=== PATIENT | male | born 1945 | race Caucasian/White ===

== ENCOUNTER 2016-07-03 08:00 | Outpatient (CLI) | payer MEDICARE, MEDICAID | END 2016-07-03 08:01 | disposition home or self-care (01) | DX: E11.9 Type 2 diabetes mellitus without complications (principal) ==

== ENCOUNTER 2016-10-06 08:56 | Outpatient (CLI) | payer MEDICARE, MEDICAID | END 2016-10-06 08:57 | disposition home or self-care (01) | LOC: LAB.N 08:56 | PROVIDERS: ATTEND Nurse Practitioner Gerontology | DX: E11.9 Type 2 diabetes mellitus without complications (principal) | CPT/HCPCS: 36415; 83036 ==

== ENCOUNTER 2016-10-12 09:33 | Outpatient (CLI) | payer MEDICARE, MEDICAID ==
--- NOTE | 2016-10-12 11:46 | XRAY Report ---
TWO VIEW BILATERAL CALCANEUS: 10/12/2016 CLINICAL INDICATION: Bilateral pain. FINDINGS: Frontal and lateral views of the bilateral calcanei demonstrate degenerative changes, with small plantar and posterior calcaneal spurs. There is no evidence of acute fracture. IMPRESSION: DEGENERATIVE CHANGES. NO EVIDENCE OF CALCANEAL FRACTURE. JOB #: [id number] EXT JOB #:[id number]
== END 2016-10-12 09:34 | disposition home or self-care (01) ==
LOC: DI 09:33
PROVIDERS: ATTEND Podiatrist
DX: M79.672 Pain in left foot (principal); M19.072 Primary osteoarthritis, left ankle and foot; M19.071 Primary osteoarthritis, right ankle and foot; M77.32 Calcaneal spur, left foot; M77.31 Calcaneal spur, right foot

== ENCOUNTER 2017-01-19 08:00 | Outpatient (CLI) | payer MEDICARE, MEDICAID ==
[2017-01-19 20:27] LABS: HEMOGLOBIN A1C 0.98 g/dL
== END 2017-01-19 08:01 | disposition home or self-care (01) ==
LOC: LAB.N 08:00
PROVIDERS: ATTEND Nurse Practitioner Gerontology
DX: E11.9 Type 2 diabetes mellitus without complications (principal)
CPT/HCPCS: 36415; 83036

== ENCOUNTER 2017-04-23 08:00 | Outpatient (CLI) | payer MEDICARE, MEDICAID ==
[2017-04-23 13:29] LABS: BASOPHILS # (AUTO) 0.1 10^3/uL (0.0-0.1); BASOPHILS % (AUTO) 0.6 %; EOSINOPHILS # (AUTO) 0.2 10^3/uL (0.0-0.7); EOSINOPHILS % (AUTO) 1.5 %; HGB - HEMOGLOBIN 14.4 g/dL (14.0-18.0); LYMPHOCYTES # (AUTO) 2.6 10^3/uL (1.5-3.5); LYMPHOCYTES % (AUTO) 20.7 %; MEAN CORPUSCULAR HEMOGLOBIN 29.1 pg (27.0-31.0); MEAN CORPUSCULAR HGB CONC 33.1 g/dL (32.0-36.0); MEAN CORPUSCULAR VOLUME 87.9 fL (80.0-94.0); MEAN PLATELET VOLUME 8.8 fL (7.4-11.4); MONOCYTES # (AUTO) 0.9 10^3/uL (0.0-1.0); MONOCYTES % (AUTO) 6.8 %; NEUTROPHILS # (AUTO) 8.8 10^3/uL (1.5-6.6); NEUTROPHILS % (AUTO) 70.4 %; PLT - PLATELET COUNT 231 10^3/uL (130-450); RED BLOOD COUNT 4.94 10^6/uL (4.70-6.10); RED CELL DISTRIBUTION WIDTH 14.1 % (12.0-15.0); WHITE BLOOD COUNT 12.5 x10^3/uL (4.8-10.8)
[2017-04-23 13:41] LABS: ALBUMIN 3.6 g/dL (3.2-5.5); ALBUMIN/GLOBULIN RATIO 1.2 (1.0-2.2); ALKALINE PHOSPHATASE 47 IU/L (42-121); ALT ALANINE AMINOTRANSFERASE 22 IU/L (10-60); AST ASPARTATE AMINOTRANSFERASE 16 IU/L (10-42); BILIRUBIN,TOTAL 0.4 mg/dL (0.2-1.0); BUN - BLOOD UREA NITROGEN 16 mg/dL (6-20); CALCIUM 8.6 mg/dL (8.5-10.3); CARBON DIOXIDE - CO2 26 mmol/L (21-32); CHLORIDE 106 mmol/L (101-111); CHOL/HDL RATIO 3.4 (<5.0); CHOLESTEROL 127 mg/dL; CREATININE 0.9 mg/dL (0.6-1.2); GFR - MDRD 83 (>89); GLUCOSE 145 mg/dL (70-100); HDL CHOLESTEROL 37 mg/dL; LDL CHOLESTEROL,CALCULATED 77 mg/dL; LDL/HDL RATIO 2.1 (<3.6); SODIUM 137 mmol/L (135-145); TOTAL PROTEIN 6.6 g/dL (6.7-8.2); VLDL CHOLESTEROL 13 mg/dL
[2017-04-23 13:43] LABS: HB2 TOTAL 16.1 g/dL; HEMOGLOBIN A1C 0.98 g/dL; HEMOGLOBIN A1C % 7.7 % (4.6-6.2)
== END 2017-04-23 08:01 | disposition home or self-care (01) ==
LOC: LAB.N 08:00
PROVIDERS: ATTEND Nurse Practitioner Gerontology
DX: I10 Essential (primary) hypertension (principal); E11.9 Type 2 diabetes mellitus without complications; E78.1 Pure hyperglyceridemia; E78.5 Hyperlipidemia, unspecified
CPT/HCPCS: 36415; 80053; 80061; 83036; 85025

== ENCOUNTER 2017-07-23 08:05 | Outpatient (CLI) | payer MEDICARE, MEDICAID ==
[2017-07-23 12:37] LABS: HB2 TOTAL 16.3 g/dL; HEMOGLOBIN A1C 0.97 g/dL; HEMOGLOBIN A1C % 7.6 % (4.6-6.2)
== END 2017-07-23 08:06 | disposition home or self-care (01) ==
LOC: LAB.N 08:05
PROVIDERS: ATTEND Nurse Practitioner Gerontology
DX: E11.9 Type 2 diabetes mellitus without complications (principal)
CPT/HCPCS: 36415; 83036

== ENCOUNTER 2017-10-27 08:00 | Outpatient (CLI) | payer MEDICARE, MEDICAID ==
[2017-10-27 13:11] LABS: ALBUMIN 3.4 g/dL (3.2-5.5); ALBUMIN/GLOBULIN RATIO 0.9 (1.0-2.2); BILIRUBIN,TOTAL 0.5 mg/dL (0.2-1.0); CALCIUM 8.8 mg/dL (8.5-10.3); CREATININE 0.9 mg/dL (0.6-1.2); TOTAL PROTEIN 7.1 g/dL (6.7-8.2)
[2017-10-27 13:19] LABS: HB2 TOTAL 16.1 g/dL; HEMOGLOBIN A1C 0.9 g/dL; HEMOGLOBIN A1C % 7.3 % (4.6-6.2)
== END 2017-10-27 08:01 | disposition home or self-care (01) ==
LOC: LAB.N 08:00
PROVIDERS: ATTEND Nurse Practitioner Gerontology
DX: E11.9 Type 2 diabetes mellitus without complications (principal); R25.2 Cramp and spasm
CPT/HCPCS: 36415; 80053; 83036; 83735

== ENCOUNTER 2018-02-11 09:12 | Outpatient (CLI) | payer MEDICARE, MEDICAID ==
[2018-02-11 13:24] LABS: ALBUMIN 3.7 g/dL (3.2-5.5); ALBUMIN/GLOBULIN RATIO 1.2 (1.0-2.2); BILIRUBIN,TOTAL 0.5 mg/dL (0.2-1.0); CALCIUM 8.7 mg/dL (8.5-10.3); CREATININE 1.1 mg/dL (0.6-1.2); MAGNESIUM 1.9 mg/dL (1.7-2.8); TOTAL PROTEIN 6.9 g/dL (6.7-8.2)
[2018-02-11 14:13] LABS: HB2 TOTAL 15.7 g/dL; HEMOGLOBIN A1C 0.86 g/dL; HEMOGLOBIN A1C % 7.2 % (4.6-6.2)
== END 2018-02-11 09:13 | disposition home or self-care (01) ==
LOC: LAB.N 09:12
PROVIDERS: ATTEND Nurse Practitioner Gerontology
DX: E11.9 Type 2 diabetes mellitus without complications (principal); R25.2 Cramp and spasm
CPT/HCPCS: 36415; 80053; 83036; 83735

== ENCOUNTER 2018-06-02 08:00 | Outpatient (CLI) | payer MEDICARE, MEDICAID ==
[2018-06-02 13:21] LABS: HB2 TOTAL 16.1 g/dL; HEMOGLOBIN A1C 0.97 g/dL; HEMOGLOBIN A1C % 7.7 % (4.6-6.2)
== END 2018-06-02 23:59 | disposition home or self-care (01) ==
LOC: LAB.N 08:00
PROVIDERS: ATTEND Nurse Practitioner Gerontology
DX: E11.9 Type 2 diabetes mellitus without complications (principal)
CPT/HCPCS: 36415; 83036

== ENCOUNTER 2018-09-01 14:03 | Outpatient (CLI) | payer MEDICARE, MEDICAID ==
[2018-09-01 19:23] LABS: HB2 TOTAL 15.4 g/dL; HEMOGLOBIN A1C 0.98 g/dL
== END 2018-09-01 23:59 | disposition home or self-care (01) ==
LOC: LAB.N 14:03
PROVIDERS: ATTEND Nurse Practitioner Gerontology
DX: E11.9 Type 2 diabetes mellitus without complications (principal)
CPT/HCPCS: 36415; 83036

== ENCOUNTER 2018-12-05 08:00 | Outpatient (CLI) | payer MEDICARE, MEDICAID ==
[2018-12-05 19:10] LABS: CREATININE 0.8 mg/dL (0.6-1.2)
[2018-12-05 19:44] LABS: HB2 TOTAL 16.3 g/dL; HEMOGLOBIN A1C 1.04 g/dL
== END 2018-12-05 23:59 | disposition home or self-care (01) ==
LOC: LAB.N 08:00
PROVIDERS: ATTEND Nurse Practitioner Gerontology
DX: E11.9 Type 2 diabetes mellitus without complications (principal)
CPT/HCPCS: 36415; 80048; 82043; 83036

== ENCOUNTER 2019-04-18 13:31 | Outpatient (CLI) | payer MEDICARE, MEDICAID ==
[2019-04-18 19:17] LABS: HEMOGLOBIN A1C 0.9 g/dL; HEMOGLOBIN A1C % 7.6 % (4.6-6.2)
== END 2019-04-18 23:59 | disposition home or self-care (01) ==
LOC: LAB.N 13:31
PROVIDERS: ATTEND Nurse Practitioner Gerontology
DX: E11.9 Type 2 diabetes mellitus without complications (principal)
CPT/HCPCS: 36415; 83036

== ENCOUNTER 2019-08-08 08:00 | Outpatient (CLI) | payer MEDICARE, MEDICAID ==
[2019-08-08 17:16] LABS: CALCIUM 8.6 mg/dL (8.5-10.3); CREATININE 0.9 mg/dL (0.6-1.2)
[2019-08-08 17:53] LABS: HB2 TOTAL 15.2 g/dL; HEMOGLOBIN A1C 0.8 g/dL
== END 2019-08-08 23:59 | disposition home or self-care (01) ==
LOC: LAB.WCP 08:00
PROVIDERS: ATTEND Physician Assistant Medical
DX: E11.9 Type 2 diabetes mellitus without complications (principal)
CPT/HCPCS: 36415; 80048; 83036

== ENCOUNTER 2020-01-09 08:00 | Outpatient (CLI) | payer MEDICARE, MEDICAID ==
[2020-01-09 19:19] LABS: THYROID STIMULATING HORMONE 0.8 uIU/mL (0.34-5.60)
[2020-01-09 19:20] LABS: FREE T3 3.25 pg/mL (2.5-3.9)
[2020-01-09 19:21] LABS: FREE T4 (FREE THYROXINE) 0.89 ng/dL (0.58-1.64)
[2020-01-09 20:09] LABS: HEMOGLOBIN A1c% 7.8 % (4.27-6.07)
== END 2020-01-09 23:59 | disposition home or self-care (01) ==
LOC: LAB.WCP 08:00
PROVIDERS: ATTEND Family Medicine
DX: E78.5 Hyperlipidemia, unspecified (principal); E11.9 Type 2 diabetes mellitus without complications; I10 Essential (primary) hypertension
CPT/HCPCS: 36415; 80053; 80061; 83036; 83721; 84439; 84443; 84481

== ENCOUNTER 2020-04-09 08:35 | Outpatient (CLI) | payer MEDICARE, MEDICAID ==
[2020-04-09 13:47] LABS: CALCIUM 9.4 mg/dL (8.5-10.3); CREATININE 0.9 mg/dL (0.6-1.2)
[2020-04-09 14:11] LABS: HEMOGLOBIN A1c% 7.5 % (4.27-6.07)
== END 2020-04-09 23:59 | disposition home or self-care (01) ==
LOC: LAB.WCP 08:35
PROVIDERS: ATTEND Family Medicine
DX: I10 Essential (primary) hypertension (principal); E11.9 Type 2 diabetes mellitus without complications
CPT/HCPCS: 36415; 80048; 83036

== ENCOUNTER 2020-10-08 08:00 | Outpatient (CLI) | payer MEDICARE, MEDICAID ==
[2020-10-08 11:40] LABS: BASOPHILS # (AUTO) 0.1 10^3/uL (0.0-0.1); BASOPHILS % (AUTO) 0.5 %; EOSINOPHILS # (AUTO) 0.2 10^3/uL (0.0-0.7); EOSINOPHILS % (AUTO) 2.1 %; HCT - HEMATOCRIT 45.2 % (42.0-52.0); HGB - HEMOGLOBIN 14.7 g/dL (14.0-18.0); LYMPHOCYTES # (AUTO) 2.7 10^3/uL (1.5-3.5); LYMPHOCYTES % (AUTO) 23.5 %; MEAN CORPUSCULAR HEMOGLOBIN 29.5 pg (27.0-31.0); MEAN CORPUSCULAR HGB CONC 32.5 g/dL (32.0-36.0); MEAN CORPUSCULAR VOLUME 90.8 fL (80.0-94.0); MEAN PLATELET VOLUME 10.4 fL (7.4-11.4); MONOCYTES # (AUTO) 0.9 10^3/uL (0.0-1.0); MONOCYTES % (AUTO) 8.2 %; NEUTROPHILS # (AUTO) 7.5 10^3/uL (1.5-6.6); NEUTROPHILS % (AUTO) 65.1 %; PLT - PLATELET COUNT 234 10^3/uL (130-450); RED BLOOD COUNT 4.98 10^6/uL (4.70-6.10); RED CELL DISTRIBUTION WIDTH 14.1 % (12.0-15.0); WHITE BLOOD COUNT 11.5 x10^3/uL (4.8-10.8)
[2020-10-08 12:07] LABS: ALBUMIN 3.9 g/dL (3.2-5.5); ALBUMIN/GLOBULIN RATIO 1.4 (1.0-2.2); ALKALINE PHOSPHATASE 46 IU/L (42-121); ALT ALANINE AMINOTRANSFERASE 20 IU/L (10-60); AST ASPARTATE AMINOTRANSFERASE 14 IU/L (10-42); BILIRUBIN,TOTAL 0.6 mg/dL (0.2-1.0); BUN - BLOOD UREA NITROGEN 13 mg/dL (6-20); CALCIUM 8.8 mg/dL (8.5-10.3); CARBON DIOXIDE - CO2 24 mmol/L (21-32); CHLORIDE 106 mmol/L (101-111); CHOL/HDL RATIO 3.1 (<5.0); CHOLESTEROL 134 mg/dL; CREATININE 0.8 mg/dL (0.6-1.2); GFR - MDRD 94 (>89); GLUCOSE 87 mg/dL (70-100); HDL CHOLESTEROL 43 mg/dL; LDL CHOLESTEROL,CALCULATED 77 mg/dL; LDL/HDL RATIO 1.8 (<3.6); SODIUM 139 mmol/L (135-145); TOTAL PROTEIN 6.6 g/dL (6.7-8.2); TRIGLYCERIDES 72 mg/dL; VLDL CHOLESTEROL 14 mg/dL
[2020-10-08 12:11] LABS: THYROID STIMULATING HORMONE 1.31 uIU/mL (0.34-5.60)
== END 2020-10-08 23:59 | disposition home or self-care (01) ==
LOC: LAB.WCP 08:00
PROVIDERS: ATTEND Family Medicine
DX: E78.5 Hyperlipidemia, unspecified (principal); R35.0 Frequency of micturition; G90.50 Complex regional pain syndrome I, unspecified; I10 Essential (primary) hypertension; E11.9 Type 2 diabetes mellitus without complications
CPT/HCPCS: 36415; 80053; 80061; 83721; 84153; 84443; 85025

== ENCOUNTER 2022-10-23 07:18 | Outpatient (CLI) | payer MEDICARE, MEDICAID ==
[2022-10-23 13:09] LABS: CALCIUM 8.8 mg/dL (8.5-10.3); CREATININE 0.9 mg/dL (0.6-1.2); POTASSIUM 3.7 mmol/L (3.5-5.0)
[2022-10-23 14:01] LABS: ESTIMATED AVERAGE GLUCOSE 189 mg/dL (70-100); HEMOGLOBIN A1c% 8.2 % (4.27-6.07)
== END 2022-10-23 07:19 | disposition home or self-care (01) ==
LOC: LAB.N 07:18
PROVIDERS: ATTEND Family Medicine
DX: I10 Essential (primary) hypertension (principal); E11.9 Type 2 diabetes mellitus without complications; E66.9 Obesity, unspecified; F17.210 Nicotine dependence, cigarettes, uncomplicated
CPT/HCPCS: 36415; 80048; 83036

== ENCOUNTER 2023-02-04 08:51 | Outpatient (CLI) | payer MEDICARE, MEDICAID ==
[2023-02-04 12:14] LABS: CREATININE,URINE 112.3 mg/dL; MICROALBUM/CREATININE RATIO,UR 88.2 ug/mg (<30.0); MICROALBUMIN,URINE 9.9 mg/dL
[2023-02-04 12:23] LABS: ALBUMIN 3.9 g/dL (3.2-5.5); ALBUMIN/GLOBULIN RATIO 1.6 (1.0-2.2); ALKALINE PHOSPHATASE 56 IU/L (42-121); ALT ALANINE AMINOTRANSFERASE 11 IU/L (10-60); AST ASPARTATE AMINOTRANSFERASE 10 IU/L (10-42); BILIRUBIN,TOTAL 0.5 mg/dL (0.2-1.0); BUN - BLOOD UREA NITROGEN 12 mg/dL (6-20); CALCIUM 9.1 mg/dL (8.5-10.3); CARBON DIOXIDE - CO2 29 mmol/L (21-32); CHLORIDE 106 mmol/L (101-111); CHOL/HDL RATIO 3.4 (<5.0); CHOLESTEROL 130 mg/dL; CREATININE 0.8 mg/dL (0.6-1.3); GFR - MDRD 93 (>89); GLUCOSE 111 mg/dL (74-104); HDL CHOLESTEROL 38 mg/dL; LDL CHOLESTEROL,CALCULATED 76 mg/dL; POTASSIUM 4.1 mmol/L (3.5-4.5); SODIUM 140 mmol/L (135-145); TOTAL PROTEIN 6.4 g/dL (6.4-8.9); TRIGLYCERIDES 78 mg/dL (48-352); VLDL CHOLESTEROL 16 mg/dL
[2023-02-04 12:24] LABS: BASOPHILS # (AUTO) 0.1 10^3/uL (0.0-0.1); BASOPHILS % (AUTO) 0.5 %; EOSINOPHILS # (AUTO) 0.3 10^3/uL (0.0-0.7); HCT - HEMATOCRIT 47.5 % (42.0-52.0); HGB - HEMOGLOBIN 15.1 g/dL (14.0-18.0); LYMPHOCYTES # (AUTO) 2.5 10^3/uL (1.5-3.5); LYMPHOCYTES % (AUTO) 17.5 %; MEAN CORPUSCULAR HEMOGLOBIN 28.8 pg (27.0-31.0); MEAN CORPUSCULAR HGB CONC 31.8 g/dL (32.0-36.0); MEAN CORPUSCULAR VOLUME 90.5 fL (80.0-94.0); MEAN PLATELET VOLUME 10.2 fL (7.4-11.4); MONOCYTES % (AUTO) 6.8 %; NEUTROPHILS # (AUTO) 10.2 10^3/uL (1.5-6.6); NEUTROPHILS % (AUTO) 71.9 %; PLT - PLATELET COUNT 301 10^3/uL (130-450); RED BLOOD COUNT 5.25 10^6/uL (4.70-6.10); RED CELL DISTRIBUTION WIDTH 13.8 % (12.0-15.0); WHITE BLOOD COUNT 14.2 x10^3/uL (4.8-10.8)
[2023-02-04 12:25] LABS: THYROID STIMULATING HORMONE 1.46 uIU/mL (0.34-5.60)
[2023-02-04 12:31] LABS: ESTIMATED AVERAGE GLUCOSE 203 mg/dL (70-100); HEMOGLOBIN A1c% 8.7 % (4.27-6.07)
== END 2023-02-04 08:52 | disposition home or self-care (01) ==
LOC: LAB.N 08:51
PROVIDERS: ATTEND Family Medicine
DX: I10 Essential (primary) hypertension (principal); E11.65 Type 2 diabetes mellitus with hyperglycemia; Z79.4 Long term (current) use of insulin; E66.9 Obesity, unspecified; F17.210 Nicotine dependence, cigarettes, uncomplicated; E78.1 Pure hyperglyceridemia; E78.5 Hyperlipidemia, unspecified
CPT/HCPCS: 36415; 80053; 80061; 82043; 82570; 83036; 83721; 84443; 85025

== ENCOUNTER 2023-04-02 23:41 | Outpatient (CLI) | payer MEDICARE, MEDICAID | END 2023-04-02 23:59 | disposition critical access hospital (66) | LOC: EMS 23:41 | DX: R33.9 Retention of urine, unspecified (principal); R31.9 Hematuria, unspecified | CPT/HCPCS: A0425; A0429 ==

== ENCOUNTER 2023-04-02 23:58 | Emergency (ER) | payer MEDICARE, MEDICAID ==
[2023-04-03] MEDS ORDERED: MORPHINE 2 MG/ML CARPUJECT IVP STA ×2 (00:09→00:24)
[2023-04-03] MEDS ORDERED: ONDANSETRON 4 MG/2 ML VIAL IVP STA (00:09)
[2023-04-03 00:20] LABS: BASOPHILS # (AUTO) 0.1 10^3/uL (0.0-0.1); BASOPHILS % (AUTO) 0.3 %; EOSINOPHILS # (AUTO) 0.1 10^3/uL (0.0-0.7); EOSINOPHILS % (AUTO) 0.7 %; HGB - HEMOGLOBIN 9.1 g/dL (14.0-18.0); LYMPHOCYTES # (AUTO) 2.8 10^3/uL (1.5-3.5); LYMPHOCYTES % (AUTO) 16.3 %; MEAN CORPUSCULAR HEMOGLOBIN 28.7 pg (27.0-31.0); MEAN CORPUSCULAR HGB CONC 32.5 g/dL (32.0-36.0); MEAN CORPUSCULAR VOLUME 88.3 fL (80.0-94.0); MEAN PLATELET VOLUME 8.6 fL (7.4-11.4); MONOCYTES # (AUTO) 1.3 10^3/uL (0.0-1.0); MONOCYTES % (AUTO) 7.2 %; NEUTROPHILS # (AUTO) 12.9 10^3/uL (1.5-6.6); NEUTROPHILS % (AUTO) 74.2 %; PLT - PLATELET COUNT 406 10^3/uL (130-450); RED BLOOD COUNT 3.17 10^6/uL (4.70-6.10); RED CELL DISTRIBUTION WIDTH 13.5 % (12.0-15.0); WHITE BLOOD COUNT 17.4 x10^3/uL (4.8-10.8)
[2023-04-03] MEDS ORDERED: LORazepam 2 MG/ML VIAL IVP STA (00:24)
[2023-04-03 00:34] LABS: ALBUMIN 3.7 g/dL (3.2-5.5); ALBUMIN/GLOBULIN RATIO 1.3 (1.0-2.2); BILIRUBIN,TOTAL 0.3 mg/dL (0.2-1.0); CALCIUM 9.1 mg/dL (8.5-10.3); CREATININE 1.7 mg/dL (0.6-1.3); POTASSIUM 4.4 mmol/L (3.5-4.5); TOTAL PROTEIN 6.5 g/dL (6.4-8.9)
[2023-04-03 01:03] LABS: INR 1.2 (0.8-1.2); PT - PROTHROMBIN TIME 13.1 secs (9.9-12.6)
[2023-04-03 01:14] LABS: BILIRUBIN,URINE NEGATIVE (NEGATIVE); GLUCOSE, URINE (UA) NEGATIVE (NEGATIVE); KETONES,URINE (UA) NEGATIVE (NEGATIVE); LEUKOCYTE ESTERASE, URINE NEGATIVE (NEGATIVE); NITRITE,URINE NEGATIVE (NEGATIVE); OCCULT BLOOD,URINE LARGE (NEGATIVE); PH,URINE 5.5 PH (5.0-7.5); PROTEIN,URINE NEGATIVE (NEGATIVE); UROBILINOGEN,URINE 0.2 (NORMAL) E.U./dL (NORMAL)
--- NOTE | 2023-04-03 01:14 | ED Physician Documentation ---
History of Present Illness - Stated complaint Stated Complaint: - Chief complaint Chief Complaint: Abd Pain - Additonal information Additional information: Patient is 77-year-old male brought into the emergency department via EMS for inability to urinate. Reports 2 days since last urination. Reports pink-tinged urine ongoing for the last several months as well as brief episodes in which she was similarly unable to urinate which self resolved at home. Denies any known history enlarged prostate or previous episodes of hematuria/outlet obstruction. Reports has felt sweaty at night but is uncertain if he has had night sweats. Denies any unexplained weight loss. Past medical significant for diabetes, high blood pressure. Current medications include Norvasc, Lipitor, daily 81 mg aspirin, docusate, glipizide, amlodipine Review of Systems Constitutional: denies: Fever Eyes: denies: Loss of vision Ears: denies: Loss of hearing Nose: denies: Rhinorrhea / runny nose Throat: denies: Dental pain / toothache Cardiac: denies: Chest pain / pressure Respiratory: denies: Dyspnea GI: reports: Abdominal Pain : reports: Unable to Void, Hematuria PD PAST MEDICAL HISTORY - Past Medical History Cardiovascular: Hypertension, High cholesterol Respiratory: Other Endocrine/Autoimmune: Type 2 diabetes GI: Hemorrhoids : Kidney stones HEENT: Other Psych: None Musculoskeletal: None Derm: None - Past Surgical History Past Surgical History: Yes General: Colonoscopy - Present Medications Home Medications: Ambulatory Orders Medication Instructions Recorded Confirmed amLODIPine [Norvasc] 5 mg PO QPM 01/17/14 04/03/23 Aspirin [Aspir 81] 81 mg PO DAILY 02/20/15 04/03/23 Docusate Sodium 100 mg PO QPM 02/20/15 04/03/23 Lisinopril 20 mg PO DAILY 02/20/15 04/03/23 Atorvastatin [Lipitor] 20 mg PO QPM 04/03/23 04/03/23 Insulin Glargine [Lantus Solostar] 45 units SUBQ HS 04/03/23 04/03/23 Ipratropium/Albuterol [Combivent 1 puffs INH Q6HR PRN 04/03/23 04/03/23 Respimat] Linagliptin [Tradjenta] 5 mg PO DAILY 04/03/23 04/03/23 - Allergies Allergies/Adverse Reactions: Allergies Allergy/AdvReac Type Severity Reaction Status Date / Time Penicillins Allergy Severe Rash Verified 01/18/14 10:14 felisa Allergy throat Verified 02/20/15 11:29 swells guava Allergy throat Uncoded 02/20/15 11:29 swells papaya Allergy throat Uncoded 02/20/15 11:29 swells - Social History Does the pt smoke?: Yes Smoking Status: Current every day smoker Does the pt drink ETOH?: No Does the pt have substance abuse?: No - Immunizations Immunizations are current?: Yes - POLST Patient has POLST: No PD ED PE NORMAL - Vitals Vital signs reviewed: Yes - General General: Alert and oriented X 3, Other (Patient in significant amounts of distress on arrival.). No: No acute distress - HEENT HEENT: Atraumatic - Neck Neck: Supple, no meningeal sign - Cardiac Cardiac: RRR, No gallop - Respiratory Respiratory: No respiratory distress, Clear bilaterally - Abdomen Abdomen: Normal bowel sounds, Non tender, No organomegaly - Male Male : Deferred - Rectal Rectal: Deferred - Back Back: No CVA TTP - Derm Derm: Normal color - Extremities Extremities: No deformity, No edema - Neuro Neuro: Alert and oriented X 3, social services coordinator 2-12 intact, No motor deficit, Normal speech Results - Vitals Vitals: Vital Signs - 24 hr 04/03/23 04/03/23 04/03/23 00:00 00:31 01:00 Temperature 37 C Heart Rate 81 81 72 Respiratory 26 H 22 13 Rate Blood Pressure 214/99 H 152/66 H 143/57 H O2 Saturation 100 100 100 04/03/23 04/03/23 04/03/23 01:30 02:00 02:30 Temperature Heart Rate 80 91 85 Respiratory 17 18 18 Rate Blood Pressure 138/63 H 152/63 H 133/61 H O2 Saturation 98 98 96 04/03/23 04/03/23 04/03/23 03:24 03:30 04:00 Temperature Heart Rate 81 82 95 Respiratory 18 17 14 Rate Blood Pressure 142/67 H 138/64 H 138/64 H O2 Saturation 94 92 93 04/03/23 04/03/23 04/03/23 04:30 05:00 05:30 Temperature Heart Rate 79 78 76 Respiratory 15 14 14 Rate Blood Pressure 127/61 123/68 120/66 O2 Saturation 91 L 93 95 04/03/23 04/03/23 06:00 06:30 Temperature Heart Rate 78 78 Respiratory 16 19 Rate Blood Pressure 135/64 H 147/61 H O2 Saturation 91 L 92 Oxygen O2 Source Room air - Labs Labs: Laboratory Tests 04/03/23 04/03/23 04/03/23 00:16 00:16 00:16 WBC 17.4 H RBC 3.17 L Hgb 9.1 L Hct 28.0 L MCV 88.3 MCH 28.7 MCHC 32.5 RDW 13.5 Plt Count 406 MPV 8.6 Neut # (Auto) 12.9 H Lymph # (Auto) 2.8 [place] # (Auto) 1.3 H Eos # (Auto) 0.1 Baso # (Auto) 0.1 Absolute Nucleated RBC 0.00 Nucleated RBC % 0.0 PT 13.1 H INR 1.2 Sodium 134 L Potassium 4.4 Chloride 105 Carbon Dioxide 21 Anion Gap 8.0 BUN 21 H Creatinine 1.7 H Estimated GFR (MDRD) 39 L Glucose 206 H Calcium 9.1 Total Bilirubin 0.3 AST 13 ALT 19 Alkaline Phosphatase 52 Total Protein 6.5 Albumin 3.7 Globulin 2.8 Albumin/Globulin Ratio 1.3 Lipase 30 Urine Color Urine Clarity Urine pH Ur Specific [place] Urine Protein Urine Glucose (UA) Urine Ketones Urine Occult Blood Urine Nitrite Urine Bilirubin Urine Urobilinogen Ur Leukocyte Esterase Urine RBC Urine WBC Ur Squamous Epith Cells Urine Bacteria Ur Microscopic Review Urine Culture Comments Blood Type Blood Type Recheck Antibody Screen 04/03/23 04/03/23 04/03/23 00:56 01:00 04:03 WBC RBC Hgb Hct MCV MCH MCHC RDW Plt Count MPV Neut # (Auto) Lymph # (Auto) [place] # (Auto) Eos # (Auto) Baso # (Auto) Absolute Nucleated RBC Nucleated RBC % PT INR Sodium Potassium Chloride Carbon Dioxide Anion Gap BUN Creatinine Estimated GFR (MDRD) Glucose Calcium Total Bilirubin AST ALT Alkaline Phosphatase Total Protein Albumin Globulin Albumin/Globulin Ratio Lipase Urine Color COLORLESS Urine Clarity CLEAR Urine pH 5.5 Ur Specific [place] <=1.005 Urine Protein NEGATIVE Urine Glucose (UA) NEGATIVE Urine Ketones NEGATIVE Urine Occult Blood LARGE H Urine Nitrite NEGATIVE Urine Bilirubin NEGATIVE Urine Urobilinogen 0.2 (NORMAL) Ur Leukocyte Esterase NEGATIVE Urine RBC TNTC H Urine WBC 0-3 Ur Squamous Epith Cells RARE Squamous Urine Bacteria None Seen Ur Microscopic Review INDICATED Urine Culture Comments NOT INDICATED Blood Type A NEGATIVE Blood Type Recheck A NEGATIVE Antibody Screen NEGATIVE PD Medical Decision Making - ED course Complexity details: reviewed results, re-evaluated patient, d/w marketing database consultant ED course: Patient 77-year-old male presenting to the emergency department with concern for acute bladder outlet obstruction in setting gross hematuria. Arrives via EMS in a significant amount of distress but otherwise hemodynamically stable. Significant suprapubic tenderness noted on initial evaluation. Examination of his external genitalia is grossly normal. The remainder of his abdominal exam was similarly normal. No indications acute abdomen. Initial attempt to pass Herbert catheter had small scant return of blood clots. Three-way stopcock applied and push pull with significant removal of clots however no free flow of urine. Patient reported some improvement but remained significantly distressed despite these interventions. Subsequently given doses morphine, Zofran, lorazepam for symptomatic management and monitored carefully after the administration of these medications. Continuous bladder irrigation was initiated with continuous output of small pink-tinged fluid without passage of larger notable clots. Labs demonstrate significant drop in patient's baseline hemoglobin with hemoglobin 9.1 with baseline 14-15. Similarly patient demonstrates acute kidney injury with creatinine 1.7 with baseline 0.8. He also has a significant white blood cell count however there is no indication Of infection in his urine or other infectious sources.. Antibiotics were considered but held Pending specialist consultation. Noncontrast CT of the chest abdomen pelvis was obtained. Demonstrated urinary bladder wall thickening, possibly related to cystitis or hemorrhage as well as a small amount of intraluminal hemorrhage suspected. A chronic left hydroureteronephrosis and dilatation of the upper pole of the collecting system on the right without obvious urolithiasis. Bilateral renal cysts were noted. Pancreatic calcifications were noted which raise the possibility of chronic pancreatitis of the patient had no significant elevation in lipase and no epigastric tenderness here in the emergency room. Additionally he was incidentally noted to have a focal density at the fundus of the gallbladder, similar in appearance to previous imaging in 2014 likely represent polyp or foc al adenomyomatosis. Patient continued to undergo continuous bladder irrigation with pink-tinged output for several hours in the emergency department. Additionally he continued to demonstrate significant episodes of lower bladder pain. Given his significant drop in hemoglobin, continuous hematuria as well as tenuous renal function plan was made for transfer. Transfer was necessary as there is no urology service available at our facility for the next few days. His care was discussed with the transfer center at [facility] who did report that they were attempting to get in touch with their urologist. At this time I am awaiting callback from local facilities as the patient will benefit from higher level of care with urology and other specialist services as needed. I will be signing him out to the oncoming physician, please see their documentation for further detail. Departure - Departure Forms: PCP List
[2023-04-03 01:44] LABS: CLARITY,URINE CLEAR (CLEAR)
[2023-04-03 01:45] LABS: WBC,URINE 0-3 /HPF (0-3)
[2023-04-03 01:46] LABS: BACTERIA,URINE None Seen /HPF (None Seen); RBC,URINE TNTC /HPF (0-5); SQUAMOUS EPITHELIAL CELL,UR RARE Squamous (<= Few)
[2023-04-03] MEDS ORDERED: HYDROmorphone 1 MG/ML CARPUJECT IVP STA ×4 (01:58→08:50)
[2023-04-03] MEDS ORDERED: SODIUM CHLORIDE 0.9% 1,000 ML IV STA (04:22)
[2023-04-03] MEDS ORDERED: cefTRIAXone 1 GM in SODIUM CHLORIDE 0.9% MINIBAG 100 ML IV STA (08:19)
--- NOTE | 2023-04-03 08:19 | ED Physician Documentation ---
ED Addendum - Addendum Addendum: 04/03/23 08:08 77-year-old Hugh Cason is left in my care after having a three-way Keith catheter placed and irrigation with continued pink-tinged urine. He has lost 6 g of hemoglobin in the past month and continues to have hematuria. He is reported as having episodic bladder spasm requiring intravenous Dilaudid for control. He continues to have clot retention with bladder spasm with [address] He reports 2 months of pink tinged urine and intermittent symptoms of JAIMES. Today it looks like there is infection as well with fat stranding around the bladder and elevated WBC. He is treated here with IV Rocephin. We do not have general medical beds available today and we do not have urology available. I have spoken to Dr. Arthur urology at and he will accept in transfer with Dr Berumen the accepting hospitalist. Dr. Arthur recommends treatment for cystitis and B&O suppository which is not available here. Impression: Acute urinary retention, hematuria with anemia, cystitis, bladder spasm Plan: Transfer to [facility] with Dr. Berumen accepting Dr. Arthur consulting. 04/03/23 09:06
[2023-04-03] MEDS ORDERED: cefTRIAXone 1 GM VIAL ONE (08:23)
[2023-04-03 09:33] VITALS: O2SAT 94
--- NOTE | 2023-04-03 09:48 | CT Report ---
PROCEDURE: ABDOMEN/PELVIS WO INDICATIONS: Evalution gross hematuria TECHNIQUE: A CT scan of the abdomen and pelvis was performed without the use of intravenous contrast. Images we re recorded and evaluated at appropriate window settings. Reformats: coronal and sagittal. For radiat ion dose reduction, the following was used: automated exposure control, adjustment of mA and/or kV ac cording to patient size. COMPARISON: 12/29/2013 FINDINGS: Image quality: Excellent. Lung bases and heart: Unremarkable. Liver: No solid mass. Gallbladder and biliary tree: Hyperdensity with thickening can be seen involving the fundus of the ga llbladder. Spleen: No splenomegaly. Pancreas: No pancreatic ductal dilation. Desiccation can be seen along the pancreas. Adrenals: No adrenal nodule. Kidneys and ureters: There is moderate left-sided and mild right-sided hydronephrosis. There is at le ast moderate left-sided hydroureter, with mild right-sided hydroureter. No obstructing stones are see n. No nonobstructing kidney stones can be seen. Simple appearing exophytic renal cysts can be seen on both sides. There is made of calcification of the renal arteries. Bowel and peritoneum: No bowel distension. No pathologic free fluid. Lymph nodes: No central or retroperitoneal adenopathy. Vessels: No infrarenal aortic aneurysm. Atherosclerotic calcification is seen. PELVIS Reproductive organs: Unremarkable. Bladder: A Herbert catheter seen, which decompresses the bladder. Asymmetric bladder wall thickening can be seen on the left side. Pelvic lymph nodes: No pelvic adenopathy by size criteria. Bones: No aggressive osseous abnormality. This patient has transitional anatomy. For the purposes of this examination, the level with the last pair of ribs is considered to be T12. By the summary scheme , the S1 level is transitional and is partially lumbarized. Focal L4-L5 and L5-S1 degenerative change can be seen. Other: No significant ventral or inguinal hernia. IMPRESSION: Bilateral hydronephrosis and hydroureter can be seen on both sides, left worse than right. A cause of obstruction is not seen. No nonobstructing kidney stones or ureteral stones can be seen. Asymmetric bladder wall thickening can be seen on the left side. Intraluminal hemorrhage is suspected . Hyperdensity with thickening seen involving the fundus of the gallbladder. Differential diagnosis inc ludes a polyp or focal adenomyomatosis. Differential diagnosis also includes stones and sludge as wel l as gallbladder wall thickening. Please consider a follow-up right upper quadrant ultrasound, if cli nically appropriate. Additional findings: Simple exophytic bilateral renal cysts Calcifications of the pancreas, presumably related to chronic pancreatitis Transitional lumbar anatomy Focal lower lumbar spine degenerative change Note: No significant discrepancy from the preliminary report. Reviewed by: Dean George MD on 04/03/2023 8:47 AM [facility] Approved by: Dean George MD on 04/03/2023 8:47 AM [facility] Station ID: [id number]
[2023-04-03 09:51] VITALS: BP 118/65
== END 2023-04-03 09:55 | disposition short-term general hospital (02) ==
LOC: EDUNIT# → ED 23:58
DX: R33.9 Retention of urine, unspecified (principal); R31.9 Hematuria, unspecified; D64.9 Anemia, unspecified; N30.90 Cystitis, unspecified without hematuria; N32.89 Other specified disorders of bladder; I10 Essential (primary) hypertension; E78.00 Pure hypercholesterolemia, unspecified; E11.9 Type 2 diabetes mellitus without complications; F17.200 Nicotine dependence, unspecified, uncomplicated; Z79.899 Other long term (current) drug therapy; Z79.82 Long term (current) use of aspirin; Z79.84 Long term (current) use of oral hypoglycemic drugs; Z79.4 Long term (current) use of insulin
CPT/HCPCS: 36415; 51703; 74176; 80053; 81001; 83690; 85025; 85610; 86850; 86900; 86901; 96365; 96375; 96376; 99285; J1170; J2060; 81003; 87086

== ENCOUNTER 2023-04-03 09:57 | Outpatient (CLI) | payer MEDICARE, MEDICAID | END 2023-04-03 09:58 | disposition short-term general hospital (02) | LOC: EMS 09:57 | PROVIDERS: ATTEND Emergency Medicine | DX: R33.9 Retention of urine, unspecified (principal); N30.91 Cystitis, unspecified with hematuria; D64.9 Anemia, unspecified; N32.89 Other specified disorders of bladder | CPT/HCPCS: A0425; A0428 ==

== ENCOUNTER 2023-05-23 14:26 | Outpatient (CLI) | payer MEDICARE, MEDICAID | END 2023-05-23 14:27 | disposition critical access hospital (66) | LOC: EMS 14:26 | DX: R07.81 Pleurodynia (principal) | CPT/HCPCS: A0425; A0427 ==

== ENCOUNTER 2023-05-23 14:49 | Inpatient (IN) | payer MEDICARE, MEDICAID ==
--- NOTE | 2023-05-23 15:00 | ED Physician Documentation ---
PD HPI CHEST PAIN - Stated complaint Stated Complaint: L SIDE RIB PX - History obtained from History obtained from: Patient, EMS - Additional information Additional information: 77-year-old gentleman who was seen by one of my partners in middle of March for decreased urination and found to have bilateral hydronephrosis and subsequently transferred to [facility] where diagnosis of bladder cancer was evidently made. We do not know the stage, and he has bilateral ureteral stents in place which he was scheduled to have removed by Dr. Fabian tomorrow. Overnight last night he states he rolled over in bed and developed excruciating left rib pain. There is no fall or specific sniffing and trauma. He has received 100 mcg of fentanyl en route without significant relief. On initial evaluation he is writhing in pain and screaming and as such history is somewhat limited due to lack of cooperation due to pain. PD PAST MEDICAL HISTORY - Past Medical History Cardiovascular: Hypertension, High cholesterol Respiratory: Other Endocrine/Autoimmune: Type 2 diabetes GI: Chronic constipation, Hemorrhoids : Kidney stones, Other HEENT: Chronic vision loss, Chronic hearing loss Psych: None Musculoskeletal: None Derm: None - Past Surgical History Past Surgical History: Yes General: Colonoscopy, Other - Present Medications Home Medications: Ambulatory Orders Medication Instructions Recorded Confirmed amLODIPine [Norvasc] 10 mg PO QPM 01/17/14 05/23/23 Aspirin [Aspir 81] 81 mg PO DAILY 02/20/15 05/23/23 Docusate Sodium 100 mg PO BID 02/20/15 05/23/23 Lisinopril 20 mg PO DAILY 02/20/15 05/23/23 Atorvastatin [Lipitor] 20 mg PO QPM 04/03/23 05/23/23 Insulin Glargine [Lantus Solostar] 41 units SUBQ HS 04/03/23 05/23/23 Ipratropium/Albuterol [Combivent 1 puffs INH Q6HR PRN 04/03/23 05/23/23 Respimat] Empagliflozin [Jardiance] 10 mg PO DAILY 05/18/23 05/23/23 guaiFENesin [Chest Congestion 400 mg PO DAILY 05/18/23 05/23/23 Relief] oxyBUTYnin chloride [Oxybutynin 5 mg PO HS PRN 05/23/23 05/23/23 Chloride] - Allergies Allergies/Adverse Reactions: Allergies Allergy/AdvReac Type Severity Reaction Status Date / Time Penicillins Allergy Severe Rash Verified 05/23/23 15:06 felisa Allergy throat Verified 05/23/23 15:06 swells passion fruit Allergy Unknown Verified 05/23/23 15:06 guava Allergy throat Uncoded 05/23/23 15:06 swells papaya Allergy throat Uncoded 05/23/23 15:06 swells - Social History Does the pt smoke?: Yes Smoking Status: Current every day smoker Does the pt drink ETOH?: No Does the pt have substance abuse?: No - Immunizations Immunizations are current?: Yes - POLST Patient has POLST: No PD ED PE NORMAL - Vitals Vital signs reviewed: Yes - General General: Other (He appears to be in significant pain and is screaming.) - Cardiac Cardiac: RRR, No murmur - Respiratory Respiratory: No respiratory distress, Clear bilaterally - Abdomen Abdomen: Normal bowel sounds, Soft, Other (Because of his inconsolability it is hard to figure out where exactly or if he is tender, he screams in pain with any palpation of his left side pretty much anywhere.) - Derm Derm: Normal color, Warm and dry - Extremities Extremities: No edema - Neuro Neuro: Alert and oriented X 3 Results - Vitals Vitals: Vital Signs - 24 hr 05/23/23 05/23/23 05/23/23 15:01 15:25 15:32 Temperature 36.7 C Heart Rate 76 82 Respiratory 18 12 Rate Blood Pressure 137/76 H 185/87 H O2 Saturation 100 75 L 100 If not protocol 10 : Oxygen Flow, liters/minute 05/23/23 16:32 Temperature 37.1 C Heart Rate 85 Respiratory 16 Rate Blood Pressure 165/80 H O2 Saturation 98 If not protocol 2 : Oxygen Flow, liters/minute Oxygen O2 Source Nasal cannula - EKG (time done) 1509 EKG releavant findings:: EKG personally interpreted by author of this note. Relevant findings are: Rate: Rate (enter#) (75) Rhythm: NSR [place]: Normal, LAD Intervals: Normal [place] QRS: Normal Ischemia: Non specific changes. No: ST elevation c/w ischemia, ST depression - Labs Labs: Laboratory Tests 05/23/23 05/23/23 05/23/23 15:06 15:06 16:31 WBC 16.2 H RBC 3.87 L Hgb 9.6 L Hct 30.9 L MCV 79.8 L MCH 24.8 L MCHC 31.1 L RDW 15.9 H Plt Count 481 H MPV 8.2 Neut # (Auto) 13.0 H Lymph # (Auto) 1.8 [place] # (Auto) 1.1 H Eos # (Auto) 0.1 Baso # (Auto) 0.1 Absolute Nucleated RBC 0.00 Nucleated RBC % 0.0 Sodium 132 L Potassium 4.7 H Chloride 101 Carbon Dioxide 22 Anion Gap 9.0 BUN 28 H Creatinine 1.3 Estimated GFR (MDRD) 53 L Glucose 295 H Calcium 9.2 Total Bilirubin 0.3 AST 9 L ALT 13 Alkaline Phosphatase 52 Total Protein 6.4 Albumin 3.1 L Globulin 3.3 Albumin/Globulin Ratio 0.9 L Urine Color YELLOW Urine Clarity SL. CLOUDY Urine pH 6.0 Ur Specific [place] 1.010 Urine Protein 30 H Urine Glucose (UA) >=1000 H Urine Ketones NEGATIVE Urine Occult Blood LARGE H Urine Nitrite NEGATIVE Urine Bilirubin NEGATIVE Urine Urobilinogen 0.2 (NORMAL) Ur Leukocyte Esterase NEGATIVE Ur Microscopic Review INDICATED Urine Culture Comments Not Reportable - Rads (name of study) CT of the chest demonstrates pulmonary metastatic disease with multiple nodules, the largest being right lower lobe, 3.9 cm and underlying hiatal ruperto Relevant Findings:: Final report received, EMP independent interpretation of test CT IVP- significant hydronephrosis despite ureteral stent with left-sided bladder mass Relevant Findings:: Final report received, EMP independent interpretation of test PD Medical Decision Making - ED course ED course: 77-year-old gentleman with recent diagnosis of bladder cancer and a left ureteral stent in place presents with intractable pain that is quite severe in the left side. He is writhing in pain on initial evaluation so hard to get a gauge in where the pain is or any useful exam. He had already received 100 mcg of fentanyl en route and this was followed here with 50 mg of ketamine and 1 mg of IM Dilaudid after which for a time he actually was apneic and required supplemental oxygen. He went over serial CT chest and IVP which unfortunately shows new widely spread metastatic disease especially in the lungs and possibly his spine and significant hydronephrosis on the left which is probably what is causing the pain. I discussed the case by phone with Dr. Fred Fabian, the urologist who is planning to take him to the OR tomorrow who recommends admission to medicine and n.p.o. after midnight and spoke with Dr. Perry for same at 5:17 PM. Diagnosis: 1. Metastatic bladder cancer 2. Left-sided hydronephrosis despite stent in place Departure - Departure Disposition: 66 [facility] DC/Xfer Condition: Stable
[2023-05-23 15:11] LABS: BASOPHILS # (AUTO) 0.1 10^3/uL (0.0-0.1); BASOPHILS % (AUTO) 0.3 %; EOSINOPHILS # (AUTO) 0.1 10^3/uL (0.0-0.7); EOSINOPHILS % (AUTO) 0.3 %; HCT - HEMATOCRIT 30.9 % (42.0-52.0); HGB - HEMOGLOBIN 9.6 g/dL (14.0-18.0); LYMPHOCYTES # (AUTO) 1.8 10^3/uL (1.5-3.5); LYMPHOCYTES % (AUTO) 11.3 %; MEAN CORPUSCULAR HEMOGLOBIN 24.8 pg (27.0-31.0); MEAN CORPUSCULAR HGB CONC 31.1 g/dL (32.0-36.0); MEAN CORPUSCULAR VOLUME 79.8 fL (80.0-94.0); MEAN PLATELET VOLUME 8.2 fL (7.4-11.4); MONOCYTES # (AUTO) 1.1 10^3/uL (0.0-1.0); MONOCYTES % (AUTO) 6.5 %; NEUTROPHILS % (AUTO) 80.4 %; PLT - PLATELET COUNT 481 10^3/uL (130-450); RED BLOOD COUNT 3.87 10^6/uL (4.70-6.10); RED CELL DISTRIBUTION WIDTH 15.9 % (12.0-15.0); WHITE BLOOD COUNT 16.2 x10^3/uL (4.8-10.8)
[2023-05-23] MEDS: KETAMINE 500 MG/10 ML VIAL IVP STA (15:13)
[2023-05-23] MEDS: SODIUM CHLORIDE 0.9% 1,000 ML IV STA (15:13)
[2023-05-23] MEDS: HYDROmorphone 1 MG/ML CARPUJECT IVP STA (15:14)
[2023-05-23 15:35] LABS: ALBUMIN 3.1 g/dL (3.2-5.5); ALBUMIN/GLOBULIN RATIO 0.9 (1.0-2.2); BILIRUBIN,TOTAL 0.3 mg/dL (0.2-1.0); CALCIUM 9.2 mg/dL (8.5-10.3); CREATININE 1.3 mg/dL (0.6-1.3); POTASSIUM 4.7 mmol/L (3.5-4.5); TOTAL PROTEIN 6.4 g/dL (6.4-8.9)
[2023-05-23] MEDS ORDERED: iohexoL-300 100 ML VIAL ONE (15:43)
[2023-05-23] MEDS: iohexoL-300 100 ML VIAL IVP ONE (16:34)
[2023-05-23 16:35] LABS: BILIRUBIN,URINE NEGATIVE (NEGATIVE); CLARITY,URINE SL. CLOUDY (CLEAR); GLUCOSE, URINE (UA) >=1000 mg/dL (NEGATIVE); KETONES,URINE (UA) NEGATIVE (NEGATIVE); LEUKOCYTE ESTERASE, URINE NEGATIVE (NEGATIVE); NITRITE,URINE NEGATIVE (NEGATIVE); OCCULT BLOOD,URINE LARGE (NEGATIVE); PROTEIN,URINE 30 mg/dL (NEGATIVE); UROBILINOGEN,URINE 0.2 (NORMAL) E.U./dL (NORMAL)
--- NOTE | 2023-05-23 16:48 | CT Report ---
PROCEDURE: Chest W INDICATIONS: Bladder CA/ L flank vs chest pain CONTRAST: 140ml omni 300 TECHNIQUE: After the administration of intravenous contrast, a CT scan of the chest was performed. Images were recorded and evaluated at appropriate window settings. Reformats: axial MIP of the chest, coronal and sagittal. For radiation dose reduction, the following was used: automated exposure control, adjustme nt of mA and/or kV according to patient size. COMPARISON: Correlation is made with the accompanying imaging. FINDINGS: Image quality: Diagnostic. Chest wall and lower neck: No thyroid nodule which requires sonographic follow up. No axillary or sup raclavicular adenopathy by size. Lungs and pleura: Numerous pulmonary nodules can be seen, which are worst inferiorly, with the larges t seen within the dependent right lower lobe measuring up to 3.9 cm. No superimposed infiltrate can be seen. No pneumothorax is seen. Underlying emphysematous changes are seen. Mediastinum: Heart size is normal. No pericardial effusion. No large vessel abnormality. No mediastin al adenopathy by size criteria. There is a small to moderate hiatal hernia. Bones: No aggressive osseous abnormality. There is accentuated thoracic kyphosis. Age-appropriate de generative changes are seen. Upper Abdomen: Please see the accompanying abdomen/pelvis CT report IMPRESSION: Pulmonary metastatic disease, with the largest focal nodule seen within the dependent right lower lob e measuring 3.9 cm. Underlying pulmonary emphysematous change can be seen. Additional findings: Small to moderate hiatal hernia Reviewed by: Dean George MD on 05/23/2023 3:46 PM [facility] Approved by: Dean George MD on 05/23/2023 3:46 PM [facility] Station ID: [id number]
--- NOTE | 2023-05-23 17:00 | CT Report ---
PROCEDURE: IVP INDICATIONS: Bladder CA/ L flank vs chest pain CONTRAST: 140ml omni 300 TECHNIQUE: A [address] of the abdomen and pelvis was performed. Non-contrast and contrast images were recorded and evaluated at appropriate window settings. Images were recorded and evaluated at appropriate windo w settings. Reformats: coronal and sagittal. For radiation dose reduction, the following was used: au tomated exposure control, adjustment of convex left scoliosis. 3 interval casting with improved align ment at the tibia and fibula fractures. MA and/or kV according to patient size. COMPARISON: 04/03/2023. Correlation is also made with the accompanying chest CT. FINDINGS: Image quality: Diagnostic. Urinary system: There is a left-sided ureteral stent seen in place. There is moderate left-sided hydr onephrosis and hydroureter, which are similar to the prior examination. Prominence of the right renal pelvis can be seen. There is a thickened, hyperenhancing left bladder wall measuring 2.5 cm in thickness. OTHER Lower chest: Pulmonary nodules can be seen at the lung bases, with largest measuring up to 3.9 cm. Th deborah nodules are clearly progressed compared to the recent prior CT dated 04/03/2023. Liver: No solid mass. Gallbladder and biliary tree: Generalized gallbladder wall thickening can be seen. No gallstone can b e seen. Spleen: No splenomegaly. Pancreas: No pancreatic ductal dilation. Adrenals: No adrenal nodule. Stomach, bowel and peritoneum: No bowel distension. No pathologic free fluid. Abdominal Lymph nodes: No central or retroperitoneal adenopathy. Vessels: Atherosclerotic calcification is seen. The IVC and aorta demonstrate normal caliber. Reproductive organs: Unremarkable. Pelvic Lymph nodes: Unremarkable. Bones: Potential lucent lesions are present, which are not well seen. At least moderate lumbar spine degenerative change can be seen. A subacute-appearing fracture can be seen at the superior endplate o f L2. This transitional lumbar anatomy, with a partially lumbarized L5 segment and a relatively well- developed disc space at S1-S2. Other: There is a mild fat-containing right inguinal hernia. IMPRESSION: Pulmonary nodules are seen, which are clearly worse than on the prior examination, which is consisten t with aggressive metastases. There is a left-sided ureteral stent in place. There is left-sided hydroureter and hydronephrosis, wh ich appears similar to the prior examination. Left-sided bladder neoplasm. Subacute appearing fracture of the superior endplate of L2. Potential lucent bony metastases. Additional findings: Transitional lumbar anatomy Fat-containing right inguinal hernia Reviewed by: Dean George MD on 05/23/2023 3:59 PM [place] Approved by: Dean George MD on 05/23/2023 3:59 PM [facility] Station ID: [id number]
[2023-05-23 17:13] LABS: WBC CLUMPS,URINE PRESENT
[2023-05-23 17:14] LABS: BACTERIA,URINE Few /HPF (None Seen); SQUAMOUS EPITHELIAL CELL,UR FEW Squamous (<= Few)
[2023-05-23 17:15] LABS: MUCUS,URINE Moderate Strands
[2023-05-23] MEDS: KETOROLAC 15 MG/ML VIAL IVP STA (17:49)
--- NOTE | 2023-05-23 17:50 | HISTORY & PHYSICAL EXAMINATION ---
Chief Complaint - Chief Complaint Chief Complaint: Pain History of Present Illness - Admitted From Admitted From:: Emergency Room - History Obtained From Records Reviewed: Yes History obtained from: Patient and Emergency Room physician Dr. Belcher - History of Present Illness HPI Comment/Other: Hugh Mcneil is a 77-year-old man with a past medical history significant for bladder cancer. He currently has bilateral ureteral stents in place and was scheduled to have them removed by urology in the morning. Overnight patient developed severe left-sided rib pain. He denies history of ground-level fall or trauma. A CT scan of the abdomen and pelvis was performed today and revealed multiple pulmonary nodules most consistent with metastasis. The left ureteral stent is in place and there is left-sided hydroureter and hydronephrosis that is similar to prior examination. CT scan demonstrates left-sided bladder neoplasm. There appears to be a fracture of the superior endplate of L2. In the emergency room he received some hydromorphone. When I interviewed the patient he is lying in bed and appears to be comfortable. He awakens to voice and states his current pain level is 4 out of 10. History - Past Medical History Cardiovascular: reports: Hypertension, High cholesterol Respiratory: reports: Other Endocrine/Autoimmune: reports: Type 2 diabetes GI: reports: Chronic constipation, Hemorrhoids : reports: Kidney stones, Other HEENT: reports: Chronic vision loss, Chronic hearing loss Psych: reports: None Musculoskeletal: reports: None Derm: reports: None MRSA Hx?: No Other Past Medical History: bladder cancer - Past Surgical History General: reports: Colonoscopy, Other - POLST Patient has POLST: No Meds/Allgy - Home Medications Home Medications: Ambulatory Orders Medication Instructions Recorded Confirmed amLODIPine [Norvasc] 10 mg PO QPM 01/17/14 05/23/23 Aspirin [Aspir 81] 81 mg PO DAILY 02/20/15 05/23/23 Docusate Sodium 100 mg PO BID 02/20/15 05/23/23 Lisinopril 20 mg PO DAILY 02/20/15 05/23/23 Atorvastatin [Lipitor] 20 mg PO QPM 04/03/23 05/23/23 Insulin Glargine [Lantus Solostar] 41 units SUBQ HS 04/03/23 05/23/23 Ipratropium/Albuterol [Combivent 1 puffs INH Q6HR PRN 04/03/23 05/23/23 Respimat] Empagliflozin [Jardiance] 10 mg PO DAILY 05/18/23 05/23/23 guaiFENesin [Chest Congestion 400 mg PO DAILY 05/18/23 05/23/23 Relief] oxyBUTYnin chloride [Oxybutynin 5 mg PO HS PRN 05/23/23 05/23/23 Chloride] - Allergies Allergies/Adverse Reactions: Allergies Allergy/AdvReac Type Severity Reaction Status Date / Time Penicillins Allergy Severe Rash Verified 05/23/23 15:06 felisa Allergy throat Verified 05/23/23 15:06 swells passion fruit Allergy Unknown Verified 05/23/23 15:06 guava Allergy throat Uncoded 05/23/23 15:06 swells papaya Allergy throat Uncoded 05/23/23 15:06 swells Review of Systems - Musculoskeletal Musculoskeletal: reports: Other Exam - Vital Signs Vital Signs: Vital Signs x48h Temp Pulse Resp BP Pulse Ox O2 Flow Rate 05/23/23 16:32 37.1 C 85 16 165/80 H 98 2 05/23/23 15:32 82 12 185/87 H 100 10 05/23/23 15:25 75 L 05/23/23 15:01 36.7 C 76 18 137/76 H 100 - Physical Exam General Appearance: positive: Alert, Mild distress Eyes Bilateral: positive: EOMI, No lid inflammation, Conjunctivae nml Neck: positive: Thyroid nml, No JVD, Trachea midline Respiratory: positive: Other (Good air exchange in all lung jacob no wheezing no crackles) Cardiovascular: positive: Other (Positive S1-S2 no extra heart sounds) Abdomen: positive: Non-tender, No organomegaly, Nml bowel sounds, No distention Skin: positive: Cyanosis Extremities: positive: No pedal edema Neurologic/Psychiatric: positive: Oriented x3 Conclusion/Plan - Problem List (1) Cancer related pain Conclusion/Plan: Patient complaining of pain from rib on left side. Etiology of pain is not clear but most likely is related to his underlying metastatic cancer. He is scheduled to have his stents removed in the morning. He currently is in severe pain and will be admitted to the medical floor for pain control. Plan: Hydromorphone 0.5 mg IV every 2 hours as needed for pain. Dose to be adjusted up or down as needed. (2) Hydronephrosis Plan: Patient is scheduled to undergo surgery in the morning with urology.He has hydronephrosis despite having a stent in place. N.p.o. after midnight. 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 Discuss goals of care and the patient does not want to undergo chest compressions, cardioversion or intubation in the event of a cardiopulmonary arrest. - Lab Results Fish Bones: 05/23/23 15:06 05/23/23 15:06
[2023-05-23] MEDS: INSULIN REGULAR HUMAN 300 UNIT/3 ML VIAL SUBQ SCH (18:42)
[2023-05-23] MEDS: SODIUM CHLORIDE 0.9% 1,000 ML IV SCH (18:43)
[2023-05-23] MEDS: HEPARIN 5,000 UNIT/ML VIAL SUBQ SCH (20:44)
[2023-05-23] MEDS: HYDROmorphone 0.5 MG/0.5 ML SYRINGE IVP PRN (22:21)
[2023-05-23] MEDS: SODIUM CHLORIDE FLUSH 0.9% 10 ML SYRINGE IVP PRN (22:22)
[2023-05-24] MEDS: SODIUM CHLORIDE FLUSH 0.9% 10 ML SYRINGE IVP SCH (01:53)
[2023-05-24 05:45] LABS: BASOPHILS % (AUTO) 0.3 %; EOSINOPHILS # (AUTO) 0.2 10^3/uL (0.0-0.7); EOSINOPHILS % (AUTO) 1.2 %; HCT - HEMATOCRIT 30.6 % (42.0-52.0); HGB - HEMOGLOBIN 9.3 g/dL (14.0-18.0); LYMPHOCYTES # (AUTO) 1.7 10^3/uL (1.5-3.5); LYMPHOCYTES % (AUTO) 12.5 %; MEAN CORPUSCULAR HEMOGLOBIN 24.5 pg (27.0-31.0); MEAN CORPUSCULAR HGB CONC 30.4 g/dL (32.0-36.0); MEAN CORPUSCULAR VOLUME 80.5 fL (80.0-94.0); MEAN PLATELET VOLUME 8.2 fL (7.4-11.4); MONOCYTES % (AUTO) 7.7 %; NEUTROPHILS # (AUTO) 10.4 10^3/uL (1.5-6.6); PLT - PLATELET COUNT 452 10^3/uL (130-450); RED CELL DISTRIBUTION WIDTH 16.1 % (12.0-15.0); WHITE BLOOD COUNT 13.5 x10^3/uL (4.8-10.8)
[2023-05-24 06:13] LABS: CALCIUM 8.9 mg/dL (8.5-10.3); CREATININE 1.1 mg/dL (0.6-1.3); MAGNESIUM 1.9 mg/dL (1.7-2.3); PHOSPHORUS 3.3 mg/dL (2.5-5.0); POTASSIUM 4.1 mmol/L (3.5-4.5)
[2023-05-24] MEDS ORDERED: ceFAZolin 2 GM VIAL ONE (07:20)
--- NOTE | 2023-05-24 09:01 | CONSULTATION NOTE ---
Referring Provider Name of Referring Provider:: Dr Belcher Consult Date: 05/23/23 Chief Complaint - Chief Complaint Chief Complaint: Left flank pain History of Present Illness - Admitted From Admitted From:: ER - History Obtained From Records Reviewed: HOWARD Valera History obtained from: Patient Exam Limitations: none - History of Present Illness HPI Comment/Other: Hugh is a 77-year-old male who is relatively well-known to me. He has history of diabetes and hypertension and a long history of smoking who had left flank pain and low urine output who presented to the hospital I would be when I was not available in mid March. He had gross hematuria and a CT scan showed left hydronephrosis and possible bladder mass. He was transferred to [facility] for further evaluation. There a CT IVP reconfirmed a large mass and he was taken to the OR for TURBT which showed a muscle invasive large bladder cancer obstructing his left ureter approximately 6 cm in size. A stent was placed at that time. He came to transfer care to md. He was advised to consider radical cystoprostatectomy after neoadjuvant chemotherapy. He however was not interested in this. He elected to pursue Tri modal therapy with a combination of aggressive TURBT, radiation oncology and chemotherapy. Unfortunately he canceled his medical oncology appointments which has delayed his care. He saw me a few weeks ago for plan to remove his stent in the office however he has de veloped a fossa navicularis stricture which prevented me from reaching his bladder in the office. Last night he presented to the hospital with acute left-sided flank pain that he thought was a broken rib though there was no mechanism to explain that. CT scan reperformed which showed he had persistent left hydronephrosis with a stent in place probably consistent with an obstructed ureteral stent. He also has new pulmonary metastasis up to 3.9 cm in size and new possible spinal mets. Overall this is concerning for an aggressive locally and metastatic invasive bladder cancer. Overnight his pain has been better controlled though he has intermittent pains. History - Past Medical History Cardiovascular: reports: Hypertension, High cholesterol Respiratory: reports: Other Endocrine/Autoimmune: reports: Type 2 diabetes GI: reports: Chronic constipation, Hemorrhoids : reports: Kidney stones, Other HEENT: reports: Chronic vision loss, Chronic hearing loss Psych: reports: None Musculoskeletal: reports: None Derm: reports: None MRSA Hx?: No Other Past Medical History: bladder cancer - Past Surgical History General: reports: Colonoscopy, Other - POLST Patient has POLST: No Meds/Allgy - Home Medications Home Medications: Ambulatory Orders Medication Instructions Recorded Confirmed Aspirin [Aspir 81] 81 mg PO DAILY 02/20/15 05/23/23 Docusate Sodium 100 mg PO BID 02/20/15 05/23/23 Lisinopril 20 mg PO DAILY 02/20/15 05/23/23 Atorvastatin [Lipitor] 20 mg PO QPM 04/03/23 05/23/23 Insulin Glargine [Lantus Solostar] 41 units SUBQ HS 04/03/23 05/23/23 Ipratropium/Albuterol [Combivent 1 puffs INH Q6HR PRN 04/03/23 05/23/23 Respimat] Empagliflozin [Jardiance] 10 mg PO DAILY 05/18/23 05/23/23 guaiFENesin [Chest Congestion 400 mg PO DAILY 05/18/23 05/23/23 Relief] oxyBUTYnin chloride [Oxybutynin 5 mg PO HS PRN 05/23/23 05/23/23 Chloride] Amlodipine Besylate [Norvasc] 10 mg PO DAILY 05/24/23 - Allergies Allergies/Adverse Reactions: Allergies Allergy/AdvReac Type Severity Reaction Status Date / Time Penicillins Allergy Severe Rash Verified 05/23/23 15:06 felisa Allergy throat Verified 05/23/23 15:06 swells passion fruit Allergy Unknown Verified 05/23/23 15:06 guava Allergy throat Uncoded 05/23/23 15:06 swells papaya Allergy throat Uncoded 05/23/23 15:06 swells Review of Systems - Gastrointestinal Gastrointestinal: reports: Abdominal pain - Genitourinary Genitourinary: reports: Frequency, Urgency - Neurological Neurological: reports: General weakness Exam - Vital Signs Reviewed Vital Signs: Yes Vital Signs: Vital Signs x48h Temp Pulse Resp BP Pulse Ox 05/24/23 08:00 37.0 C 70 20 127/59 L 94 - Physical Exam General Appearance: positive: Mild distress Respiratory: positive: Breath sounds nml Cardiovascular: positive: Regular rate & rhythm Conclusion and Plan - Lab Results Laboratory Results 05/24/23 07:52: POC Whole Bld Glucose 174 H 05/24/23 06:20: POC Whole Bld Glucose 163 H 05/24/23 05:30: Sodium 136, Potassium 4.1, Chloride 106, Carbon Dioxide 24, Anion Gap 6.0, BUN 21 H, Creatinine 1.1, Estimated GFR (MDRD) 65 L, Glucose 155 H, Calcium 8.9, Phosphorus 3.3, Magnesium 1.9 05/24/23 05:30: WBC 13.5 H, RBC 3.80 L, Hgb 9.3 L, Hct 30.6 L, MCV 80.5, MCH 24.5 L, MCHC 30.4 L, RDW 16.1 H, Plt Count 452 H, MPV 8.2, Neut # (Auto) 10.4 H, Lymph # (Auto) 1.7, [place] # (Auto) 1.0, Eos # (Auto) 0.2, Baso # (Auto) 0.0, Absolute Nucleated RBC 0.00, Nucleated RBC % 0.0 05/24/23 00:11: POC Whole Bld Glucose 256 H 05/23/23 20:37: POC Whole Bld Glucose 243 H 05/23/23 18:41: POC Whole Bld Glucose 198 H 05/23/23 16:31: Urine Color YELLOW, Urine Clarity SL. CLOUDY, Urine pH 6.0, Ur Specific Hines 1.010, Urine Protein 30 H, Urine Glucose (UA) >=1000 H, Urine Ketones NEGATIVE, Urine Occult Blood LARGE H, Urine Nitrite NEGATIVE, Urine Bilirubin NEGATIVE, Urine Urobilinogen 0.2 (NORMAL), Ur Leukocyte Esterase NEGATIVE, Urine RBC 6-10 H, Urine WBC 6-10 H, Urine WBC Clumps PRESENT, Ur Squamous Epith Cells FEW Squamous, Urine Bacteria Few, Urine Casts 0-2 WBC Casts, Urine Mucus Moderate Strands, Ur Microscopic Review INDICATED, Urine Culture Comments NOT INDICATED 05/23/23 15:06: Sodium 132 L, Potassium 4.7 H, Chloride 101, Carbon Dioxide 22, Anion Gap 9.0, BUN 28 H, Creatinine 1.3, Estimated GFR (MDRD) 53 L, Glucose 295 H, Calcium 9.2, Total Bilirubin 0.3, AST 9 L, ALT 13, Alkaline Phosphatase 52, Total Protein 6.4, Albumin 3.1 L, Globulin 3.3, Albumin/Globulin Ratio 0.9 L 05/23/23 15:06: WBC 16.2 H, RBC 3.87 L, Hgb 9.6 L, Hct 30.9 L, MCV 79.8 L, MCH 24.8 L, MCHC 31.1 L, RDW 15.9 H, Plt Count 481 H, MPV 8.2, Neut # (Auto) 13.0 H, Lymph # (Auto) 1.8, [place] # (Auto) 1.1 H, Eos # (Auto) 0.1, Baso # (Auto) 0.1, Absolute Nucleated RBC 0.00, Nucleated RBC % 0.0 - Diagnostic Imaging Results Diagnostic Imaging Results: positive: Read independently - Diagnosis Diagnosis: Left ureteral obstruction. Bladder cancer. Metastatic bladder cancer - Consultation Note Consultation Note: 77-year-old male with long smoking history with current at least [id number] bladder cancer which appears to be aggressive and metastatic disease occurred over the last 6 weeks, has left ureteral stent in place which is currently likely obstructed leading to acute flank pain. He takes aspirin daily. Admit to the hospital for pain control - Plan Plan: We discussed the patient's new diagnosis of metastatic bladder cancer. This is significantly concerning. I suspect he with a aggressive chemotherapy and/or immunotherapy he would have a guarded prognosis at best. I suspect he has perhaps 3 months to live. He is interested in minimizing his interventions at this point in time which I certainly can agree with. That being said he has acute left flank pain likely related to an obstructed ureteral stents due to this aggressive tumor growth. I recommend an intervention today. I recommend a cystoscopy, left ureteral stent exchange versus removal, possible TURBT, urethral dilation. We discussed the risk, benefits, alternatives of this. Specific risks of infection, bleeding (which is significantly increased as he is currently on aspirin), need for transfusions, continued pain, need for additional procedures, possible need for catheter afterwards, anesthesia risks such as heart attack or stroke were discussed. The patient is DNR The patient states understanding and consents to the above plan. I suspect he will need a evaluation by medical oncology and/or hospice acutely
--- NOTE | 2023-05-24 10:26 | PHARMACY PROGRESS NOTE ---
- Best Possible Medication History Admit Date and Time: 05/23/23 1736 Processed by: Pharmacy Medication History completed: Yes Patient Interview: Completed Secondary Source(s): Insurance records As the person ultimately responsible for medication therapy, providers are able to order a medication from an existing home medication list in [facility] via the "Reconcile Routine" prior to Confirmation of that medication by technical customer support specialist. Such practice is discouraged except when the physician, in their clinical judgment, deems that a medical need exists for a medication without regard to previous use.
[2023-05-24] MEDS ORDERED: LIDOCAINE 2% URO-JET 5 ML SYRINGE UR ONE (10:32)
--- NOTE | 2023-05-24 11:00 | ANESTHESIA ---
Pre-Anesthesia VS, & Labs - Diagnosis Diagnosis Left ureteral obstruction Bladder cancer Metastatic bladder cancer - Procedure cysto, urethral dilation Vital Signs: Temp Pulse Resp BP Pulse Ox O2 Flow Rate 37.0 C 70 20 127/59 L 94 2 05/24/23 08:00 05/24/23 08:00 05/24/23 08:00 05/24/23 08:00 05/24/23 08:00 05/23/23 18:34 Height: 5 ft 5 in Weight (kg): 83.5 kg Body Mass Index: 30.6 BMI Classification: Obese - NPO >8 hours - Lab Results Current Lab Results: Laboratory Tests 05/24/23 07:52: POC Whole Bld Glucose 174 H 05/24/23 06:20: POC Whole Bld Glucose 163 H 05/24/23 05:30: Sodium 136, Potassium 4.1, Chloride 106, Carbon Dioxide 24, Anion Gap 6.0, BUN 21 H, Creatinine 1.1, Estimated GFR (MDRD) 65 L, Glucose 155 H, Calcium 8.9, Phosphorus 3.3, Magnesium 1.9 05/24/23 05:30: WBC 13.5 H, RBC 3.80 L, Hgb 9.3 L, Hct 30.6 L, MCV 80.5, MCH 24 .5 L, MCHC 30.4 L, RDW 16.1 H, Plt Count 452 H, MPV 8.2, Neut # (Auto) 10.4 H, Lymph # (Auto) 1.7, [place] # (Auto) 1.0, Eos # (Auto) 0.2, Baso # (Auto) 0.0, Absolute Nucleated RBC 0.00, Nucleated RBC % 0.0 05/24/23 00:11: POC Whole Bld Glucose 256 H 05/23/23 20:37: POC Whole Bld Glucose 243 H 05/23/23 18:41: POC Whole Bld Glucose 198 H 05/23/23 15:06: Sodium 132 L, Potassium 4.7 H, Chloride 101, Carbon Dioxide 22, Anion Gap 9.0, BUN 28 H, Creatinine 1.3, Estimated GFR (MDRD) 53 L, Glucose 295 H, Calcium 9.2, Total Bilirubin 0.3, AST 9 L, ALT 13, Alkaline Phosphatase 52, Total Protein 6.4, Albumin 3.1 L, Globulin 3.3, Albumin/Globulin Ratio 0.9 L 05/23/23 15:06: WBC 16.2 H, RBC 3.87 L, Hgb 9.6 L, Hct 30.9 L, MCV 79.8 L, MCH 24.8 L, MCHC 31.1 L, RDW 15.9 H, Plt Count 481 H, MPV 8.2, Neut # (Auto) 13.0 H, Lymph # (Auto) 1.8, [place] # (Auto) 1.1 H, Eos # (Auto) 0.1, Baso # (Auto) 0.1, Absolute Nucleated RBC 0.00, Nucleated RBC % 0.0 Fish Bones: 05/24/23 05:30 05/24/23 05:30 Home Medications and Allergies Home Medications: Ambulatory Orders Amlodipine Besylate [Norvasc] 10 mg PO DAILY 05/24/23 Active Medications Hydromorphone HCl (Hydromorphone 0.5 Mg/0.5 Ml Syringe) 0.5 mg IVP Q2H PRN PRN Reason: Pain 8 to 10 Last Admin: 05/24/23 04:32 Dose: 0.5 mg Sodium Chloride (Normal Saline 0.9%) 1,000 mls @ 83.333 mls/hr IV .Q12H [facility] Last Admin: 05/24/23 06:29 Dose: 83.333 mls/hr Insulin Human Regular (Insulin Regular Human 300 Unit/3 Ml Vial) 1 - 5 unit SUBQ Q6HR [facility]; Protocol Last Admin: 05/24/23 06:24 Dose: 1 unit Sodium Chloride (Sodium Chloride Flush 0.9% 10 Ml Syringe) 10 ml IVP PRN PRN PRN Reason: NEEDED PER PROVIDER ORDERS Last Admin: 05/23/23 22:22 Dose: 10 ml Sodium Chloride (Sodium Chloride Flush 0.9% 10 Ml Syringe) 10 ml IVP 0100,0900,1700 [facility] Last Admin: 05/24/23 01:53 Dose: Not Given Aspirin [Aspir 81] 81 mg PO DAILY 02/20/15 Docusate Sodium 100 mg PO BID 02/20/15 Lisinopril 20 mg PO DAILY 02/20/15 Atorvastatin [Lipitor] 20 mg PO QPM 04/03/23 Insulin Glargine [Lantus Solostar] 41 units SUBQ HS 12/16/23 Ipratropium/Albuterol [Combivent Respimat] 1 puffs INH Q6HR PRN 04/03/23 Empagliflozin [Jardiance] 10 mg PO DAILY 05/18/23 guaiFENesin [Chest Congestion Relief] 400 mg PO DAILY 05/18/23 Amlodipine Besylate [Norvasc] 10 mg PO DAILY 05/24/23 Allergies/Adverse Reactions: Allergies Allergy/AdvReac Type Severity Reaction Status Date / Time Penicillins Allergy Severe Rash Verified 05/23/23 15:06 felisa Allergy throat Verified 05/23/23 15:06 swells passion fruit Allergy Unknown Verified 05/23/23 15:06 guava Allergy throat Uncoded 05/23/23 15:06 swells papaya Allergy throat Uncoded 05/23/23 15:06 swells Anes History & Medical History - Anesthetic History Anesthesia Complications: reports: No previous complications Family history of Anesthesia Complications: Denies Family history of Malignant Hyperthermia: Denies - Medical History Cardiovascular: reports: Hypertension, High cholesterol Pulmonary: reports: Other Gastrointestinal: reports: Chronic constipation, Hemorrhoids Urinary: reports: Kidney stones, Other Musculoskeletal: reports: None Endocrine/Autoimmune: reports: Type 2 diabetes Skin: reports: None Smoking Status: Current every day smoker Psychosocial: reports: No issues indicated History of Cancer?: Yes Other Past Medical History: bladder cancer - Surgical History General: reports: Colonoscopy, Other Urologic: reports: Bladder surgery Exam General: Alert, Oriented x3, Cooperative Dental: WNL Mouth Openin Fingerbreadth Neck Mobility: Normal Mallampati classification: II Thyromental Distance: 4-6 cm Respiratory: Lungs clear Cardiovascular: Regular rate Plan Anesthesia Type: General Consent for Procedure(s) Verified and Reviewed: Yes Code Status: Attempt Resuscitation ASA classification: 4-Incapacitating disease Is this case an emergency?: No
--- NOTE | 2023-05-24 11:02 | ANESTHESIA ---
Pre-Anesthesia VS, & Labs - Diagnosis Diagnosis Left ureteral obstruction Bladder cancer Metastatic bladder cancer - Procedure stent removal, exchange, cystoscopy Vital Signs: Temp Pulse Resp BP Pulse Ox O2 Flow Rate 37.0 C 70 20 127/59 L 94 2 05/24/23 08:00 05/24/23 08:00 05/24/23 08:00 05/24/23 08:00 05/24/23 08:00 05/23/23 18:34 Height: 5 ft 5 in Weight (kg): 83.5 kg Body Mass Index: 30.6 BMI Classification: Obese - NPO >8 hours - Lab Results Current Lab Results: Laboratory Tests 05/24/23 07:52: POC Whole Bld Glucose 174 H 05/24/23 06:20: POC Whole Bld Glucose 163 H 05/24/23 05:30: Sodium 136, Potassium 4.1, Chloride 106, Carbon Dioxide 24, Anion Gap 6.0, BUN 21 H, Creatinine 1.1, Estimated GFR (MDRD) 65 L, Glucose 155 H, Calcium 8.9, Phosphorus 3.3, Magnesium 1.9 05/24/23 05:30: WBC 13.5 H, RBC 3.80 L, Hgb 9.3 L, Hct 30.6 L, MCV 80.5, MCH 24.5 L, MCHC 30.4 L, RDW 16.1 H, Plt Count 452 H, MPV 8.2, Neut # (Auto) 10.4 H, Lymph # (Auto) 1.7, [place] # (Auto) 1.0, Eos # (Auto) 0.2, Baso # (Auto) 0.0, Absolute Nucleated RBC 0.00, Nucleated RBC % 0.0 05/24/23 00:11: POC Whole Bld Glucose 256 H 05/23/23 20:37: POC Whole Bld Glucose 243 H 05/23/23 18:41: POC Whole Bld Glucose 198 H 05/23/23 15:06: Sodium 132 L, Potassium 4.7 H, Chloride 101, Carbon Dioxide 22, Anion Gap 9.0, BUN 28 H, Creatinine 1.3, Estimated GFR (MDRD) 53 L, Glucose 295 H, Calcium 9.2, Total Bilirubin 0.3, AST 9 L, ALT 13, Alkaline Phosphatase 52, Total Protein 6.4, Albumin 3.1 L, Globulin 3.3, Albumin/Globulin Ratio 0.9 L 05/23/23 15:06: WBC 16.2 H, RBC 3.87 L, Hgb 9.6 L, Hct 30.9 L, MCV 79.8 L, MCH 24.8 L, MCHC 31.1 L, RDW 15.9 H, Plt Count 481 H, MPV 8.2, Neut # (Auto) 13.0 H, Lymph # (Auto) 1.8, [place] # (Auto) 1.1 H, Eos # (Auto) 0.1, Baso # (Auto) 0.1, Absolute Nucleated RBC 0.00, Nucleated RBC % 0.0 Lab results reviewed: Yes Fish Bones: 05/24/23 05:30 05/24/23 05:30 Home Medications and Allergies Home Medications: Ambulatory Orders Amlodipine Besylate [Norvasc] 10 mg PO DAILY 05/24/23 Active Medications Hydromorphone HCl (Hydromorphone 0.5 Mg/0.5 Ml Syringe) 0.5 mg IVP Q2H PRN PRN Reason: Pain 8 to 10 Last Admin: 05/24/23 04:32 Dose: 0.5 mg Sodium Chloride (Normal Saline 0.9%) 1,000 mls @ 83.333 mls/hr IV .Q12H [facility] Last Admin: 05/24/23 06:29 Dose: 83.333 mls/hr Insulin Human Regular (Insulin Regular Human 300 Unit/3 Ml Vial) 1 - 5 unit S UBQ Q6HR [facility]; Protocol Last Admin: 05/24/23 06:24 Dose: 1 unit Sodium Chloride (Sodium Chloride Flush 0.9% 10 Ml Syringe) 10 ml IVP PRN PRN PRN Reason: NEEDED PER PROVIDER ORDERS Last Admin: 05/23/23 22:22 Dose: 10 ml Sodium Chloride (Sodium Chloride Flush 0.9% 10 Ml Syringe) 10 ml IVP 0100,0900,1700 [facility] Last Admin: 05/24/23 01:53 Dose: Not Given Aspirin [Aspir 81] 81 mg PO DAILY 02/20/15 Docusate Sodium 100 mg PO BID 02/20/15 Lisinopril 20 mg PO DAILY 02/20/15 Atorvastatin [Lipitor] 20 mg PO QPM 04/03/23 Insulin Glargine [Lantus Solostar] 41 units SUBQ HS 04/03/23 Ipratropium/Albuterol [Combivent Respimat] 1 puffs INH Q6HR PRN 04/03/23 Empagliflozin [Jardiance] 10 mg PO DAILY 05/18/23 guaiFENesin [Chest Congestion Relief] 400 mg PO DAILY 05/18/23 Amlodipine Besylate [Norvasc] 10 mg PO DAILY 05/24/23 Allergies/Adverse Reactions: Allergies Allergy/AdvReac Type Severity Reaction Status Date / Time Penicillins Allergy Severe Rash Verified 05/23/23 15:06 felisa Allergy throat Verified 05/23/23 15:06 swells passion fruit Allergy Unknown Verified 05/23/23 15:06 guava Allergy throat Uncoded 05/23/23 15:06 swells papaya Allergy throat Uncoded 05/23/23 15:06 swells Anes History & Medical History - Anesthetic History Anesthesia Complications: reports: No previous complications Family history of Anesthesia Complications: Denies Family history of Malignant Hyperthermia: Denies - Medical History Cardiovascular: reports: Hypertension, High cholesterol Pulmonary: reports: Other Gastrointestinal: reports: Chronic constipation, Hemorrhoids Urinary: reports: Kidney stones, Other Musculoskeletal: reports: None Endocrine/Autoimmune: reports: Type 2 diabetes Skin: reports: None Smoking Status: Current every day smoker Other Past Medical History: bladder cancer - Surgical History General: reports: Colonoscopy, Other Urologic: reports: Bladder surgery Exam General: Alert, Oriented x3, Cooperative, Mild distress Dental: Poor dentition Mouth Openin Fingerbreadth (alicea) Neck Mobility: Normal Mallampati classification: III Thyromental Distance: 4-6 cm Respiratory: Lungs clear, Normal breath sounds, No respiratory distress Cardiovascular: Regular rate (states he has PVCs regularly, non ascultated) Neurological: Normal speech Mental/Cognitive Status: Alert/Oriented X3, Normal for patient, Alert Cognitive Status: Within normal limits Plan Anesthesia Type: General Consent for Procedure(s) Verified and Reviewed: Yes Code Status: Attempt Resuscitation ASA classification: 3-Severe systemic disease Is this case an emergency?: No
[2023-05-24] MEDS ORDERED: ATROPINE ABBOJECT 1 MG/10 ML SYRINGE IVP PRN (11:06)
[2023-05-24] MEDS ORDERED: iohexoL-240 10 ML VIAL IVP ONE (11:06)
[2023-05-24] MEDS ORDERED: NALOXONE 0.4 MG/ML VIAL IVP PRN (11:06)
[2023-05-24] MEDS ORDERED: ONDANSETRON 4 MG/2 ML VIAL IVP PRN (11:06)
[2023-05-24] MEDS: LIDOCAINE 2% URO-JET 5 ML SYRINGE UR ONE (11:06)
[2023-05-24] MEDS ORDERED: fentaNYL 100 MCG/2 ML VIAL IVP PRN (11:06)
[2023-05-24] MEDS ORDERED: ePHEDrine 50 MG/ML VIAL IVP PRN (11:06)
[2023-05-24] MEDS ORDERED: MORPHINE 2 MG/ML CARPUJECT IVP PRN (11:06)
[2023-05-24] MEDS ORDERED: METOCLOPRAMIDE 10 MG/2 ML VIAL IVP PRN (11:06)
[2023-05-24] MEDS ORDERED: MIDAZOLAM 2 MG/2 ML VIAL ONE (11:24)
[2023-05-24] MEDS ORDERED: LIDOCAINE-PF 2% 10 ML AMP SUBQ ONE (11:27)
[2023-05-24] MEDS ORDERED: PROPOFOL 200 MG/20 ML VIAL IVP ONE (11:27)
[2023-05-24] MEDS ORDERED: fentaNYL 100 MCG/2 ML VIAL ONE (11:29)
[2023-05-24] MEDS ORDERED: LACTATED RINGERS 1,000 ML IV SCH (12:00)
[2023-05-24] MEDS: LACTATED RINGERS 1,000 ML IV ONE ×2 (12:11→12:39)
[2023-05-24] MEDS ORDERED: HYDROmorphone 0.5 MG/0.5 ML SYRINGE ONE ×2 (12:19→12:27)
[2023-05-24] MEDS: HYDROmorphone 0.5 MG/0.5 ML SYRINGE IVP PRN (12:22)
--- NOTE | 2023-05-24 12:45 | ANESTHESIA POST OP EVALUATION ---
Anesthesia Post Eval - Post Anesthesia Eval Vitals: Last Vital Signs Temp 36.3 C L 05/24/23 12:34 Pulse 76 05/24/23 12:34 Resp 21 05/24/23 12:34 BP 149/77 H 05/24/23 12:34 Pulse Ox 97 05/24/23 12:34 O2 Flow Rate 2 05/23/23 18:34 CV Function Including HR & BP: Stable Pain Control: Satisfactory Nausea & Vomiting: Negative Mental Status: Baseline Respiratory Status: Airway Patent Hydration Status: Satisfactory Anesthesia Complications: None
--- NOTE | 2023-05-24 14:29 | OPERATIVE REPORT ---
Operative Report - General Admit Date: 05/23/23 Procedure Date: 05/24/23 Planned Procedure: Cystoscopy, urethral dilation, possible TURBT, left stent exchange versus removal Pre-Op Diagnosis: Bladder cancer, urethral strictures, left ureteral obstruction Procedure Performed: Cystoscopy, urethral dilation, left ureteral stent exchange, complex Herbert placement Post Op Diagnosis: Bladder cancer, urethral strictures, left ureteral obstruction - Procedure Note Primary Surgeon: Rui Anesthesia Provider: JUWAN Jones Anesthesia Technique: General LMA Estimated Blood Loss (mL): 5 Findings: Fossa navicularis stricture dilated to 28 [place]. Bulbar urethral stricture 5 [place] in diameter and thin, dilated with cystoscope 22 [place] Left ureteral stent emanating from large left bladder mass Stent exchanged 20f [place] tip catheter placed over wire Complications: none - Other Other Information/Narrative: After informed consent was obtained and the patient was brought to the OR and laid in the supine position. He was then anesthetized per anesthesia protocols and placed in the dorsolithotomy position and prepped and draped in the usual sterile fashion. A formal timeout was performed reconfirming the patient, procedure and laterality. A sensor wire was gently placed per meatus into his urethra. A series of urethral dilators were then placed from 8 [place] to 28 [place]. A 22 [place] cystoscope was then advanced into his urethra and we could see that he had a bulbar urethral stricture as well which was about 5 [place] in diameter and thin. A sensor wire was placed past this and then the cystoscope which was 22 [place] was advanced over the wire to disrupt this stricture and placed into the bladder. The bladder showed a large healing prior resection site on the left side of the bladder. This appeared to be most of the left side of the bladder. There was no active bleeding but there was a lot of cheesy debris. Stent was seen emanating from this mass. The stent was grasped and brought to the urethral meatus. A sensor wire was placed over this into the kidney. Using a 22 [place] cystoscope a new 6 [place] 28 cm ureteral stent was placed with good curling noted in the kidney and good curling noted in the bladder. There was immediate drainage of some cloudy appearing effluent through the stent. We elected not to pursue any further resection of his bladder cancer as he has metastatic disease, and he is on aspirin. Over a sensor wire a 20 [place] tip catheter was placed into the bladder. 20 cc was placed in the balloon This concluded the procedure and the patient tolerated the procedure well. All counts were correct. He was brought to the PACU without further incident. He will return to medical service for further care. He will likely require a palliative care consult. I recommend stopping his aspirin as well in case he does require a surgical intervention in the future. The Herbert catheter should remain in place until morning where it can be removed.
--- NOTE | 2023-05-24 16:31 | XRAY Report ---
PROCEDURE: OR C-Arm Procedure INDICATIONS: STENT REPLACEMENT FLUORO TIME: 0.3 minutes TECHNIQUE: Intraoperative fluoroscopic views COMPARISON: None. FINDINGS: 4 intraoperative fluoroscopic views demonstrate a partially visualized left ureteral stent. IMPRESSION: Intraoperative fluoroscopic views as above. Please see separately dictated intraoperative report for full details. Reviewed by: Shima Pizano MD on 05/24/2023 4:29 PM PST Approved by: Shima Pizano MD on 05/24/2023 4:29 PM PST Station ID: [id number]
[2023-05-24] MEDS: INSULIN LISPRO 300 UNIT/3 ML PEN SUBQ SCH (16:50)
[2023-05-24 20:13] LABS: ESTIMATED AVERAGE GLUCOSE 166 mg/dL (70-100); HEMOGLOBIN A1c% 7.4 % (4.27-6.07)
--- NOTE | 2023-05-24 23:02 | PROVIDER PROGRESS NOTE ---
Assessment/Plan - Problem List (1) Cancer related pain Assessment/Plan: (1) Cancer related pain Conclusion/Plan: Patient complaining of pain from rib on left side. Etiology of pain is not clear but most likely is related to his underlying metastatic cancer. He is scheduled to have his stents removed in the morning. He currently is in severe pain and will be admitted to the medical floor for pain control. Plan: Hydromorphone 0.5 mg IV every 2 hours as needed for pain. Dose to be adjusted up or down as needed. (2) Hydronephrosis Plan: Patient is scheduled to undergo surgery in the morning with urology.He has hydronephrosis despite having a stent in place. Patient underwent a cystoscopy, urethral dilation, left ureteral stent exchange and complex Herbert placement. 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 Discuss goals of care and the patient does not want to undergo chest compressions, cardioversion or intubation in the event of a cardiopulmonary arrest. He does not wish to undergo some type of palliative treatment for his cancer. - Current Meds Current Meds: Current Medications Generic Name Dose Route Start Last Admin Trade Name Freq PRN Reason Stop Dose Admin Hydromorphone HCl 0.5 mg 05/23/23 17:35 05/24/23 21:33 Hydromorphone 0.5 Mg/0.5 Ml Syringe IVP 0.5 mg Q2H PRN Administration Pain 8 to 10 Sodium Chloride 1,000 mls @ 83.333 mls/hr 05/23/23 19:00 05/24/23 13:29 Normal Saline 0.9% IV 83.333 mls/hr .Q12H DK Administration Insulin Human Lispro 1 - 5 unit 05/24/23 17:00 05/24/23 20:52 Insulin Lispro 300 Unit/3 Ml Pen SUBQ 1 unit 0800,1200,1700,2100 DK Administration Protocol Sodium Chloride 10 ml 05/23/23 17:35 05/23/23 22:22 Sodium Chloride Flush 0.9% 10 Ml Syringe IVP 10 ml PRN PRN Administration NEEDED PER PROVIDER ORDERS Sodium Chloride 10 ml 05/24/23 01:00 05/24/23 16:47 Sodium Chloride Flush 0.9% 10 Ml Syringe IVP Not Given 0100,0900,1700 DK - Lab Result Fish Bone Diagrams: 05/24/23 05:30 05/24/23 05:30 - Additional Planning My Orders: My Active Orders 05/24/23 01:00 Sodium Chloride Flush 0.9% [Normal Saline Flush 0.9%] 10 ml IVP 0100,0900,1700 05/24/23 17:00 Insulin Lispro [Humalog Kwikpen U-100] 1 - 5 unit SUBQ 0800,1200,1700,2100 05/25/23 05:00 CBC [CBC - COMP BLD CT W/AUTO DIFF] [HEME] DAILYLAB 05/26/23 05:00 CBC [CBC - COMP BLD CT W/AUTO DIFF] [HEME] DAILYLAB 05/27/23 05:00 CBC [CBC - COMP BLD CT W/AUTO DIFF] [HEME] DAILYLAB 05/28/23 05:00 CBC [CBC - COMP BLD CT W/AUTO DIFF] [HEME] DAILYLAB Subjective - Subjective Patient Reports: Other (Alert and oriented to person time place and situation.He continues to have intermittent bouts of pain.) Objective Vital Signs: Vital Signs - 24 hr 05/24/23 05/24/23 05/24/23 00:07 08:00 12:06 Temperature 36.9 C 37.0 C 36.8 C Heart Rate 80 Heart Rate [ 70 70 Monitoring electrodes] Respiratory 20 20 18 Rate Blood Pressure 149/70 H Blood Pressure 128/66 127/59 L [Right Brachial artery] O2 Saturation 93 94 100 If not protocol : Oxygen Flow, liters/minute 05/24/23 05/24/23 05/24/23 12:11 12:23 12:29 Temperature 36.5 C 36.4 C L Heart Rate 80 80 80 Heart Rate [ Monitoring electrodes] Respiratory 21 23 18 Rate Blood Pressure 110/93 H 145/72 H 145/72 H Blood Pressure [Right Brachial artery] O2 Saturation 93 89 L 94 If not protocol : Oxygen Flow, liters/minute 05/24/23 05/24/23 05/24/23 12:34 12:57 13:27 Temperature 36.3 C L 36.9 C 37.1 C Heart Rate 76 Heart Rate [ 94 94 Monitoring electrodes] Respiratory 21 18 18 Rate Blood Pressure 149/77 H Blood Pressure 167/87 H 132/65 H [Right Brachial artery] O2 Saturation 97 90 L 92 If not protocol 3 3 : Oxygen Flow, liters/minute 05/24/23 05/24/23 05/24/23 14:27 14:53 15:27 Temperature 37.2 C 36.8 C Heart Rate Heart Rate [ 95 94 Monitoring electrodes] Respiratory 18 20 Rate Blood Pressure Blood Pressure 121/61 126/65 [Right Brachial artery] O2 Saturation 93 92 89 L If not protocol 3 : Oxygen Flow, liters/minute 05/24/23 19:19 Temperature 37.4 C Heart Rate Heart Rate [ 79 Monitoring electrodes] Respiratory 16 Rate Blood Pressure Blood Pressure 141/70 H [Right Brachial artery] O2 Saturation 94 If not protocol 1 : Oxygen Flow, liters/minute Oxygen O2 Source Nasal cannula I&O (Last 24 Hrs): Intake and Output Totals x24h 05/22/23 05/23/23 05/24/23 23:59 23:59 23:59 Intake Total 1350 1603.883 Output Total 300 765 Balance 1050 838.883 General: Alert, Oriented x3, Mild distress HEENT: Atraumatic Neck: Supple, No JVD, No thyromegaly Neuro: Alert, Non Focal Cardiovascular: Regular rate, Normal S1, Normal S2, No murmurs Respiratory: Chest non-tender, No respiratory distress, Breath sounds nml Abdomen: Normal bowel sounds, Soft, No tenderness Extremities: No cyanosis, No edema Skin: No rashes - Results Results: Laboratory Results WBC 13.5 x10^3/uL (4.8-10.8) H 05/24/23 05:30 RBC 3.80 10^6/uL (4.70-6.10) L 05/24/23 05:30 Hgb 9.3 g/dL (14.0-18.0) L 05/24/23 05:30 Hct 30.6 % (42.0-52.0) L 05/24/23 05:30 MCV 80.5 fL (80.0-94.0) 05/24/23 05:30 MCH 24.5 pg (27.0-31.0) L 05/24/23 05:30 MCHC 30.4 g/dL (32.0-36.0) L 05/24/23 05:30 RDW 16.1 % (12.0-15.0) H 05/24/23 05:30 Plt Count 452 10^3/uL (130-450) H 05/24/23 05:30 MPV 8.2 fL (7.4-11.4) 05/24/23 05:30 Neut # (Auto) 10.4 10^3/uL (1.5-6.6) H 05/24/23 05:30 Lymph # (Auto) 1.7 10^3/uL (1.5-3.5) 05/24/23 05:30 [place] # (Auto) 1.0 10^3/uL (0.0-1.0) 05/24/23 05:30 Eos # (Auto) 0.2 10^3/uL (0.0-0.7) 05/24/23 05:30 Baso # (Auto) 0.0 10^3/uL (0.0-0.1) 05/24/23 05:30 Absolute Nucleated RBC 0.00 x10^3/uL 05/24/23 05:30 Nucleated RBC % 0.0 /100WBC 05/24/23 05:30 Sodium 136 mmol/L (135-145) 05/24/23 05:30 Potassium 4.1 mmol/L (3.5-4.5) 05/24/23 05:30 Chloride 106 mmol/L (101-111) 05/24/23 05:30 Carbon Dioxide 24 mmol/L (21-32) 05/24/23 05:30 Anion Gap 6.0 (6-13) 05/24/23 05:30 BUN 21 mg/dL (6-20) H 05/24/23 05:30 Creatinine 1.1 mg/dL (0.6-1.3) 05/24/23 05:30 Estimated GFR (MDRD) 65 (>89) L 05/24/23 05:30 Glucose 155 mg/dL (74-104) H 05/24/23 05:30 POC Whole Bld Glucose 174 mg/dL (70 - 100) H 05/24/23 20:36 Estimat Average Glucose 166 mg/dL (70-100) H 05/24/23 05:30 Hemoglobin A1c % 7.4 % (4.27-6.07) H 05/24/23 05:30 Calcium 8.9 mg/dL (8.5-10.3) 05/24/23 05:30 Phosphorus 3.3 mg/dL (2.5-5.0) 05/24/23 05:30 Magnesium 1.9 mg/dL (1.7-2.3) 05/24/23 05:30 Total Bilirubin 0.3 mg/dL (0.2-1.0) 05/23/23 15:06 AST 9 IU/L (10-42) L 05/23/23 15:06 ALT 13 IU/L (10-60) 05/23/23 15:06 Alkaline Phosphatase 52 IU/L (42-121) 05/23/23 15:06 Total Protein 6.4 g/dL (6.4-8.9) 05/23/23 15:06 Albumin 3.1 g/dL (3.2-5.5) L 05/23/23 15:06 Globulin 3.3 g/dL (2.1-4.2) 05/23/23 15:06 Albumin/Globulin Ratio 0.9 (1.0-2.2) L 05/23/23 15:06 Urine Color YELLOW 05/23/23 16:31 Urine Clarity SL. CLOUDY (CLEAR) 05/23/23 16:31 Urine pH 6.0 PH (5.0-7.5) 05/23/23 16:31 Ur Specific [place] 1.010 (1.002-1.030) 05/23/23 16:31 Urine Protein 30 mg/dL (NEGATIVE) H 05/23/23 16:31 Urine Glucose (UA) >=1000 mg/dL (NEGATIVE) H 05/23/23 16:31 Urine Ketones NEGATIVE mg/dL (NEGATIVE) 05/23/23 16:31 Urine Occult Blood LARGE (NEGATIVE) H 05/23/23 16:31 Urine Nitrite NEGATIVE (NEGATIVE) 05/23/23 16:31 Urine Bilirubin NEGATIVE (NEGATIVE) 05/23/23 16:31 Urine Urobilinogen 0.2 (NORMAL) E.U./dL (NORMAL) 05/23/23 16:31 Ur Leukocyte Esterase NEGATIVE (NEGATIVE) 05/23/23 16:31 Urine RBC 6-10 /HPF (0-5) H 05/23/23 16:31 Urine WBC 6-10 /HPF (0-3) H 05/23/23 16:31 Urine WBC Clumps PRESENT 05/23/23 16:31 Ur Squamous Epith Cells FEW Squamous (<= Few) 05/23/23 16:31 Urine Bacteria Few /HPF (None Seen) 05/23/23 16:31 Urine Casts 0-2 Hyaline Casts /LPF0-2 WBC Casts /LPF 05/23/23 16:31 Urine Casts 0-2 Hyaline Casts /LPF0-2 WBC Casts /LPF 05/23/23 16:31 Urine Mucus Moderate Strands 05/23/23 16:31 Ur Microscopic Review INDICATED 05/23/23 16:31 Urine Culture Comments NOT INDICATED 05/23/23 16:31 - Procedures Procedures: Procedures CLOSED ENDOSCOPIC BIOPSY OF LARGE INTESTINE (01/18/14) ENDOSC POLYPECTOMY OF LG INTEST (01/18/14) ENDOSCOPIC BIOPSY OF RECTUM (01/18/14) OTH & OPEN REPAIR INDIRECT INGUINAL HERNIA W GRFT OR PROSTH (04/15/13) Current Medications - Current Medications Current Medications: Active Medications Hydromorphone HCl (Hydromorphone 0.5 Mg/0.5 Ml Syringe) 0.5 mg IVP Q2H PRN PRN Reason: Pain 8 to 10 Last Admin: 05/24/23 21:33 Dose: 0.5 mg Sodium Chloride (Normal Saline 0.9%) 1,000 mls @ 83.333 mls/hr IV .Q12H DK Last Admin: 05/24/23 13:29 Dose: 83.333 mls/hr Insulin Human Lispro (Insulin Lispro 300 Unit/3 Ml Pen) 1 - 5 unit SUBQ 0800,1200,1700,2100 DK; Protocol Last Admin: 05/24/23 20:52 Dose: 1 unit Sodium Chloride (Sodium Chloride Flush 0.9% 10 Ml Syringe) 10 ml IVP PRN PRN PRN Reason: NEEDED PER PROVIDER ORDERS Last Admin: 05/23/23 22:22 Dose: 10 ml Sodium Chloride (Sodium Chloride Flush 0.9% 10 Ml Syringe) 10 ml IVP 0100,0900,1700 DK Last Admin: 05/24/23 16:47 Dose: Not Given Aspirin [Aspir 81] 81 mg PO DAILY 02/20/15 Docusate Sodium 100 mg PO BID 02/20/15 Lisinopril 20 mg PO DAILY 02/20/15 Atorvastatin [Lipitor] 20 mg PO QPM 04/03/23 Insulin Glargine [Lantus Solostar] 41 units SUBQ HS 04/03/23 Ipratropium/Albuterol [Combivent Respimat] 1 puffs INH Q6HR PRN 04/03/23 Empagliflozin [Jardiance] 10 mg PO DAILY 05/18/23 guaiFENesin [Chest Congestion Relief] 400 mg PO DAILY 05/18/23 Amlodipine Besylate [Norvasc] 10 mg PO DAILY 05/24/23
[2023-05-25] MEDS: guaiFENesin 600 MG TABLET PO PRN (05:41)
[2023-05-25 06:20] LABS: BASOPHILS # (AUTO) 0.1 10^3/uL (0.0-0.1); BASOPHILS % (AUTO) 0.3 %; EOSINOPHILS # (AUTO) 0.2 10^3/uL (0.0-0.7); EOSINOPHILS % (AUTO) 1.2 %; HCT - HEMATOCRIT 30.4 % (42.0-52.0); HGB - HEMOGLOBIN 9.1 g/dL (14.0-18.0); LYMPHOCYTES # (AUTO) 1.7 10^3/uL (1.5-3.5); LYMPHOCYTES % (AUTO) 11.4 %; MEAN CORPUSCULAR HEMOGLOBIN 24.6 pg (27.0-31.0); MEAN CORPUSCULAR HGB CONC 29.9 g/dL (32.0-36.0); MEAN CORPUSCULAR VOLUME 82.2 fL (80.0-94.0); MEAN PLATELET VOLUME 8.7 fL (7.4-11.4); MONOCYTES # (AUTO) 1.1 10^3/uL (0.0-1.0); MONOCYTES % (AUTO) 7.7 %; NEUTROPHILS # (AUTO) 11.5 10^3/uL (1.5-6.6); NEUTROPHILS % (AUTO) 78.1 %; PLT - PLATELET COUNT 422 10^3/uL (130-450); RED CELL DISTRIBUTION WIDTH 15.9 % (12.0-15.0); WHITE BLOOD COUNT 14.7 x10^3/uL (4.8-10.8)
[2023-05-26 05:00] LABS: BASOPHILS # (AUTO) 0.1 10^3/uL (0.0-0.1); BASOPHILS % (AUTO) 0.3 %; EOSINOPHILS # (AUTO) 0.2 10^3/uL (0.0-0.7); EOSINOPHILS % (AUTO) 0.9 %; HCT - HEMATOCRIT 30.4 % (42.0-52.0); HGB - HEMOGLOBIN 9.3 g/dL (14.0-18.0); LYMPHOCYTES # (AUTO) 1.8 10^3/uL (1.5-3.5); LYMPHOCYTES % (AUTO) 9.5 %; MEAN CORPUSCULAR HEMOGLOBIN 24.9 pg (27.0-31.0); MEAN CORPUSCULAR HGB CONC 30.6 g/dL (32.0-36.0); MEAN CORPUSCULAR VOLUME 81.5 fL (80.0-94.0); MEAN PLATELET VOLUME 8.3 fL (7.4-11.4); MONOCYTES # (AUTO) 1.4 10^3/uL (0.0-1.0); MONOCYTES % (AUTO) 7.5 %; NEUTROPHILS # (AUTO) 14.9 10^3/uL (1.5-6.6); NEUTROPHILS % (AUTO) 80.6 %; PLT - PLATELET COUNT 381 10^3/uL (130-450); RED BLOOD COUNT 3.73 10^6/uL (4.70-6.10); RED CELL DISTRIBUTION WIDTH 16.3 % (12.0-15.0); WHITE BLOOD COUNT 18.5 x10^3/uL (4.8-10.8)
--- NOTE | 2023-05-26 09:14 | PROVIDER PROGRESS NOTE ---
Assessment/Plan - Problem List (1) Cancer related pain Assessment/Plan: Patient complaining of pain from rib on left side. Etiology of pain is most likely is related to his underlying metastatic cancer. He also has abd pain, had Urol procedure yesterday. He is in the anger stage of realizing that he has a short time to live Plan: Hydromorphone 0.5 mg IV every 2 hours as needed for pain. Dose to be adjusted up or down as needed. (2) Hydronephrosis He had a hydronephrosis despite having a stent in place. 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 The last Hosptalist discussed goals of care and the patient does not want to undergo chest compressions, cardioversion or intubation in the event of a cardiopulmonary arrest. DNR was ordered He does not wish to undergo some type of palliative treatment for his cancer. (4) DM Plan: Continue diabetic diet, fingerstick checks, sliding scale insulin coverage, hypoglycemia protocol (5) Tobacco use Patient told me that he is smokes a pack a day and has no desire to quit Plan: Nicotine patch was ordered which he declined. (6) Generalized weakness He lives alone. He has been able to do less and less for himself. His next- door neighbor is his best friend and is the patient that we are supposed to contact. His plan is that he will go home and be able to take care of himself. Plan: PT and OT ordered to evaluate him to see if he is able to return to home Social work to work with patient regarding possible new DPOA signing and choice of SNF I suspect he will need a Palliative Care consult to help guide him through all the decisions that are coming up for him - Current Meds Current Meds: Current Medications Generic Name Dose Route Start Last Admin Trade Name Freq PRN Reason Stop Dose Admin Guaifenesin 600 mg 05/25/23 03:41 05/25/23 12:51 Guaifenesin 600 Mg Tablet PO 600 mg BID PRN Administration Cough Hydromorphone HCl 0.5 mg 05/23/23 17:35 05/26/23 05:19 Hydromorphone 0.5 Mg/0.5 Ml Syringe IVP 0.5 mg Q2H PRN Administration Pain 8 to 10 Sodium Chloride 1,000 mls @ 83.333 mls/hr 05/23/23 19:00 05/26/23 01:18 Normal Saline 0.9% IV 83.333 mls/hr .Q12H DK Administration Insulin Human Lispro 1 - 5 unit 05/24/23 17:00 05/25/23 21:04 Insulin Lispro 300 Unit/3 Ml Pen SUBQ 2 unit 0800,1200,1700,2100 DK Administration Protocol Sodium Chloride 10 ml 05/23/23 17:35 05/25/23 23:22 Sodium Chloride Flush 0.9% 10 Ml Syringe IVP 10 ml PRN PRN Administration NEEDED PER PROVIDER ORDERS Sodium Chloride 10 ml 05/24/23 01:00 05/26/23 00:15 Sodium Chloride Flush 0.9% 10 Ml Syringe IVP Not Given 0100,0900,1700 DK - Lab Result Fish Bone Diagrams: 05/26/23 04:47 05/24/23 05:30 - Additional Planning My Orders: My Active Orders 05/25/23 Dinner Carb-controlled Diet [DIET] Subjective - Subjective Patient Reports: Other (c/o cold food, inattetive staff, pain in abd and diffusely) Nursing Reports: Other (Pt was angry and was throwing water bottle at staff in a.m.) Objective Vital Signs: Vital Signs - 24 hr 05/25/23 05/25/23 05/25/23 13:11 17:00 17:05 Temperature 37.1 C 37.1 C Heart Rate [ 88 92 Brachial] Respiratory 20 16 Rate Blood Pressure 145/72 H 129/63 [Right Brachial artery] O2 Saturation 92 89 L 92 If not protocol 1 : Oxygen Flow, liters/minute 05/25/23 05/26/23 05/26/23 21:00 00:10 03:18 Temperature 37.8 C 37.6 C 37.2 C Heart Rate [ 94 93 82 Brachial] Respiratory 17 16 18 Rate Blood Pressure 139/63 H 155/69 H 141/64 H [Right Brachial artery] O2 Saturation 91 L 92 90 L If not protocol 1 1 0.5 : Oxygen Flow, liters/minute 05/26/23 05/26/23 05:34 08:08 Temperature 36.8 C Heart Rate [ 80 83 Brachial] Respiratory 19 20 Rate Blood Pressure 137/61 H 124/68 [Right Brachial artery] O2 Saturation 92 91 L If not protocol 0.5 : Oxygen Flow, liters/minute Oxygen O2 Source Oxymask I&O (Last 24 Hrs): Intake and Output Totals x24h 05/24/23 05/25/23 05/26/23 23:59 23:59 23:59 Intake Total 1752.805 2725.718 1550 Output Total 765 2000 1300 Balance 138.396 9342.718 250 General: Alert, Moderate distress (when he moves por coughs) HEENT: Mucous membr. moist/pink, Other (Long hair and long alicea and mustache, disheveled) Neck: Other (cannot eval due to long alicea) Neuro: Alert, Non Focal Cardiovascular: No murmurs Respiratory: No respiratory distress, Other (Increased AP diameter, poor air movement but no wheezing or rhonchi) Abdomen: Soft Extremities: No clubbing, No edema, Other (Fingernails are yellow (from cigar ette smoking)) - Results Results: Laboratory Results WBC 18.5 x10^3/uL (4.8-10.8) H 05/26/23 04:47 RBC 3.73 10^6/uL (4.70-6.10) L 05/26/23 04:47 Hgb 9.3 g/dL (14.0-18.0) L 05/26/23 04:47 Hct 30.4 % (42.0-52.0) L 05/26/23 04:47 MCV 81.5 fL (80.0-94.0) 05/26/23 04:47 MCH 24.9 pg (27.0-31.0) L 05/26/23 04:47 MCHC 30.6 g/dL (32.0-36.0) L 05/26/23 04:47 RDW 16.3 % (12.0-15.0) H 05/26/23 04:47 Plt Count 381 10^3/uL (130-450) 05/26/23 04:47 MPV 8.3 fL (7.4-11.4) 05/26/23 04:47 Neut # (Auto) 14.9 10^3/uL (1.5-6.6) H 05/26/23 04:47 Lymph # (Auto) 1.8 10^3/uL (1.5-3.5) 05/26/23 04:47 [place] # (Auto) 1.4 10^3/uL (0.0-1.0) H 05/26/23 04:47 Eos # (Auto) 0.2 10^3/uL (0.0-0.7) 05/26/23 04:47 Baso # (Auto) 0.1 10^3/uL (0.0-0.1) 05/26/23 04:47 Absolute Nucleated RBC 0.00 x10^3/uL 05/26/23 04:47 Nucleated RBC % 0.0 /100WBC 05/26/23 04:47 Sodium 136 mmol/L (135-145) 05/24/23 05:30 Potassium 4.1 mmol/L (3.5-4.5) 05/24/23 05:30 Chloride 106 mmol/L (101-111) 05/24/23 05:30 Carbon Dioxide 24 mmol/L (21-32) 05/24/23 05:30 Anion Gap 6.0 (6-13) 05/24/23 05:30 BUN 21 mg/dL (6-20) H 05/24/23 05:30 Creatinine 1.1 mg/dL (0.6-1.3) 05/24/23 05:30 Estimated GFR (MDRD) 65 (>89) L 05/24/23 05:30 Glucose 155 mg/dL (74-104) H 05/24/23 05:30 POC Whole Bld Glucose 180 mg/dL (70 - 100) H 05/26/23 08:00 Estimat Average Glucose 166 mg/dL (70-100) H 05/24/23 05:30 Hemoglobin A1c % 7.4 % (4.27-6.07) H 05/24/23 05:30 Calcium 8.9 mg/dL (8.5-10.3) 05/24/23 05:30 Phosphorus 3.3 mg/dL (2.5-5.0) 05/24/23 05:30 Magnesium 1.9 mg/dL (1.7-2.3) 05/24/23 05:30 Total Bilirubin 0.3 mg/dL (0.2-1.0) 05/23/23 15:06 AST 9 IU/L (10-42) L 05/23/23 15:06 ALT 13 IU/L (10-60) 05/23/23 15:06 Alkaline Phosphatase 52 IU/L (42-121) 05/23/23 15:06 Total Protein 6.4 g/dL (6.4-8.9) 05/23/23 15:06 Albumin 3.1 g/dL (3.2-5.5) L 05/23/23 15:06 Globulin 3.3 g/dL (2.1-4.2) 05/23/23 15:06 Albumin/Globulin Ratio 0.9 (1.0-2.2) L 05/23/23 15:06 Urine Color YELLOW 05/23/23 16:31 Urine Clarity SL. CLOUDY (CLEAR) 05/23/23 16:31 Urine pH 6.0 PH (5.0-7.5) 05/23/23 16:31 Ur Specific [place] 1.010 (1.002-1.030) 05/23/23 16:31 Urine Protein 30 mg/dL (NEGATIVE) H 05/23/23 16:31 Urine Glucose (UA) >=1000 mg/dL (NEGATIVE) H 05/23/23 16:31 Urine Ketones NEGATIVE mg/dL (NEGATIVE) 05/23/23 16:31 Urine Occult Blood LARGE (NEGATIVE) H 05/23/23 16:31 Urine Nitrite NEGATIVE (NEGATIVE) 05/23/23 16:31 Urine Bilirubin NEGATIVE (NEGATIVE) 05/23/23 16:31 Urine Urobilinogen 0.2 (NORMAL) E.U./dL (NORMAL) 05/23/23 16:31 Ur Leukocyte Esterase NEGATIVE (NEGATIVE) 05/23/23 16:31 Urine RBC 6-10 /HPF (0-5) H 05/23/23 16:31 Urine WBC 6-10 /HPF (0-3) H 05/23/23 16:31 Urine WBC Clumps PRESENT 05/23/23 16:31 Ur Squamous Epith Cells FEW Squamous (<= Few) 05/23/23 16:31 Urine Bacteria Few /HPF (None Seen) 05/23/23 16:31 Urine Casts 0-2 Hyaline Casts /LPF0-2 WBC Casts /LPF 05/23/23 16:31 Urine Casts 0-2 Hyaline Casts /LPF0-2 WBC Casts /LPF 05/23/23 16:31 Urine Mucus Moderate Strands 05/23/23 16:31 Ur Microscopic Review INDICATED 05/23/23 16:31 Urine Culture Comments NOT INDICATED 05/23/23 16:31 - Procedures Procedures: Procedures CLOSED ENDOSCOPIC BIOPSY OF LARGE INTESTINE (01/18/14) ENDOSC POLYPECTOMY OF LG INTEST (01/18/14) ENDOSCOPIC BIOPSY OF RECTUM (01/18/14) OTH & OPEN REPAIR INDIRECT INGUINAL HERNIA W GRFT OR PROSTH (04/15/13)
--- NOTE | 2023-05-26 10:03 | PROVIDER PROGRESS NOTE ---
Subjective - Prog Note Date Prog Note Date: 05/26/23 - Subjective Pt reports feeling: Improved (He feels stiff and has not ambulated much but his back pain and flank pains improved) Objective - Vital Signs/Intake & Output Reviewed Vital Signs: Yes Vital Signs: Vital Signs x48h Temp Pulse Resp BP Pulse Ox O2 Flow Rate 05/26/23 08:08 36.8 C 83 20 124/68 91 L 0.5 05/26/23 05:34 80 19 137/61 H 92 05/26/23 03:18 37.2 C 82 18 141/64 H 90 L 0.5 Intake & Output: Intake & Output 05/23/23 05/24/23 05/25/23 05/26/23 23:59 23:59 23:59 23:59 Intake Total 1350 8395.901 5452.718 1650 Output Total 957 948 7785 1300 Balance 1050 932.594 4910.718 350 - Lab Results Fish Bones: 05/26/23 04:47 05/24/23 05:30 Other Labs: Lab Results x24hrs 05/26/23 05/26/23 05/25/23 Range/Units 08:00 04:47 20:51 WBC 18.5 H (4.8-10.8) x10^3/uL RBC 3.73 L (4.70-6.10) 10^6/uL Hgb 9.3 L (14.0-18.0) g/dL Hct 30.4 L (42.0-52.0) % MCV 81.5 (80.0-94.0) fL MCH 24.9 L (27.0-31.0) pg MCHC 30.6 L (32.0-36.0) g/dL RDW 16.3 H (12.0-15.0) % Plt Count 381 (130-450) 10^3/uL MPV 8.3 (7.4-11.4) fL Neut # (Auto) 14.9 H (1.5-6.6) 10^3/uL Lymph # (Auto) 1.8 (1.5-3.5) 10^3/uL [place] # (Auto) 1.4 H (0.0-1.0) 10^3/uL Eos # (Auto) 0.2 (0.0-0.7) 10^3/uL Baso # (Auto) 0.1 (0.0-0.1) 10^3/uL Absolute Nucleated RBC 0.00 x10^3/uL Nucleated RBC % 0.0 /100WBC POC Whole Bld Glucose 180 H 187 H (70 - 100) mg/dL 05/25/23 05/25/23 Range/Units 16:22 11:07 WBC (4.8-10.8) x10^3/uL RBC (4.70-6.10) 10^6/uL Hgb (14.0-18.0) g/dL Hct (42.0-52.0) % MCV (80.0-94.0) fL MCH (27.0-31.0) pg MCHC (32.0-36.0) g/dL RDW (12.0-15.0) % Plt Count (130-450) 10^3/uL MPV (7.4-11.4) fL Neut # (Auto) (1.5-6.6) 10^3/uL Lymph # (Auto) (1.5-3.5) 10^3/uL [place] # (Auto) (0.0-1.0) 10^3/uL Eos # (Auto) (0.0-0.7) 10^3/uL Baso # (Auto) (0.0-0.1) 10^3/uL Absolute Nucleated RBC x10^3/uL Nucleated RBC % /100WBC POC Whole Bld Glucose 203 H 179 H (70 - 100) mg/dL ABX Reporting Has patient been on IV antibiotics over the past 48 hours?: No Assessment/Plan - Problem List (1) Cancer related pain Impression: We discussed the transrectal ultrasound guided prostate biopsy in depth. We discussed the risk, benefits, alternatives. We discussed specific risks of infection and bleeding and pain. We discussed need for antibiotics. I prefer using ciprofloxacin 500 mg the night before the biopsy and 1 pill of 500 mg 2 hours before the biopsy. Also recommend using a fleets enema 1-2 hours before the biopsy, which he will leaf size picker. We discussed the expected intraoperative and postoperative management. Patient stated understanding and consents to above plan. Urology signing off
[2023-05-26] MEDS: polyethylene glycoL 3350 17 GM PACKET PO SCH (11:54)
[2023-05-26] MEDS ORDERED: SIMETHICONE CHEW 80 MG TABLET PO PRN (15:20)
[2023-05-26] MEDS: MULTIVITAMIN W/MINERALS TABLET PO SCH (17:29)
--- NOTE | 2023-05-26 17:30 | PROVIDER PROGRESS NOTE ---
Assessment/Plan - Problem List (1) Cancer related pain Assessment/Plan: Patient complaining of pain from rib on left side. Etiology of pain is most likely is related to his underlying metastatic cancer. He also has some abd/pelvic pain, since the Urol procedure done 05/24/23. I spoke to Dr. Fabian about this patient today. The Urologist thinks he has 3 months to live Plan: Cont narcotics as needed for pain. Dose to be adjusted up or down as needed. (2) Hydronephrosis He had a hydronephrosis despite having a stent in place. 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 The last Hosptalist discussed goals of care and the patient does not want to undergo chest compressions, cardioversion or intubation in the event of a cardiopulmonary arrest. DNR was ordered He does not wish to undergo some type of palliative treatment for his cancer. I spoke to Dr. Fabian about this patient today. The Urologist thinks he has 3 months to live Plan: Palliative Care consult ordered (4) DM Plan: Continue diabetic diet, fingerstick checks, sliding scale insulin coverage, hypoglycemia protocol (5) Tobacco use Patient told me that he is smokes a pack a day and has no desire to quit Plan: Nicotine patch was ordered which he declined. (6) Generalized weakness He lives alone. He has been able to do less and less for himself. His next- door neighbor is his best friend and is the patient that we are supposed to contact. His plan is that he will go home and be able to take care of himself. Plan: PT and OT ordered to evaluate him to see if he is able to return to home Social work to work with patient regarding possible new DPOA signing and choice of SNF Today a Palliative Care consult was ordered - Current Meds Current Meds: Current Medications Generic Name Dose Route Start Last Admin Trade Name Freq PRN Reason Stop Dose Admin Guaifenesin 600 mg 05/25/23 03:41 05/26/23 11:54 Guaifenesin 600 Mg Tablet PO 600 mg BID PRN Administration Cough Hydromorphone HCl 0.5 mg 05/23/23 17:35 05/26/23 16:32 Hydromorphone 0.5 Mg/0.5 Ml Syringe IVP 0.5 mg Q2H PRN Administration Pain 8 to 10 Sodium Chloride 1,000 mls @ 83.333 mls/hr 05/23/23 19:00 05/26/23 15:15 Normal Saline 0.9% IV 83.333 mls/hr .Q12H DK Administration Insulin Human Lispro 1 - 5 unit 05/24/23 17:00 05/26/23 12:55 Insulin Lispro 300 Unit/3 Ml Pen SUBQ 2 unit 0800,1200,1700,2100 DK Administration Protocol Polyethylene Glycol 17 gm 05/26/23 12:00 05/26/23 11:54 Polyethylene Glycol 3350 17 Gm Packet PO 17 gm DAILY DK Administration Sodium Chloride 10 ml 05/23/23 17:35 05/25/23 23:22 Sodium Chloride Flush 0.9% 10 Ml Syringe IVP 10 ml PRN PRN Administration NEEDED PER PROVIDER ORDERS Sodium Chloride 10 ml 05/24/23 01:00 05/26/23 11:37 Sodium Chloride Flush 0.9% 10 Ml Syringe IVP 10 ml 0100,0900,1700 DK Administration - Lab Result Fish Bone Diagrams: 05/26/23 04:47 05/24/23 05:30 - Additional Planning My Orders: My Active Orders 05/26/23 Palliative Care Consult [CONS] Routine Evaluate and Treat OT [OT] Routine Evaluate and Treat PT [PT] Routine 05/26/23 12:00 polyethylene glycoL 3350 [Miralax] 17 gm PO DAILY 05/26/23 15:20 Simethicone [Mylicon] 80 mg PO 0900,1300,1800,2100 PRN 05/26/23 15:22 Nutrition Consult [CONS] Routine 05/26/23 Dinner Carb-controlled Diet [DIET] 05/26/23 17:00 Multivitamin W/Minerals [Theragran M] 1 tab PO DAILYWM Subjective - Subjective Patient Reports: Resting Comfortably, Pain (He gets spasms of pain when he moves or when he coughs) Objective Vital Signs: Vital Signs - 24 hr 05/25/23 05/26/23 05/26/23 21:00 00:10 03:18 Temperature 37.8 C 37.6 C 37.2 C Heart Rate [ 94 93 82 Brachial] Respiratory 17 16 18 Rate Blood Pressure 139/63 H 155/69 H 141/64 H [Right Brachial artery] O2 Saturation 91 L 92 90 L If not protocol 1 1 0.5 : Oxygen Flow, liters/minute 05/26/23 05/26/23 05/26/23 05:34 08:08 12:47 Temperature 36.8 C 36.8 C Heart Rate [ 80 83 84 Brachial] Respiratory 19 20 20 Rate Blood Pressure 137/61 H 124/68 102/65 [Right Brachial artery] O2 Saturation 92 91 L 92 If not protocol 0.5 0.5 : Oxygen Flow, liters/minute 05/26/23 15:35 Temperature 37.0 C Heart Rate [ 88 Brachial] Respiratory 16 Rate Blood Pressure 130/67 [Right Brachial artery] O2 Saturation 93 If not protocol 0.5 : Oxygen Flow, liters/minute Oxygen O2 Source Oxymask I&O (Last 24 Hrs): Intake and Output Totals x24h 05/24/23 05/25/23 05/26/23 23:59 23:59 23:59 Intake Total 2911.850 5554.718 2850 Output Total 765 2000 2300 Balance 262.686 5647.718 550 General: Moderate distress (when moves or coughs) HEENT: Mucous membr. moist/pink, Other (Along disheveled hair, long alicea and mustache) Neck: Other (Cannot evaluate due to long alicea) Neuro: Alert, Non Focal Cardiovascular: Regular rate Respiratory: No respiratory distress Abdomen: Soft Extremities: No edema - Results Results: Laboratory Results WBC 18.5 x10^3/uL (4.8-10.8) H 05/26/23 04:47 RBC 3.73 10^6/uL (4.70-6.10) L 05/26/23 04:47 Hgb 9.3 g/dL (14.0-18.0) L 05/26/23 04:47 Hct 30.4 % (42.0-52.0) L 05/26/23 04:47 MCV 81.5 fL (80.0-94.0) 05/26/23 04:47 MCH 24.9 pg (27.0-31.0) L 05/26/23 04:47 MCHC 30.6 g/dL (32.0-36.0) L 05/26/23 04:47 RDW 16.3 % (12.0-15.0) H 05/26/23 04:47 Plt Count 381 10^3/uL (130-450) 05/26/23 04:47 MPV 8.3 fL (7.4-11.4) 05/26/23 04:47 Neut # (Auto) 14.9 10^3/uL (1.5-6.6) H 05/26/23 04:47 Lymph # (Auto) 1.8 10^3/uL (1.5-3.5) 05/26/23 04:47 [place] # (Auto) 1.4 10^3/uL (0.0-1.0) H 05/26/23 04:47 Eos # (Auto) 0.2 10^3/uL (0.0-0.7) 05/26/23 04:47 Baso # (Auto) 0.1 10^3/uL (0.0-0.1) 05/26/23 04:47 Absolute Nucleated RBC 0.00 x10^3/uL 05/26/23 04:47 Nucleated RBC % 0.0 /100WBC 05/26/23 04:47 Sodium 136 mmol/L (135-145) 05/24/23 05:30 Potassium 4.1 mmol/L (3.5-4.5) 05/24/23 05:30 Chloride 106 mmol/L (101-111) 05/24/23 05:30 Carbon Dioxide 24 mmol/L (21-32) 05/24/23 05:30 Anion Gap 6.0 (6-13) 05/24/23 05:30 BUN 21 mg/dL (6-20) H 05/24/23 05:30 Creatinine 1.1 mg/dL (0.6-1.3) 05/24/23 05:30 Estimated GFR (MDRD) 65 (>89) L 05/24/23 05:30 Glucose 155 mg/dL (74-104) H 05/24/23 05:30 POC Whole Bld Glucose 264 mg/dL (70 - 100) H 05/26/23 16:41 Estimat Average Glucose 166 mg/dL (70-100) H 05/24/23 05:30 Hemoglobin A1c % 7.4 % (4.27-6.07) H 05/24/23 05:30 Calcium 8.9 mg/dL (8.5-10.3) 05/24/23 05:30 Phosphorus 3.3 mg/dL (2.5-5.0) 05/24/23 05:30 Magnesium 1.9 mg/dL (1.7-2.3) 05/24/23 05:30 Total Bilirubin 0.3 mg/dL (0.2-1.0) 05/23/23 15:06 AST 9 IU/L (10-42) L 05/23/23 15:06 ALT 13 IU/L (10-60) 05/23/23 15:06 Alkaline Phosphatase 52 IU/L (42-121) 05/23/23 15:06 Total Protein 6.4 g/dL (6.4-8.9) 05/23/23 15:06 Albumin 3.1 g/dL (3.2-5.5) L 05/23/23 15:06 Globulin 3.3 g/dL (2.1-4.2) 05/23/23 15:06 Albumin/Globulin Ratio 0.9 (1.0-2.2) L 05/23/23 15:06 Urine Color YELLOW 05/23/23 16:31 Urine Clarity SL. CLOUDY (CLEAR) 05/23/23 16:31 Urine pH 6.0 PH (5.0-7.5) 05/23/23 16:31 Ur Specific [place] 1.010 (1.002-1.030) 05/23/23 16:31 Urine Protein 30 mg/dL (NEGATIVE) H 05/23/23 16:31 Urine Glucose (UA) >=1000 mg/dL (NEGATIVE) H 05/23/23 16:31 Urine Ketones NEGATIVE mg/dL (NEGATIVE) 05/23/23 16:31 Urine Occult Blood LARGE (NEGATIVE) H 05/23/23 16:31 Urine Nitrite NEGATIVE (NEGATIVE) 05/23/23 16:31 Urine Bilirubin NEGATIVE (NEGATIVE) 05/23/23 16:31 Urine Urobilinogen 0.2 (NORMAL) E.U./dL (NORMAL) 05/23/23 16:31 Ur Leukocyte Esterase NEGATIVE (NEGATIVE) 05/23/23 16:31 Urine RBC 6-10 /HPF (0-5) H 05/23/23 16:31 Urine WBC 6-10 /HPF (0-3) H 05/23/23 16:31 Urine WBC Clumps PRESENT 05/23/23 16:31 Ur Squamous Epith Cells FEW Squamous (<= Few) 05/23/23 16:31 Urine Bacteria Few /HPF (None Seen) 05/23/23 16:31 Urine Casts 0-2 Hyaline Casts /LPF0-2 WBC Casts /LPF 05/23/23 16:31 Urine Casts 0-2 Hyaline Casts /LPF0-2 WBC Casts /LPF 05/23/23 16:31 Urine Mucus Moderate Strands 05/23/23 16:31 Ur Microscopic Review INDICATED 05/23/23 16:31 Urine Culture Comments NOT INDICATED 05/23/23 16:31 - Procedures Procedures: Procedures CLOSED ENDOSCOPIC BIOPSY OF LARGE INTESTINE (01/18/14) ENDOSC POLYPECTOMY OF LG INTEST (01/18/14) ENDOSCOPIC BIOPSY OF RECTUM (01/18/14) OTH & OPEN REPAIR INDIRECT INGUINAL HERNIA W GRFT OR PROSTH (04/15/13)
[2023-05-27 06:18] LABS: BASOPHILS # (AUTO) 0.1 10^3/uL (0.0-0.1); BASOPHILS % (AUTO) 0.3 %; EOSINOPHILS # (AUTO) 0.3 10^3/uL (0.0-0.7); EOSINOPHILS % (AUTO) 1.6 %; HCT - HEMATOCRIT 31.5 % (42.0-52.0); HGB - HEMOGLOBIN 9.6 g/dL (14.0-18.0); LYMPHOCYTES # (AUTO) 1.6 10^3/uL (1.5-3.5); LYMPHOCYTES % (AUTO) 8.5 %; MEAN CORPUSCULAR HEMOGLOBIN 24.5 pg (27.0-31.0); MEAN CORPUSCULAR HGB CONC 30.5 g/dL (32.0-36.0); MEAN CORPUSCULAR VOLUME 80.4 fL (80.0-94.0); MEAN PLATELET VOLUME 8.9 fL (7.4-11.4); MONOCYTES # (AUTO) 1.3 10^3/uL (0.0-1.0); MONOCYTES % (AUTO) 6.6 %; NEUTROPHILS # (AUTO) 15.5 10^3/uL (1.5-6.6); NEUTROPHILS % (AUTO) 81.8 %; PLT - PLATELET COUNT 429 10^3/uL (130-450); RED BLOOD COUNT 3.92 10^6/uL (4.70-6.10); RED CELL DISTRIBUTION WIDTH 16.2 % (12.0-15.0)
[2023-05-27] MEDS: SENNA 8.6 MG TABLET PO SCH (09:17)
[2023-05-27] MEDS: DOCUSATE SODIUM 250 MG CAPSULE PO SCH (09:17)
--- NOTE | 2023-05-27 16:29 | CONSULTATION NOTE ---
Hospice Consultation ([facility]) - Hospice Consultation Hospice consult requested by Dr. Haro Consulting physician: Dr. Han Mortensen, Hospice Physician Reason for consult: Patient with metastatic bladder cancer, hydronephrosis with obstructed ureteral catheter left kidney and severe pain with concerns regarding hospice eligibility and potential placement. Historypatient is a 77-year-old male who initially presented to [facility] ED in mid March with left hydronephrosis and severe pain and mass in left ureteral vesicle junction. Was sent to [facility] in [place] where he had stent placed with tentative plans to consider cystoprostatectomy. Patient talked to Dr. Fabian, decided he did not want aggressive surgery and was referred for medical oncology but he canceled that appointment. He now presents with severe left flank and back pain, found to have obstructed stent. Dr. Fabian replaced the stent 3 days ago and also dilated significant urethral stenoses and placed Herbert catheter. Unfortunately CT imaging now shows multiple pulmonary nodules and probable metastatic lesions in the spine. Patient remains adamant he does not want any aggressive therapy or further interventions. He wishes to go home but lives by himself and is very vague about how he would manage his care or worsening debility. RN reports PT and OT did work with him today and he was able to ambulate a few steps but he refuses to reposition himself in bed. He apparently was unable to put on socks and has extremely long toenails. Past medical history: Hypertension, AODM 2, chronic nicotine use, hyperlipidemia, chronic constipation with hemorrhoids, age-related hearing loss and apparently some vision loss. Allergies: Reports allergy to penicillin of rash. Complains of throat swelling with various fruits including felisa, passion fruit, guava and papaya. Medicationscurrently getting as needed hydromorphone and insulin based on sliding scale but has needed minimal to no insulin. His home medications (not clear which he was consistently using): Amlodipine 10 mg daily, aspirin 81 mg daily, docusate 100 mg twice daily, lisinopril 20 mg daily, atorvastatin 20 mg daily, insulin glargine 41 units at bedtime, Combivent Respimat 1 puff 4 times daily, empagliflozin 10 mg daily, guaifenesin 400 mg daily and oxybutynin 5 mg at bedtime as needed. Social: Longtime smoker, denies use of alcohol or illicit drugs. He lives by himself. Has Medicare and Medicaid. Patient reports his sister but he denies that she exists, is somewhat vague about that. He insists he can take care of himself but very vague on any plan for the future. POLST: Does not have. Patient not in any mood to discuss advance care planning today. There is no DPOA or advance directives. Goals of care: Patient's focuses on getting home. Dislikes the food, does not feel people respond to his needs quickly enough. Appears to understand that he has metastatic cancer that will ultimately cause his but very vague on any plans for end-of-life care. It is very difficult for him to answer any direct questions such as can he reposition himself in bed, cook for himself, do laundry, etc. He reports periodically having low blood sugars but denies ever passing out. He understands hospice to be people who come in and do laundry, dishes, shopping and basically take care of him. He has no plans for care as his condition worsens. He has Medicare and Medicaid for insurance. PE: Somewhat disheveled elderly gentleman who certainly gets quite testy with any directed questions but had difficulty remembering any name or who we were or why we were there. Encouraged and asked several times to reposition himself in bed which he could not do. Stated his left side hurt but did not wish any pain medications and did not appear to be in acute distress. He could remember the name of his primary care physician (Dr. Beaver) and when he last saw him. He has IV fluids running and Herbert catheter in place. Urology consult note and operative notes reviewed. Urologist acknowledged patient does not wish further interventions. He estimated survival of 3 months. Impression: Elderly gentleman with metastatic bladder cancer which appears to be fairly aggressive. I would concur that without any therapeutic interventions his prognosis is limited to months and would be guarded even with the interventions. He would likely tolerate any interventions such as chemotherapy or radiation very poorly. He is certainly eligible for hospice care. Major issue is that I do not believe this gentleman can safely function at home in terms of managing his basic ADLs, medications and certainly not shopping and routine housework. He needs a safe disposition before hospice can be involved. Recommed: 1) discontinue Herbert catheter as per urology recommendation. It would be nice to see whether or not he can void adequately without a catheter. 2) minimal insulin requirements in the hospital may be related to decreased intake. Would advise not resuming his outpatient diabetic medications until he resumes eating and they can be adjusted accordingly. 3) additional OT and PT evaluation to see what additional help this individual will require and whether or not he can safely ambulate enough to care for himself. 4) in view of what I saw his function to be today and his limited understanding of his limitations or any plan to accommodate them I would highly recommend placement for care. He would probably best tolerate an adult family home, possibly [facility] [address]. It is recognized that with Medicare/Medicaid for coverage options may be limited. 5) discontinue blood pressure medications and atorvastatin. I also agree with urology recommendation to discontinue aspirin. 6) aggressive management of his constipation. He should certainly be on senna twice daily and MiraLAX as needed until he has a bowel movement. Constipation will not improve his pain or urinary function. In summary [facility] would be more than happy to admit him to our service once placement is arranged. Sending him home will almost certainly r esult in immediate APS referral. Thank you for this consult and please contact hospice office for any questions. KYLAH Mortensen MD [facility] Hospice Physician, [facility]
--- NOTE | 2023-05-27 18:35 | PROVIDER PROGRESS NOTE ---
Assessment/Plan - Problem List (1) Cancer related pain Assessment/Plan: Patient complaining of pain from rib on left side. Etiology of pain is most likely is related to his underlying metastatic cancer. He also has some abd/pelvic pain, since the Urol procedure done 05/24/23. I spoke to Dr. Fabian about this patient today. The Urologist thinks he has 3 months to live Plan: Cont narcotics as needed for pain. Dose to be adjusted up or down as needed. (2) Hydronephrosis He had a hydronephrosis despite having a stent in place. 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 The last Hosptalist discussed goals of care and the patient does not want to undergo chest compressions, cardioversion or intubation in the event of a cardiopulmonary arrest. DNR was ordered He does not wish to undergo some type of palliative treatment for his cancer. I spoke to Dr. Fabian about this patient today. The Urologist thinks he has 3 months to live Plan: Palliative Care consult ordered (4) DM Plan: Continue diabetic diet, fingerstick checks, sliding scale insulin coverage, hypoglycemia protocol (5) Tobacco use Patient told me that he is smokes a pack a day and has no desire to quit Plan: Nicotine patch was ordered which he declined. (6) Generalized weakness He lives alone. He has been able to do less and less for himself. His next- door neighbor is his best friend and is the patient that we are supposed to contact. His plan is that he will go home and be able to take care of himself. Plan: PT and OT ordered to evaluate him to see if he is able to return to home Social work to work with patient regarding possible new DPOA signing and choice of SNF Today a Palliative Care consult was ordered (7) Severe protein calorie malnutrition The patient has had nutritional intake of less than 50% for 2 weeks or more. He had had a 16% weight loss in 2 months. I suspect this is to poor appetite and generalized fatigue from his underlying cancer. Plan Nutrition consult for giving him advice about nutrition - Current Meds Current Meds: Current Medications Generic Name Dose Route Start Last Admin Trade Name Caseyq PRN Reason Stop Dose Admin Docusate Sodium 250 - 500 mg 05/27/23 09:00 05/27/23 09:17 Docusate Sodium 250 Mg Capsule PO 250 mg DAILY DK Administration Guaifenesin 600 mg 05/25/23 03:41 05/26/23 11:54 Guaifenesin 600 Mg Tablet PO 600 mg BID PRN Administration Cough Hydromorphone HCl 0.5 mg 05/23/23 17:35 05/27/23 00:32 Hydromorphone 0.5 Mg/0.5 Ml Syringe IVP 0.5 mg Q2H PRN Administration Pain 8 to 10 Sodium Chloride 1,000 mls @ 83.333 mls/hr 05/23/23 19:00 05/27/23 16:40 Normal Saline 0.9% IV 83.333 mls/hr .Q12H DK Administration Insulin Human Lispro 1 - 5 unit 05/24/23 17:00 05/27/23 17:13 Insulin Lispro 300 Unit/3 Ml Pen SUBQ 3 unit 0800,1200,1700,2100 DK Administration Protocol Multivitamins/Minerals 1 tab 05/26/23 17:00 05/27/23 09:17 Multivitamin W/Minerals Tablet PO 1 tab DAILYWM DK Administration Polyethylene Glycol 17 gm 05/26/23 12:00 05/27/23 09:17 Polyethylene Glycol 3350 17 Gm Packet PO 17 gm DAILY DK Administration Senna 8.6 - 17.2 mg 05/27/23 09:00 05/27/23 09:17 Senna 8.6 Mg Tablet PO 8.6 mg DAILY DK Administration Sodium Chloride 10 ml 05/23/23 17:35 05/25/23 23:22 Sodium Chloride Flush 0.9% 10 Ml Syringe IVP 10 ml PRN PRN Administration NEEDED PER PROVIDER ORDERS Sodium Chloride 10 ml 05/24/23 01:00 05/27/23 17:14 Sodium Chloride Flush 0.9% 10 Ml Syringe IVP Not Given 0100,0900,1700 DK - Lab Result Fish Bone Diagrams: 05/28/23 08:24 05/24/23 05:30 - Additional Planning My Orders: My Active Orders 05/27/23 Hospice Physician Consult [CONS] Routine 05/27/23 09:00 Docusate Sodium 250Mg Capsule [Colace 250Mg Capsule] 250 - 500 mg PO DAILY Senna [Senokot] 8.6 - 17.2 mg PO DAILY 05/27/23 21:00 Insulin Glargine-Yfgn [Semglee] 5 unit SUBQ BID 05/28/23 08:00 Herbert Discontinuation [RC] ONCE Subjective - Subjective Patient Reports: Cough, Pain Objective Vital Signs: Vital Signs - 24 hr 05/26/23 05/26/23 05/27/23 20:29 23:54 04:54 Temperature 36.8 C 37.4 C 37.0 C Heart Rate [ 71 80 79 Brachial] Respiratory 20 20 16 Rate Blood Pressure [Left Brachial artery] Blood Pressure 137/75 H 153/69 H 118/68 [Right Brachial artery] O2 Saturation 93 93 92 If not protocol 0.05 0.5 0.5 : Oxygen Flow, liters/minute 05/27/23 05/27/23 05/27/23 07:54 13:00 15:36 Temperature 37.1 C 36.8 C 36.7 C Heart Rate [ 75 75 82 Brachial] Respiratory 20 18 20 Rate Blood Pressure 141/71 H 130/63 [Left Brachial artery] Blood Pressure 130/61 [Right Brachial artery] O2 Saturation 90 L 94 92 If not protocol 0.5 : Oxygen Flow, liters/minute Oxygen O2 Source Room air I&O (Last 24 Hrs): Intake and Output Totals x24h 05/25/23 05/26/23 05/27/23 23:59 23:59 23:59 Intake Total 3164.718 4078.331 1661.669 Output Total 1999 3175 3225 Balance 1164.718 903.331 -1563.331 General: Alert, Oriented x3 HEENT: Mucous membr. moist/pink, Other (Long hair and long alicea which are disheveled) Neuro: Alert, Non Focal Cardiovascular: Regular rate Respiratory: No respiratory distress Abdomen: Soft Extremities: No edema - Results Results: Laboratory Results WBC 19.0 x10^3/uL (4.8-10.8) H 05/27/23 05:10 RBC 3.92 10^6/uL (4.70-6.10) L 05/27/23 05:10 Hgb 9.6 g/dL (14.0-18.0) L 05/27/23 05:10 Hct 31.5 % (42.0-52.0) L 05/27/23 05:10 MCV 80.4 fL (80.0-94.0) 05/27/23 05:10 MCH 24.5 pg (27.0-31.0) L 05/27/23 05:10 MCHC 30.5 g/dL (32.0-36.0) L 05/27/23 05:10 RDW 16.2 % (12.0-15.0) H 05/27/23 05:10 Plt Count 429 10^3/uL (130-450) 05/27/23 05:10 MPV 8.9 fL (7.4-11.4) 05/27/23 05:10 Neut # (Auto) 15.5 10^3/uL (1.5-6.6) H 05/27/23 05:10 Lymph # (Auto) 1.6 10^3/uL (1.5-3.5) 05/27/23 05:10 Gaines # (Auto) 1.3 10^3/uL (0.0-1.0) H 05/27/23 05:10 Eos # (Auto) 0.3 10^3/uL (0.0-0.7) 05/27/23 05:10 Baso # (Auto) 0.1 10^3/uL (0.0-0.1) 05/27/23 05:10 Absolute Nucleated RBC 0.00 x10^3/uL 05/27/23 05:10 Nucleated RBC % 0.0 /100WBC 05/27/23 05:10 Sodium 136 mmol/L (135-145) 05/24/23 05:30 Potassium 4.1 mmol/L (3.5-4.5) 05/24/23 05:30 Chloride 106 mmol/L (101-111) 05/24/23 05:30 Carbon Dioxide 24 mmol/L (21-32) 05/24/23 05:30 Anion Gap 6.0 (6-13) 05/24/23 05:30 BUN 21 mg/dL (6-20) H 05/24/23 05:30 Creatinine 1.1 mg/dL (0.6-1.3) 05/24/23 05:30 Estimated GFR (MDRD) 65 (>89) L 05/24/23 05:30 Glucose 155 mg/dL (74-104) H 05/24/23 05:30 POC Whole Bld Glucose 232 mg/dL (70 - 100) H 05/27/23 16:41 Estimat Average Glucose 166 mg/dL (70-100) H 05/24/23 05:30 Hemoglobin A1c % 7.4 % (4.27-6.07) H 05/24/23 05:30 Calcium 8.9 mg/dL (8.5-10.3) 05/24/23 05:30 Phosphorus 3.3 mg/dL (2.5-5.0) 05/24/23 05:30 Magnesium 1.9 mg/dL (1.7-2.3) 05/24/23 05:30 Total Bilirubin 0.3 mg/dL (0.2-1.0) 05/23/23 15:06 AST 9 IU/L (10-42) L 05/23/23 15:06 ALT 13 IU/L (10-60) 05/23/23 15:06 Alkaline Phosphatase 52 IU/L (42-121) 05/23/23 15:06 Total Protein 6.4 g/dL (6.4-8.9) 05/23/23 15:06 Albumin 3.1 g/dL (3.2-5.5) L 05/23/23 15:06 Globulin 3.3 g/dL (2.1-4.2) 05/23/23 15:06 Albumin/Globulin Ratio 0.9 (1.0-2.2) L 05/23/23 15:06 Urine Color YELLOW 05/23/23 16:31 Urine Clarity SL. CLOUDY (CLEAR) 05/23/23 16:31 Urine pH 6.0 PH (5.0-7.5) 05/23/23 16:31 Ur Specific [place] 1.010 (1.002-1.030) 05/23/23 16:31 Urine Protein 30 mg/dL (NEGATIVE) H 05/23/23 16:31 Urine Glucose (UA) >=1000 mg/dL (NEGATIVE) H 05/23/23 16:31 Urine Ketones NEGATIVE mg/dL (NEGATIVE) 05/23/23 16:31 Urine Occult Blood LARGE (NEGATIVE) H 05/23/23 16:31 Urine Nitrite NEGATIVE (NEGATIVE) 05/23/23 16:31 Urine Bilirubin NEGATIVE (NEGATIVE) 05/23/23 16:31 Urine Urobilinogen 0.2 (NORMAL) E.U./dL (NORMAL) 05/23/23 16:31 Ur Leukocyte Esterase NEGATIVE (NEGATIVE) 05/23/23 16:31 Urine RBC 6-10 /HPF (0-5) H 05/23/23 16:31 Urine WBC 6-10 /HPF (0-3) H 05/23/23 16:31 Urine WBC Clumps PRESENT 05/23/23 16:31 Ur Squamous Epith Cells FEW Squamous (<= Few) 05/23/23 16:31 Urine Bacteria Few /HPF (None Seen) 05/23/23 16:31 Urine Casts 0-2 Hyaline Casts /LPF0-2 WBC Casts /LPF 05/23/23 16:31 Urine Casts 0-2 Hyaline Casts /LPF0-2 WBC Casts /LPF 05/23/23 16:31 Urine Mucus Moderate Strands 05/23/23 16:31 Ur Microscopic Review INDICATED 05/23/23 16:31 Urine Culture Comments NOT INDICATED 05/23/23 16:31 - Procedures Procedures: Procedures CLOSED ENDOSCOPIC BIOPSY OF LARGE INTESTINE (01/18/14) ENDOSC POLYPECTOMY OF LG INTEST (01/18/14) ENDOSCOPIC BIOPSY OF RECTUM (01/18/14) OTH & OPEN REPAIR INDIRECT INGUINAL HERNIA W GRFT OR PROSTH (04/15/13)
[2023-05-27] MEDS: INSULIN GLARGINE-YFGN 300 UNIT/3 ML PEN SUBQ SCH (20:32)
[2023-05-28 08:36] LABS: BASOPHILS # (AUTO) 0.1 10^3/uL (0.0-0.1); BASOPHILS % (AUTO) 0.3 %; EOSINOPHILS # (AUTO) 0.2 10^3/uL (0.0-0.7); EOSINOPHILS % (AUTO) 1.1 %; HCT - HEMATOCRIT 32.2 % (42.0-52.0); LYMPHOCYTES # (AUTO) 1.6 10^3/uL (1.5-3.5); LYMPHOCYTES % (AUTO) 8.6 %; MEAN CORPUSCULAR HEMOGLOBIN 24.4 pg (27.0-31.0); MEAN CORPUSCULAR HGB CONC 31.1 g/dL (32.0-36.0); MEAN CORPUSCULAR VOLUME 78.5 fL (80.0-94.0); MEAN PLATELET VOLUME 8.7 fL (7.4-11.4); MONOCYTES # (AUTO) 1.3 10^3/uL (0.0-1.0); MONOCYTES % (AUTO) 7.2 %; NEUTROPHILS # (AUTO) 14.9 10^3/uL (1.5-6.6); NEUTROPHILS % (AUTO) 81.2 %; PLT - PLATELET COUNT 444 10^3/uL (130-450); RED CELL DISTRIBUTION WIDTH 16.1 % (12.0-15.0); WHITE BLOOD COUNT 18.4 x10^3/uL (4.8-10.8)
[2023-05-28] MEDS: HYDROmorphone 2 MG TABLET PO PRN (11:37)
[2023-05-28 12:19] VITALS: BP 126/68; O2SAT 92
--- NOTE | 2023-05-28 13:16 | Discharge Plan ---
Discharge Plan Problem Reviewed?: Yes Disposition: Home Health Service Condition: Stable Prescriptions: HYDROmorphone [Dilaudid] 2 mg PO Q8HR PRN #10 tab PRN Reason: Severe Pain (Level 7-10) Diet: Diabetic Activity Restrictions: Activity as Tolerated Shower Restrictions: No Assistance Devices: Walker, Cane Health Concerns: You were hospitalized because you needed an urgent Urology procedure and temporary Herbert catheter insertion. You were on IV narcotic medicines for pain control. We have transitioned you over to oral pain medications and you are being discharged home today as you have requested. I have prescribed Dilaudid pills for you to use at home. A referral was placed for a Home Health agency to come to your house to provide extra help with showering, physical therapy, activities of daily living and an RN to check vital signs and make sure your pain is under control. Plan of Treatment: As above. Please keep your upcoming appointment with Dr. Burroughs, he is at the "[facility] Oncology Medical clinic". Care Goals: Improvement in symptoms and stabilization are the goals. The Hospice doctor came to see you, and statwed that you decline further Hospice services. Assessment: Please use these instructions as a reminder. Follow-Up Care: [facility] - Medical No Smoking: If you smoke, Please STOP! Call for help.
--- NOTE | 2023-05-28 13:26 | DISCHARGE SUMMARY ---
"Discharge Summary Admit Date: 05/23/23 Discharge Date: 05/28/23 Discharging Provider: Dr Marcella Pickering Primary Care Provider: Dr Burroughs Code Status: Do Not Attempt Resuscitation Condition at Discharge: Stable Discharge Disposition: [facility] History of Present Illness: Hugh Mcneil is a 77-year-old man with a past medical history significant for bladder cancer. He currently has bilateral ureteral stents in place and was scheduled to have them removed by urology in the morning. Overnight patient developed severe left-sided rib pain. He denies history of ground-level fall or trauma. A CT scan of the abdomen and pelvis was performed today and revealed multiple pulmonary nodules most consistent with metastasis. The left ureteral stent is in place and there is left-sided hydroureter and hydronephrosis that is similar to prior examination. CT scan demonstrates left-sided bladder neoplasm. There appears to be a fracture of the superior endplate of L2. In the emergency room he received some hydromorphone. He was taken directly to the OR by Urpologist, Dr Fabian and I am meeting him post-op. When I interviewed the patient he is lying in bed and appears to be comfortable. He awakens to voice and states his current pain level is 4 out of 10. He will be admitted to manage Hydronephrosis requiring a stent to relieve obstruction and a Herbert after urethra was dilated. His CODE STATUS is DNR. - CONSULTS | PROCEDURES Consultations: Dr Fabian - HOSPITAL COURSE Hospital Course: Patient had pain from rib on left side, most likely is related to his metastatic cancer. He also has abd/pelvic pain,. The Urologist thinks he has 3 months to live. He received narcotics as needed for pain. He was seen by risk management consultant and did not wish to be under Hospice care. (2) Hydronephrosis He had a hydronephrosis despite having a stent in place. 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 He decided to be a DNR. He was seen by risk management consultant and did not wish to be under Hospice care. He is to meet Dr Burroughs, Oncologist, after discharge. (4) DM He was managed on a diabetic diet, had fingerstick checks, sliding scale insulin coverage, hypoglycemia protocol (5) Tobacco use Patient stated that he is smokes a pack a day and has no desire to quit. He was not in a COPD exacerbation while here. (6) Generalized weakness He lives alone. He has been able to do less and less for himself. His next- door neighbor is his helper. He did not want to do DPOA paoperwork while here, which was offered by [facility]. A Home Health referral was ordered at time of discharge. (7) Severe protein calorie malnutrition The patient has had nutritional intake of less than 50% for 2 weeks or more, and had had a 16% weight loss in 2 months. [employer] saw him for giving him advice about nutrition - ALLERGIES Allergies/Adverse Reactions: Allergies Allergy/AdvReac Type Severity Reaction Status Date / Time Penicillins Allergy Severe Rash Verified 05/23/23 15:06 felisa Allergy throat Verified 05/23/23 15:06 swells passion fruit Allergy Unknown Verified 05/23/23 15:06 guava Allergy throat Uncoded 05/23/23 15:06 swells papaya Allergy throat Uncoded 05/23/23 15:06 swells - MEDICATIONS Home Medications: Ambulatory Orders Medication Instructions Recorded Confirmed Aspirin [Aspir 81] 81 mg PO DAILY 02/20/15 05/24/23 Docusate Sodium 100 mg PO BID 02/20/15 05/24/23 Lisinopril 20 mg PO DAILY 02/20/15 05/24/23 Atorvastatin [Lipitor] 20 mg PO QPM 04/03/23 05/24/23 Insulin Glargine [Lantus Solostar] 41 units SUBQ HS 04/03/23 05/24/23 Ipratropium/Albuterol [Combivent 1 puffs INH Q6HR PRN 04/03/23 05/24/23 Respimat] Empagliflozin [Jardiance] 10 mg PO DAILY 05/18/23 05/24/23 guaiFENesin [Chest Congestion 400 mg PO DAILY 05/18/23 05/24/23 Relief] Amlodipine Besylate [Norvasc] 10 mg PO DAILY 05/24/23 05/24/23 HYDROmorphone [Dilaudid] 2 mg PO Q8HR PRN #10 tab 05/28/23 - PHYSICAL EXAM AT DISCHARGE General Appearance: positive: No acute distress, Alert, Other (Disheveled with long hair and long alicea) Eyes Bilateral: positive: Normal inspection, EOMI ENT: positive: ENT inspection nml, No signs of dehydration Neck: positive: Nml inspection, No JVD Respiratory: positive: Other (Clear but poor air mvm in all lung jacob) Cardiovascular: positive: Regular rate & rhythm, No murmur Abdomen: positive: Non-tender, No distention, Other (Obese) Skin: positive: Warm, Dry Extremities: positive: No pedal edema Neurologic/Psychiatric: positive: Oriented x3, CN's nml (2-12), Motor nml - LABS Result Diagrams: 05/28/23 08:24 05/24/23 05:30 - FOLLOW UP Follow Up: Pt to start seeing Dr Burroughs of Oncology. - TIME SPENT Time Spent in Discharge (Minutes): 40"
== END 2023-05-28 15:42 | disposition home health service (06) | DRG 939 ==
LOC: EDUNIT# → ED 14:49 → MS2 17:36
PROVIDERS: ADMIT Internal Medicine; ATTEND Internal Medicine
PROC: 0T778DZ Dilation of Left Ureter with Intraluminal Device, Via Natural or Artificial Opening Endoscopic (ICD-10-PCS; 2023-05-24)
PROC: 0T7D8ZZ Dilation of Urethra, Via Natural or Artificial Opening Endoscopic (ICD-10-PCS; 2023-05-24)
PROC: 0T9B80Z Drainage of Bladder with Drainage Device, Via Natural or Artificial Opening Endoscopic (ICD-10-PCS; 2023-05-24)
PROC: 0TP98DZ Removal of Intraluminal Device from Ureter, Via Natural or Artificial Opening Endoscopic (ICD-10-PCS; principal; 2023-05-24 10:15)
DX: N13.30 Unspecified hydronephrosis (principal); G89.3 Neoplasm related pain (acute) (chronic); E43 Unspecified severe protein-calorie malnutrition; S32.028A Other fracture of second lumbar vertebra, initial encounter for closed fracture; N13.1 Hydronephrosis with ureteral stricture, not elsewhere classified; C78.00 Secondary malignant neoplasm of unspecified lung; F17.200 Nicotine dependence, unspecified, uncomplicated; K44.9 Diaphragmatic hernia without obstruction or gangrene; Z96.0 Presence of urogenital implants; C67.9 Malignant neoplasm of bladder, unspecified; Z66 Do not resuscitate; E11.9 Type 2 diabetes mellitus without complications; Z79.4 Long term (current) use of insulin; Z79.84 Long term (current) use of oral hypoglycemic drugs; R53.1 Weakness; Z68.35 Body mass index [BMI] 35.0-35.9, adult; F17.210 Nicotine dependence, cigarettes, uncomplicated; N35.912 Unspecified bulbous urethral stricture, male; H91.93 Unspecified hearing loss, bilateral; I10 Essential (primary) hypertension; Z79.82 Long term (current) use of aspirin; K59.00 Constipation, unspecified; X58.XXXA Exposure to other specified factors, initial encounter
CPT/HCPCS: 36415; 51700; 71260; 74178; 80048; 80053; 81001; 83036; 83735; 84100; 85025; 93005; 96361; 96374; 96375; 97162; 97166; 99285; A9270; J1170; J1815; J7120; Q9967; 81003; 87086; Q9966

== ENCOUNTER 2023-06-04 09:44 | Outpatient (CLI) | payer MEDICARE, MEDICAID | END 2023-06-04 09:45 | disposition critical access hospital (66) | LOC: EMS 09:44 | DX: R31.0 Gross hematuria (principal); R35.0 Frequency of micturition; R39.89 Other symptoms and signs involving the genitourinary system; R10.814 Left lower quadrant abdominal tenderness; C67.9 Malignant neoplasm of bladder, unspecified | CPT/HCPCS: A0425; A0429 ==

== ENCOUNTER 2023-06-04 10:01 | Emergency (ER) | payer MEDICARE, MEDICAID ==
--- NOTE | 2023-06-04 10:11 | ED Physician Documentation ---
PD HPI MALE - Stated complaint Stated Complaint: - History obtained from History obtained from: Patient, EMS - History of Present Illness Timing - onset: Yesterday Timing - duration: Days Timing - details: Gradual onset, Still present, Waxing and waning Associated symptoms: Hematuria. 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 referred to Palliative/Hospice on recent admission/discharge.) Recently seen: Admitted Review of Systems Constitutional: denies: Fever, Chills Respiratory: denies: Dyspnea, Cough GI: reports: Constipation. denies: Diarrhea : reports: Unable to Void (feeling of needing to urinate.), Hematuria PD PAST MEDICAL HISTORY - Past Medical History Cardiovascular: Hypertension, High cholesterol Respiratory: Other Neuro: None Endocrine/Autoimmune: Type 2 diabetes GI: Chronic constipation, Hemorrhoids : Kidney stones, Other (bladder metastatic cancer. ) HEENT: Chronic vision loss, Chronic hearing loss Psych: None Musculoskeletal: Other Derm: None - Past Surgical History Past Surgical History: Yes General: Colonoscopy, Other - Present Medications Home Medications: Ambulatory Orders Medication Instructions Recorded Confirmed Aspirin [Aspir 81] 81 mg PO DAILY 02/20/15 06/04/23 Docusate Sodium 100 mg PO BID 02/20/15 06/04/23 Lisinopril 20 mg PO DAILY 02/20/15 06/04/23 Atorvastatin [Lipitor] 20 mg PO QPM 04/03/23 06/04/23 Insulin Glargine [Lantus Solostar] 45 units SUBQ HS 04/03/23 06/04/23 Ipratropium/Albuterol [Combivent 1 puffs INH Q6HR PRN 04/03/23 06/04/23 Respimat] Empagliflozin [Jardiance] 10 mg PO DAILY 05/18/23 06/04/23 Amlodipine Besylate [Norvasc] 10 mg PO DAILY 05/24/23 06/04/23 Docusate Sodium 100Mg Capsule 100 mg PO DAILY #20 cap 06/04/23 [Colace 100Mg Capsule] Meloxicam [Mobic] 7.5 mg PO BID 10 Days #20 tablet 06/04/23 Tranexamic Acid 650 mg PO TID #30 tablet 06/04/23 oxyCODONE [Roxicodone] 5 mg PO TID #20 tablet 06/04/23 - Allergies Allergies/Adverse Reactions: Allergies Allergy/AdvReac Type Severity Reaction Status Date / Time Penicillins Allergy Severe Rash Verified 06/04/23 10:12 felisa Allergy throat Verified 06/04/23 10:12 swells passion fruit Allergy Unknown Verified 06/04/23 10:12 guava Allergy throat Uncoded 06/04/23 10:12 swells papaya Allergy throat Uncoded 06/04/23 10:12 swells - Social History Does the pt smoke?: Yes Smoking Status: Current every day smoker Does the pt drink ETOH?: No Does the pt have substance abuse?: No - Immunizations Immunizations are current?: Yes - POLST Patient has POLST: No PD ED PE NORMAL - Vitals Vital signs reviewed: Yes - General General: Alert and oriented X 3, No acute distress, Well developed/nourished - Abdomen Abdomen: Normal bowel sounds, Soft, Non distended, No organomegaly, Other (tender suprapubic area without fullness. ) Results - Vitals Vitals: Vital Signs - 24 hr 06/04/23 06/04/23 10:07 12:12 Temperature 36.1 C L Heart Rate 93 86 Respiratory 22 15 Rate Blood Pressure 136/77 H 125/85 H O2 Saturation 96 95 Oxygen O2 Source Room air - Labs Labs: Laboratory Tests 06/04/23 06/04/23 10:22 10:22 WBC 27.5 H RBC 4.14 L Hgb 10.1 L Hct 32.4 L MCV 78.3 L MCH 24.4 L MCHC 31.2 L RDW 17.3 H Plt Count 570 H MPV 8.9 Neut # (Auto) 23.9 H Lymph # (Auto) 1.7 [place] # (Auto) 1.3 H Eos # (Auto) 0.0 Baso # (Auto) 0.1 Absolute Nucleated RBC 0.00 Nucleated RBC % 0.0 Manual Slide Review Indicated Platelet Estimate INCREASED (>450,000) Platelet Morphology NORMAL APPEARANCE RBC Morph Micro Appear NORMAL APPEARANCE Sodium 137 Potassium 3.7 Chloride 103 Carbon Dioxide 25 Anion Gap 9.0 BUN 23 H Creatinine 0.8 Estimated GFR (MDRD) 93 Glucose 282 H Calcium 10.6 H Magnesium 1.8 Total Bilirubin 0.4 AST 14 ALT 19 Alkaline Phosphatase 56 Total Protein 6.1 L Albumin 2.7 L Globulin 3.4 Albumin/Globulin Ratio 0.8 L Lipase 16 PD Medical Decision Making - ED course Complexity details: reviewed results (bladder scanner showing minimal urine in the bladder, so appears to be emptying. ), considered differential, d/w patient, d/w learning consultant (Dr. Fabian, Urology, with synopsis of the pt case and that the tumor will bleed regularly. No particular intervention unless he has clots that are blocking outflow. ) ED course: The patient has been treated for the hematuria. He had had stent placed to allow drainage through the left ureter which was partly blocked due to tumor. His kidney function appears at baseline at this time. Bladder scanner showed a minimal amount of urine in the bladder so no signs of outlet obstruction. He is having hematuria more than usual but his blood count is stable. His white count is a bit elevated. I talked with Fred Fabian, urology and he states there is no particular treatment at this time. If he does obstruct from clots then a catheter could be placed. Otherwise expectation is hematuria due to the tumor and the patient was going to hospice level of care. He has not heard from hospice as of yet. A consult has been placed. At this point would have the patient continue on his usual medications. I talked with him and we could add TXA orally to see if that helps reduce the amount of bleeding for comfort anyway. Otherwise pain medicine and I can prescribe him some more. I will send prescription to his preferred pharmacy. Departure - Departure Disposition: 01 Home, Self Care Clinical Impression: Hematuria, Bladder cancer metastasized to bone, Back pain Condition: Stable Record reviewed to determine appropriate education?: Yes Prescriptions: Docusate Sodium 100Mg Capsule [Colace 100Mg Capsule] 100 mg PO DAILY #20 cap Meloxicam [Mobic] 7.5 mg PO BID 10 Days #20 tablet oxyCODONE [Roxicodone] 5 mg PO TID #20 tablet Tranexamic Acid 650 mg PO TID #30 tablet Comments: I took with the urologist who states the expectation is to have blood in the urine because of the tumor which will likely bleed to varying amounts. There is no signs of it forming clots that are blocking the outflow from your bladder so we can try to reduce the amount of bleeding with a medication called tranexamic acid that reduces bleeding (promotes clotting). We can help with pain with the use of some anti-inflammatories. Try to stay well-hydrated. Use Tylenol 500 to 650 mg 4 times daily for pain. To that add oxycodone every 6-8 hours if needed. I sent prescriptions to your preferred pharmacy. Follow-up with your primary care in also you had been in referred to palliative care/hospice on your recent hospitalization. Follow-up with them. I am prescribing a short course of narcotic pain medication for you. These are potentially dangerous and addictive medications that should be used carefully. These medications may constipate you. Take an [id number] stool softener such as docusate twice daily with plenty of water while taking these medications. If you go 24 hours without a bowel movement, take [id number] MiraLAX, per package instructions. Do not drink or drive while taking these medications. If you received narcotic or sedating medications while in the emergency department do not drive for 24 hours. Store this medication in a safe, secure place and out of reach of children. It is a violation of federal law to give or sell this medication to another person or to use in a manner other than prescribed. The ED will not refill narcotic prescriptions, including prescriptions lost or stolen. You can dispose of unwanted medications at the [facility]'s office or at several pharmacies such as [facility]. Forms: PCP List Discharge Date/Time: 06/04/23 13:34
[2023-06-04] MEDS: SODIUM CHLORIDE 0.9% 1,000 ML IV STA (10:24)
[2023-06-04] MEDS: KETOROLAC 15 MG/ML VIAL IVP STA (10:26)
[2023-06-04 10:29] LABS: BASOPHILS # (AUTO) 0.1 10^3/uL (0.0-0.1); BASOPHILS % (AUTO) 0.2 %; HCT - HEMATOCRIT 32.4 % (42.0-52.0); HGB - HEMOGLOBIN 10.1 g/dL (14.0-18.0); LYMPHOCYTES # (AUTO) 1.7 10^3/uL (1.5-3.5); LYMPHOCYTES % (AUTO) 6.1 %; MEAN CORPUSCULAR HEMOGLOBIN 24.4 pg (27.0-31.0); MEAN CORPUSCULAR HGB CONC 31.2 g/dL (32.0-36.0); MEAN CORPUSCULAR VOLUME 78.3 fL (80.0-94.0); MEAN PLATELET VOLUME 8.9 fL (7.4-11.4); MONOCYTES # (AUTO) 1.3 10^3/uL (0.0-1.0); MONOCYTES % (AUTO) 4.8 %; NEUTROPHILS # (AUTO) 23.9 10^3/uL (1.5-6.6); NEUTROPHILS % (AUTO) 86.9 %; PLT - PLATELET COUNT 570 10^3/uL (130-450); RED BLOOD COUNT 4.14 10^6/uL (4.70-6.10); RED CELL DISTRIBUTION WIDTH 17.3 % (12.0-15.0); WHITE BLOOD COUNT 27.5 x10^3/uL (4.8-10.8)
[2023-06-04 10:35] LABS: SLIDE REVIEW? Indicated
[2023-06-04] MEDS: BISACODYL 10 MG SUPP PR STA (10:36)
[2023-06-04] MEDS ORDERED: TRANEXAMIC ACID 1,000 MG in SODIUM CHLORIDE 0.9% 100ML 100 ML IV STA (10:36)
[2023-06-04] MEDS: HYDROmorphone 1 MG/ML CARPUJECT IVP STA (10:36)
[2023-06-04 10:42] LABS: ALBUMIN 2.7 g/dL (3.2-5.5); ALBUMIN/GLOBULIN RATIO 0.8 (1.0-2.2); BILIRUBIN,TOTAL 0.4 mg/dL (0.2-1.0); CALCIUM 10.6 mg/dL (8.5-10.3); CREATININE 0.8 mg/dL (0.6-1.3); MAGNESIUM 1.8 mg/dL (1.7-2.3); POTASSIUM 3.7 mmol/L (3.5-4.5); TOTAL PROTEIN 6.1 g/dL (6.4-8.9)
[2023-06-04] MEDS: TRANEXAMIC ACID IN NACL 1,000 MG/100 ML BAG IV STA (10:44)
[2023-06-04 10:52] LABS: PLATELET MORPHOLOGY NORMAL APPEARANCE (NORMAL)
[2023-06-04 10:53] LABS: PLATELET ESTIMATE, MANUAL INCREASED (>450,000) (NORMAL); RBC MORPHOLOGY (MULTIPLE) NORMAL APPEARANCE (NORMAL)
[2023-06-04 13:02] VITALS: BP 125/85; O2SAT 95
== END 2023-06-04 13:34 | disposition home or self-care (01) ==
LOC: EDUNIT# → ED 10:01
DX: R31.9 Hematuria, unspecified (principal); C67.9 Malignant neoplasm of bladder, unspecified; C79.51 Secondary malignant neoplasm of bone; E11.9 Type 2 diabetes mellitus without complications; I10 Essential (primary) hypertension; Z79.4 Long term (current) use of insulin; F17.200 Nicotine dependence, unspecified, uncomplicated
CPT/HCPCS: 36415; 80053; 83690; 83735; 85025; 96365; 96375; 99284; A9270; J1170

== ENCOUNTER 2023-06-04 23:24 | Outpatient (CLI) | payer MEDICARE, MEDICAID | END 2023-06-04 23:59 | disposition EMS.NT | LOC: EMS 23:24 | DX: R31.0 Gross hematuria (principal) ==

== ENCOUNTER 2023-06-06 09:36 | Outpatient (CLI) | payer MEDICARE, MEDICAID | END 2023-06-06 09:37 | disposition EMS.NT | LOC: EMS 09:36 | DX: G89.3 Neoplasm related pain (acute) (chronic) (principal) ==

== ENCOUNTER 2023-06-06 21:30 | Outpatient (CLI) | payer MEDICARE, MEDICAID | END 2023-06-06 21:31 | disposition critical access hospital (66) | LOC: EMS 21:30 | DX: R53.1 Weakness (principal); K92.1 Melena; R31.0 Gross hematuria | CPT/HCPCS: A0425; A0427 ==

== ENCOUNTER 2023-06-06 21:50 | Inpatient (IN) | payer MEDICARE, MEDICAID ==
--- NOTE | 2023-06-06 21:54 | ED Physician Documentation ---
PD HPI Fall - Stated complaint Stated Complaint: FALL - History obtained from History obtained from: Patient, EMS - Additional information Additional information: YONATHAN. Patient tells me that he fell tonight at home when he was trying to get out of bed to go to the bathroom. Patient tells me he lost his balance causing him to fall to the floor. He denies head injury, denies LOC. However, he says he laid on the floor for at least 30 minutes due to being too weak to get back up. Eventually someone came to check on him, found him on the floor, and called 911. Patient is occasionally moaning in what sounds like pain although, on my HPI, he tells me he is not having any pain anywhere. Patient was treated and released from this emergency department 2 days ago (the ) and was inpatient earlier this month. These visits were both related to underlying complications related to a bladder tumor which is causing left-sided ureteral compression. For this, a left ureteral stent has been placed and was recently changed. He has had both chest and abdominal/pelvic CT scans recently which show multiple, rapidly-enlarging pulmonary metastases. This patient reportedly lives alone. I see a note from hospice that was entered into the computer earlier this month during inpatient stay; this note indicates a poor prognosis overall, and that hospice was recommended to the patient but the patient would not commit to this option. This note also reflects that the patient was scheduled to see an oncologist but decided to not meet with the oncologist and the same note indicates the patient is not wanting any aggressive treatment. PD PAST MEDICAL HISTORY - Past Medical History Cardiovascular: Hypertension, High cholesterol Respiratory: Other Neuro: None Endocrine/Autoimmune: Type 2 diabetes GI: Chronic constipation, Hemorrhoids : Kidney stones, Other (bladder metastatic cancer. ) HEENT: Chronic vision loss, Chronic hearing loss Psych: None Musculoskeletal: Other Derm: None - Past Surgical History Past Surgical History: Yes General: Colonoscopy, Other - Present Medications Home Medications: Ambulatory Orders Medication Instructions Recorded Confirmed Aspirin [Aspir 81] 81 mg PO DAILY 02/20/15 06/06/23 Docusate Sodium 100 mg PO BID 02/20/15 06/06/23 Lisinopril 20 mg PO DAILY 02/20/15 06/06/23 Atorvastatin [Lipitor] 20 mg PO QPM 04/03/23 06/06/23 Insulin Glargine [Lantus Solostar] 45 units SUBQ HS 04/03/23 06/06/23 Ipratropium/Albuterol [Combivent 1 puffs INH Q6HR PRN 04/03/23 06/06/23 Respimat] Empagliflozin [Jardiance] 10 mg PO DAILY 05/18/23 06/06/23 Amlodipine Besylate [Norvasc] 10 mg PO DAILY 05/24/23 06/06/23 Docusate Sodium 100Mg Capsule 100 mg PO DAILY #20 cap 06/04/23 06/06/23 [Colace 100Mg Capsule] Meloxicam [Mobic] 7.5 mg PO BID 10 Days #20 tablet 06/04/23 06/06/23 Tranexamic Acid 650 mg PO TID #30 tablet 06/04/23 06/06/23 oxyCODONE [Roxicodone] 5 mg PO TID #20 tablet 06/04/23 06/06/23 - Allergies Allergies/Adverse Reactions: Allergies Allergy/AdvReac Type Severity Reaction Status Date / Time Penicillins Allergy Severe Rash Verified 06/06/23 21:56 felisa Allergy throat Verified 06/06/23 21:56 swells passion fruit Allergy Unknown Verified 06/06/23 21:56 guava Allergy throat Uncoded 06/06/23 21:56 swells papaya Allergy throat Uncoded 06/06/23 21:56 swells - Social History Does the pt smoke?: Yes Smoking Status: Current every day smoker Does the pt drink ETOH?: No Does the pt have substance abuse?: No - Immunizations Immunizations are current?: Yes - POLST Patient has POLST: No PD ED PE NORMAL - Vitals Vital signs reviewed: Yes - General General: Alert and oriented X 3, Well developed/nourished, Other (patient intermittently calling out for help although invariably relatively trivial requests compared to his yelling loudly for help (such as asking for mouth swabs or to have his feet covered); despite sounding as if in pain, he consistently denies pain) - HEENT HEENT: Atraumatic, PERRL, Other (dry mucous membranes) - Neck Neck: Supple, no meningeal sign - Cardiac Cardiac: RRR - Respiratory Respiratory: No respiratory distress, Other (scattered bilateral rhonchi) - Abdomen Abdomen: Soft, Non distended, Other (mild TTP suprapbubic and, to lesser extent, BLQ; no rebound nor guarding) - Derm Derm: Normal color - Neuro Neuro: Other (speech is slurred, making it frequently difficulty to understand him (although with repetition, I eventually do understand what he says)) Results - Vitals Vitals: Vital Signs - 24 hr 06/06/23 06/06/23 06/07/23 21:56 22:00 00:00 Temperature 36.8 C 36.8 C Heart Rate 90 90 68 Respiratory 22 22 18 Rate Blood Pressure 136/64 H 136/64 H 135/72 H O2 Saturation 92 92 93 If not protocol : Oxygen Flow, liters/minute 06/07/23 02:00 Temperature Heart Rate 95 Respiratory 20 Rate Blood Pressure 127/61 O2 Saturation 95 If not protocol 2 : Oxygen Flow, liters/minute Oxygen O2 Source Nasal cannula - Labs Labs: Laboratory Tests 06/06/23 06/06/23 23:04 23:04 WBC 31.9 H RBC 3.57 L Hgb 8.4 L Hct 27.8 L MCV 77.9 L MCH 23.5 L MCHC 30.2 L RDW 18.0 H Plt Count 424 MPV 9.2 Neut # (Auto) 28.3 H Lymph # (Auto) 1.1 L [place] # (Auto) 1.8 H Eos # (Auto) 0.0 Baso # (Auto) 0.1 Absolute Nucleated RBC 0.00 Band Neuts % (Manual) Not Reportable Abnorm Lymph % (Manual) Not Reportable Nucleated RBC % 0.0 Neutrophils # (Manual) Not Reportable Lymphocytes # (Manual) Not Reportable Monocytes # (Manual) Not Reportable Eosinophils # (Manual) Not Reportable Basophils # (Manual) Not Reportable Differential Comment MANUAL=AUTO DIFF Manual Slide Review Indicated Platelet Estimate NORMAL (130-450,000) Platelet Morphology NORMAL APPEARANCE RBC Morph Micro Appear 2+ HYPOCHROMASIA Sodium 134 L Potassium 4.3 Chloride 105 Carbon Dioxide 21 Anion Gap 8.0 BUN 69 H Creatinine 3.7 H Estimated GFR (MDRD) 16 L Glucose 284 H Calcium 9.8 Total Bilirubin 0.4 AST 9 L ALT 13 Alkaline Phosphatase 52 Total Protein 5.2 L Albumin 2.3 L Globulin 2.9 Albumin/Globulin Ratio 0.8 L Lipase 16 - Rads (name of study) CT A/P without contrast Relevant Findings:: Prelim report reviewed, See rad report PD Medical Decision Making - ED course Complexity details: reviewed old records, reviewed results, re-evaluated patient, considered differential, d/w patient ED course: Marked leukocytosis noted with white blood cell count of 31.9; previous (June 04) was 27.5. Hemoglobin 8.4, previous 10.1. The most striking finding, particularly in regards to change from his previous labs, it is a creatinine of 3.7 which was 0.8 just 2 days prior. BUN is 69, was 23. CT scan of the abdomen and pelvis without contrast shows that the left ureteral stent is in proper position, persistent left hydro ureteral nephrosis. There is increased prominence of the right hydronephrosis as well as mild right hydroureter. There is a new heterogeneous hyperdense material within the urinary bladder most consistent with hemorrhagic products. The multiple pulmonary metastases noted on the study earlier this month are, of course, still present but these have progressed in size and prominence. There is an acute- appearing comminuted posterior left 11th rib fracture with an overlying hematoma, likely due to his fall tonight. Although patient does not answer orientation questions x 3 rapidly and accurately, his cognition is quite questionable; he repeatedly denies having any pain despite repeatedly calling out and what very much sounds like painful distress, and when I ask him what is wrong (on multiple occasions), as noted above, he invariably says he is yelling for "trivial reason such as his feet not being covered with a blanket, his mouth being dry and eating more swabs. He asks me for a mask because he is coughing, and then immediately wants it taken off without explaining his reasoning. He does not have any urine output during ED stay until a catheter was placed. Despite this, he says he does not have any urge to urinate. As noted above, the CT scan shows (amongst many concerning abnormalities) what appears to be a very large amount of blood, possibly clots, within the bladder. I discussed this patient and his current presentation and test results with the [id number] urologist for [facility] (Dr. Fabian). This patient is familiar to Dr. Fabian. He recommends placing a catheter, specifically a 22-Arabic 3-way catheter. Per our discussion, this patient is not to receive CBI until and unless there is confidence that all clots have been evacuated from the bladder. Dr. Fabian says that patient's abnormal BUN and creatinine (from normal values 2 days ago) is likely due to bladder outlet obstruction (due to blood clots). ED RN places this catheter without any difficulty or resistance. To facilitate catheter placement, and considering patient sounds very much like he is having painful stress, he is given 1 mg of Dilaudid IV; this did seem to quite significantly decrease the frequency and volume of the patient's yelling and calling out for help. Unfortunately, there was no urine output after placement of the catheter. Furthermore, multiple attempts to hand-irrigate the catheter (using Marilin syringe and sterile water) resulted in inadequate output into the collection bag. The output was grossly bloody, there were a few small clots noted, but after 250 cc total of input through the catheter, only 150 cc had returned. I got back in touch with Dr. Fabian to update him and he asks that patient be kept n.p.o. with plan to take him to OR later this morning or early afternoon. I discussed this case with [facility] [employer] and he is then admitted to [facility] hospitalist service. Patient did have approximately 50-75cc bloody UO into collection / keith bag in addition to the 150 noted above. Departure - Departure Disposition: 66 [facility] DC/Xfer Clinical Impression: OLVIN (acute kidney injury), Gross hematuria, Bladder outlet obstruction Rib fracture Qualifiers: Encounter type: initial encounter Rib fracture type: single rib Fracture type: closed Laterality: left Qualified Code(s): S22.32XA - Fracture of one rib, left side, initial encounter for closed fracture Condition: Fair Discharge Date/Time: 06/07/23 04:38
[2023-06-06] MEDS: SODIUM CHLORIDE 0.9% 1,000 ML IV STA (23:00)
[2023-06-06 23:09] LABS: BASOPHILS # (AUTO) 0.1 10^3/uL (0.0-0.1); BASOPHILS % (AUTO) 0.2 %; EOSINOPHILS % (AUTO) 0.1 %; HCT - HEMATOCRIT 27.8 % (42.0-52.0); HGB - HEMOGLOBIN 8.4 g/dL (14.0-18.0); LYMPHOCYTES # (AUTO) 1.1 10^3/uL (1.5-3.5); LYMPHOCYTES % (AUTO) 3.4 %; MEAN CORPUSCULAR HEMOGLOBIN 23.5 pg (27.0-31.0); MEAN CORPUSCULAR HGB CONC 30.2 g/dL (32.0-36.0); MEAN CORPUSCULAR VOLUME 77.9 fL (80.0-94.0); MEAN PLATELET VOLUME 9.2 fL (7.4-11.4); MONOCYTES # (AUTO) 1.8 10^3/uL (0.0-1.0); MONOCYTES % (AUTO) 5.6 %; NEUTROPHILS # (AUTO) 28.3 10^3/uL (1.5-6.6); NEUTROPHILS % (AUTO) 88.7 %; PLT - PLATELET COUNT 424 10^3/uL (130-450); RED BLOOD COUNT 3.57 10^6/uL (4.70-6.10); WHITE BLOOD COUNT 31.9 x10^3/uL (4.8-10.8)
[2023-06-06 23:26] LABS: ALBUMIN 2.3 g/dL (3.2-5.5); ALBUMIN/GLOBULIN RATIO 0.8 (1.0-2.2); BILIRUBIN,TOTAL 0.4 mg/dL (0.2-1.0); CALCIUM 9.8 mg/dL (8.5-10.3); CREATININE 3.7 mg/dL (0.6-1.3); POTASSIUM 4.3 mmol/L (3.5-4.5); TOTAL PROTEIN 5.2 g/dL (6.4-8.9)
[2023-06-06 23:31] LABS: SLIDE REVIEW? Indicated
[2023-06-06 23:55] LABS: DIFFERENTIAL COMMENT MANUAL=AUTO DIFF; PLATELET ESTIMATE, MANUAL NORMAL (130-450,000) (NORMAL); PLATELET MORPHOLOGY NORMAL APPEARANCE (NORMAL)
--- NOTE | 2023-06-07 00:49 | CT Report ---
PROCEDURE: Abdomen/Pelvis WO INDICATIONS: OLVIN, recent ureteral stent TECHNIQUE: A CT scan of the abdomen and pelvis was performed without the use of intravenous contrast. Images we re recorded and evaluated at appropriate window settings. Reformats: coronal and sagittal. For radiat ion dose reduction, the following was used: automated exposure control, adjustment of mA and/or kV ac cording to patient size. COMPARISON: 05/23/2023, 04/03/2023. FINDINGS: Image quality: Diagnostic. Lower chest: Bibasilar atelectasis. Numerous bilateral lower lobe and inferior left upper lobe pulmon ike nodules are redemonstrated. Some demonstrate interval increase in size which again is consistent with aggressive pulmonary metastases. Comminuted posterior left 11th rib fracture with overlying cont usion/hematoma.. Liver: No contour-deforming mass. Gallbladder and biliary tree: Mild gallbladder wall thickening. Tiny densities seen on image 71/serie s 2 may represent artifact versus possible small gallstone. Spleen: No splenomegaly. Pancreas: No pancreatic ductal dilation. Adrenals: No adrenal nodule. Kidneys and ureters: Left ureteral stent remains in place. Left hydronephrosis and left hydroureter n ot significantly changed. Interval worsening of right hydronephrosis. No perinephric stranding. No ob structing renal stones. There is asymmetric wall thickening of the left urinary bladder consistent wi th known neoplasm. Heterogeneously, hyperdense material noted within the dependent two thirds of the urinary bladder, new compared to the prior study. Findings are consistent with hemorrhagic products. Stomach, bowel and peritoneum: No bowel distension. No pathologic free fluid. Lymph nodes: No central or retroperitoneal adenopathy. Vessels: No infrarenal aortic aneurysm. PELVIS Reproductive organs: Unremarkable. Bladder: Asymmetric wall thickening of the left urinary bladder measuring up to 2.5 cm in thickness a s before. This is not as well evaluated given lack of intravenous contrast. Pelvic lymph nodes: No pelvic adenopathy by size criteria. Bones: No aggressive osseous abnormality. No acute compression fracture. Other: No significant ventral or inguinal hernia. IMPRESSION: 1. Left ureteral stent remains in place with persistent left hydroureteronephrosis. 2. Increased prominence of right hydronephrosis and mild right hydroureter. 3. New heterogeneous hyperdense material within the urinary bladder most consistent with hemorrhagic products. Persistent irregular left urinary bladder wall thickening consistent with urinary bladder n eoplasm. 4. Continued interval progression in size and prominence of multiple pulmonary metastases consistent with aggressive pulmonary metastatic lesions. 5. Comminuted posterior left 11th rib fracture with overlying hematoma. Reviewed by: Gonsalo Sofia MD on 06/07/2023 12:47 AM PST Approved by: Gonsalo Sofia MD on 06/07/2023 12:47 AM PST Station ID: [id number]
[2023-06-07] MEDS: SODIUM CHLORIDE 0.9% 1,000 ML IV STA (01:36)
[2023-06-07] MEDS: HYDROmorphone 1 MG/ML CARPUJECT IVP STA (01:36)
--- NOTE | 2023-06-07 03:25 | HISTORY & PHYSICAL EXAMINATION ---
Chief Complaint - Chief Complaint Chief Complaint: Fall History of Present Illness - Admitted From Admitted From:: ER - History Obtained From Records Reviewed: Yes History obtained from: Patient, staff, chart Exam Limitations: Virtual exam - History of Present Illness HPI Comment/Other: H&P was conducted via video remotely, using Access Cart. Patient is in OR. Physician is in OR. No one is at bedside. History is limited d/t pt's drowsiness. 77 yo M with PMH of bladder cancer with pulmonary metastases, hydronephrosis wi th obstructed ureters s/p stents, severe pain, HTN, HLD, DM type 2, tobacco use, Weakness, malnutrition presented to the ER via EMS s/p Fall. Pt was hospitalized at [facility] from 05/23-05/28/23 for Hydronephrosis and cancer-related pain. Pt has declined aggressive treatment for his cancer, but has also declined Hospice care. Tonight, pt got out of bed to go to the bathroom, lost his balance and fell to the floor. He could not get up and lied there for 30 minutes before someone checked on him and found him and called EMS. Pt is drowsy s/p pain medications, says that he still has some pain, but cannot give any details. Unable to obtain any other information from him. In the ER, WBC 31.9, Hgb 8.4, MCV 77.9, CR 3.7, Na 134, Gcl 284 CT Chest/Abdo: 11th rib comminuted fracture, irreg mass bladder wall, R HN, L Hydroureteronephrosis, clots ER Physician D/W Urologist who recommended 3 way Herbert (this was placed and clots were drained out), admit, NPO and they will take pt to OR later today. Pt was given IVF, Dilaudid in the ER. History - Past Medical History Cardiovascular: reports: Hypertension, High cholesterol Respiratory: reports: Other Neuro: reports: None Endocrine/Autoimmune: reports: Type 2 diabetes GI: reports: Chronic constipation, Hemorrhoids : reports: Kidney stones, Other (bladder metastatic cancer. ) HEENT: reports: Chronic vision loss, Chronic hearing loss Psych: reports: None Musculoskeletal: reports: Other Derm: reports: None MRSA Hx?: No Other Past Medical History: Bladder CA with METS - Past Surgical History General: reports: Colonoscopy, Other - POLST Patient has POLST: No Meds/Allgy - Home Medications Home Medications: Ambulatory Orders Medication Instructions Recorded Confirmed Aspirin [Aspir 81] 81 mg PO DAILY 02/20/15 06/06/23 Docusate Sodium 100 mg PO BID 02/20/15 06/06/23 Lisinopril 20 mg PO DAILY 02/20/15 06/06/23 Atorvastatin [Lipitor] 20 mg PO QPM 04/03/23 06/06/23 Insulin Glargine [Lantus Solostar] 45 units SUBQ HS 04/03/23 06/06/23 Ipratropium/Albuterol [Combivent 1 puffs INH Q6HR PRN 04/03/23 06/06/23 Respimat] Empagliflozin [Jardiance] 10 mg PO DAILY 05/18/23 06/06/23 Amlodipine Besylate [Norvasc] 10 mg PO DAILY 05/24/23 06/06/23 Docusate Sodium 100Mg Capsule 100 mg PO DAILY #20 cap 06/04/23 06/06/23 [Colace 100Mg Capsule] Meloxicam [Mobic] 7.5 mg PO BID 10 Days #20 tablet 06/04/23 06/06/23 Tranexamic Acid 650 mg PO TID #30 tablet 06/04/23 06/06/23 oxyCODONE [Roxicodone] 5 mg PO TID #20 tablet 06/04/23 06/06/23 - Allergies Allergies/Adverse Reactions: Allergies Allergy/AdvReac Type Severity Reaction Status Date / Time Penicillins Allergy Severe Rash Verified 06/06/23 21:56 felisa Allergy throat Verified 06/06/23 21:56 swells passion fruit Allergy Unknown Verified 06/06/23 21:56 guava Allergy throat Uncoded 06/06/23 21:56 swells papaya Allergy throat Uncoded 06/06/23 21:56 giannis Review of Systems - All Other Systems All Other Systems: reports: Other (Unable to obtain d/t patient's clinical condition) Exam - Vital Signs Reviewed Vital Signs: Yes Vital Signs: Vital Signs x48h Temp Pulse Resp BP Pulse Ox O2 Flow Rate 06/07/23 02:00 95 20 127/61 95 2 06/07/23 00:00 68 18 135/72 H 93 06/06/23 22:00 36.8 C 90 22 136/64 H 92 06/06/23 21:56 36.8 C 90 22 136/64 H 92 - Physical Exam General Appearance: positive: No acute distress, Other (Drowsy) Eyes Bilateral: positive: EOMI, No scleral icterus ENT: positive: Dry mucous membranes Respiratory: positive: Other (Access cart stethoscope not working; per ER Provider: CTA B/L, Chest +TTP) Cardiovascular: positive: Other (RRR, no murmurs) Abdomen: positive: Other (per ER Provider: non-distended, NT, Soft, +Herbert with hematuria) Neurologic/Psychiatric: positive: Other (Drowsy s/p pain meds; per ER Provider: A+Ox3 earlier with NFD) Conclusion/Plan - Problem List (1) Bladder outlet obstruction Conclusion/Plan: Acute Renal Failure Hyponatremia Bladder cancer with pulmonary metastases Hydronephrosis with obstructed ureters s/p stents Cancer pain Leukocytosis Anemia, microcytic -WBC 31.9, Hgb 8.4, MCV 77.9, CR 3.7 (baseline normal), Na 134 -CT Abdo: irreg mass bladder wall, R HN, L Hydroureteronephrosis, clots -ER Physician D/W Urologist who recommended 3 way Herbert (this was placed and clots were drained out), admit, NPO and they will take pt to OR later today. -Pt was given IVF, Dilaudid in the ER. -admit to Med Surg -NPO -pain control -IVF -continue home medications: Oxycodone -hold home medications: Lisinopril, ASA, Lantus -avoid nephrotoxins -mgmt per Urologist -check iron studies -if pt amenable, may need to reconsult palliative care S/P GLF Rib Fracture Weakness -CT Chest: 11th rib comminuted fracture -pain control -PT/OT eval HTN HLD -continue home medications: Amlodipine, statin -hold home medications: ASA d/t upcoming procedure, Lisinopril d/t ARF DM type 2 -Glc 284 -accuchecks, SS Insulin, Hypoglycemic protocol -hold home medications: Lantus d/t NPO, Jardiance -check Hgba1c Tobacco use -cessation counseling VTE Prophylaxis: SCDs only d/t upcoming procedure Code Status: D/W pt; confirmed DNR/DNI ~Geri Mccall MD Hospitalist - Lab Results Lab results reviewed: Yes Fish Bones: 06/06/23 23:04 06/06/23 23:04
[2023-06-07] MEDS ORDERED: SODIUM CHLORIDE FLUSH 0.9% 10 ML SYRINGE IVP PRN (03:50)
[2023-06-07] MEDS ORDERED: ONDANSETRON 4 MG/2 ML VIAL IVP PRN ×3 (03:50→17:42)
[2023-06-07] MEDS ORDERED: SODIUM CHLORIDE 0.9% 1,000 ML IV SCH (04:00)
[2023-06-07 04:21] LABS: BILIRUBIN,URINE MODERATE (NEGATIVE); GLUCOSE, URINE (UA) 250 mg/dL (NEGATIVE); KETONES,URINE (UA) 15 mg/dL (NEGATIVE); LEUKOCYTE ESTERASE, URINE MODERATE (NEGATIVE); NITRITE,URINE POSITIVE (NEGATIVE); OCCULT BLOOD,URINE LARGE (NEGATIVE); PH,URINE 6.5 PH (5.0-7.5); PROTEIN,URINE >=300 mg/dL (NEGATIVE); UROBILINOGEN,URINE 4 E.U./dL (NORMAL)
[2023-06-07 04:23] LABS: CLARITY,URINE TURBID (CLEAR)
[2023-06-07 04:32] LABS: RBC,URINE TNTC /HPF (0-5)
[2023-06-07 04:34] LABS: BACTERIA,URINE Moderate /HPF (None Seen); SQUAMOUS EPITHELIAL CELL,UR RARE Squamous (<= Few)
[2023-06-07] MEDS: oxyCODONE 5 MG TABLET PO SCH (05:15)
[2023-06-07 05:45] LABS: IRON < 10 ug/dL (50-212); TOTAL IRON BINDING CAPACITY 171 ug/dL (250-450); TRANSFERRIN 122 mg/dL (203-362)
[2023-06-07] MEDS: HYDROmorphone 0.5 MG/0.5 ML SYRINGE IVP PRN (05:46)
[2023-06-07] MEDS: INSULIN REGULAR HUMAN 300 UNIT/3 ML VIAL SUBQ SCH ×2 (09:03→18:28)
[2023-06-07] MEDS: SODIUM CHLORIDE FLUSH 0.9% 10 ML SYRINGE IVP SCH (09:07)
[2023-06-07] MEDS: amLODIPine 5 MG TABLET PO SCH (09:07)
[2023-06-07] MEDS: INSULIN LISPRO 300 UNIT/3 ML PEN SUBQ SCH (09:52)
[2023-06-07 09:59] LABS: ESTIMATED AVERAGE GLUCOSE 192 mg/dL (70-100); HEMOGLOBIN A1c% 8.3 % (4.27-6.07)
[2023-06-07 10:11] LABS: BASOPHILS % (AUTO) 0.2 %; EOSINOPHILS % (AUTO) 0.3 %; HCT - HEMATOCRIT 27.2 % (42.0-52.0); HGB - HEMOGLOBIN 8.4 g/dL (14.0-18.0); LYMPHOCYTES % (AUTO) 4.1 %; MEAN CORPUSCULAR HEMOGLOBIN 24.1 pg (27.0-31.0); MEAN CORPUSCULAR HGB CONC 30.9 g/dL (32.0-36.0); MEAN CORPUSCULAR VOLUME 77.9 fL (80.0-94.0); MEAN PLATELET VOLUME 9.7 fL (7.4-11.4); MONOCYTES % (AUTO) 4.9 %; NEUTROPHILS % (AUTO) 88.9 %; PLT - PLATELET COUNT 391 10^3/uL (130-450); RED BLOOD COUNT 3.49 10^6/uL (4.70-6.10); WHITE BLOOD COUNT 30.2 x10^3/uL (4.8-10.8)
[2023-06-07 10:22] LABS: CREATININE 4.3 mg/dL (0.6-1.3); POTASSIUM 4.5 mmol/L (3.5-4.5)
[2023-06-07 10:25] LABS: SLIDE REVIEW? Indicated
[2023-06-07 10:26] LABS: ABNORMAL LYMPHS % (MANUAL) 0 %
--- NOTE | 2023-06-07 10:35 | ANESTHESIA ---
Pre-Anesthesia VS, & Labs - Diagnosis bilateral hydronephrosis - Procedure cystoscopy, florina ureteroscopy with possible stents Vital Signs: Temp Pulse Resp BP Pulse Ox O2 Flow Rate 37.1 C 96 20 111/69 97 2 06/07/23 08:00 06/07/23 08:00 06/07/23 08:00 06/07/23 08:00 06/07/23 08:00 06/07/23 09:43 Height: 5 ft 4 in Weight (kg): 84 kg Body Mass Index: 31.8 BMI Classification: Obese - NPO >8 hours - Lab Results Current Lab Results: Laboratory Tests 06/07/23 09:50: Sodium 137, Potassium 4.5, Chloride 107, Carbon Dioxide 20 L, Anion Gap 10.0, BUN 78 H, Creatinine 4.3 H, Estimated GFR (MDRD) 13 L, Glucose 230 H, Calcium 10.0 06/07/23 09:50: WBC 30.2 H, RBC 3.49 L, Hgb 8.4 L, Hct 27.2 L, MCV 77.9 L, MCH 24.1 L, MCHC 30.9 L, RDW 18.0 H, Plt Count 391, MPV 9.7, Neut # (Auto) 26.8 H, Lymph # (Auto) 1.3 L, [place] # (Auto) 1.5 H, Eos # (Auto) 0.1, Baso # (Auto) 0.1, Absolute Nucleated RBC 0.00, Nucleated RBC % 0.0, Manual Slide Review Indicated 06/07/23 07:34: POC Whole Bld Glucose 242 H 06/07/23 04:52: Iron < 10 L, TIBC 171 L, % Saturation TNP, Transferrin 122 L 06/07/23 04:52: Estimat Average Glucose 192 H, Hemoglobin A1c % 8.3 H 06/06/23 23:04: Sodium 134 L, Potassium 4.3, Chloride 105, Carbon Dioxide 21, Anion Gap 8.0, BUN 69 H, Creatinine 3.7 H, Estimated GFR (MDRD) 16 L, Glucose 284 H, Calcium 9.8, Total Bilirubin 0.4, AST 9 L, ALT 13, Alkaline Phosphatase 52, Total Protein 5.2 L, Albumin 2.3 L, Globulin 2.9, Albumin/Globulin Ratio 0.8 L, Lipase 16 06/06/23 23:04: WBC 31.9 H, RBC 3.57 L, Hgb 8.4 L, Hct 27.8 L, MCV 77.9 L, MCH 23.5 L, MCHC 30.2 L, RDW 18.0 H, Plt Count 424, MPV 9.2, Neut # (Auto) 28.3 H, Lymph # (Auto) 1.1 L, [place] # (Auto) 1.8 H, Eos # (Auto) 0.0, Baso # (Auto) 0.1, Absolute Nucleated RBC 0.00, Band Neuts % (Manual) Not Reportable, Abnorm Lymph % (Manual) Not Reportable, Nucleated RBC % 0.0, Neutrophils # (Manual) Not R eportable, Lymphocytes # (Manual) Not Reportable, Monocytes # (Manual) Not Reportable, Eosinophils # (Manual) Not Reportable, Basophils # (Manual) Not Reportable, Differential Comment MANUAL=AUTO DIFF, Manual Slide Review Indicated, Platelet Estimate NORMAL (130-450,000), Platelet Morphology NORMAL APPEARANCE, RBC Morph Micro Appear 2+ HYPOCHROMASIA Lab results reviewed: Yes Fish Bones: 06/07/23 09:50 06/07/23 09:50 Home Medications and Allergies Active Medications Acetaminophen (Acetaminophen 325 Mg Tablet) 650 mg PO Q4HR PRN PRN Reason: Pain 1 to 4, or Fever Albuterol/Ipratropium (Ipratropium/Albuterol 3 Ml Neb) 3 ml INH Q6H PRN PRN Reason: Shortness of Air/Wheezing Amlodipine Besylate (Amlodipine 5 Mg Tablet) 10 mg PO DAILY [facility] Last Admin: 06/07/23 09:07 Dose: 10 mg Atorvastatin Calcium (Atorvastatin 10 Mg Tablet) 20 mg PO QPM [facility] Docusate Sodium (Docusate Sodium 100 Mg Capsule) 100 mg PO DAILY [facility] Hydromorphone HCl (Hydromorphone 0.5 Mg/0.5 Ml Syringe) 0.5 mg IVP Q4H PRN PRN Reason: Severe Pain (Level 7-10) Last Admin: 06/07/23 05:46 Dose: 0.5 mg Insulin Human Regular (Insulin Regular Human 300 Unit/3 Ml Vial) 1 - 5 unit SUBQ Q6HR [facility]; Protocol Last Admin: 06/07/23 09:03 Dose: 3 unit Ondansetron HCl (Ondansetron 4 Mg/2 Ml Vial) 4 mg IVP Q6HR PRN PRN Reason: Nausea / Vomiting Oxycodone HCl (Oxycodone 5 Mg Tablet) 5 mg PO TID [facility] Last Admin: 06/07/23 05:15 Dose: 5 mg Sodium Chloride (Sodium Chloride Flush 0.9% 10 Ml Syringe) 10 ml IVP PRN PRN PRN Reason: NEEDED PER PROVIDER ORDERS Sodium Chloride (Sodium Chloride Flush 0.9% 10 Ml Syringe) 10 ml IVP 0100,0900,1700 [facility] Last Admin: 06/07/23 09:07 Dose: 10 ml Aspirin [Aspir 81] 81 mg PO DAILY 02/20/15 Docusate Sodium 100 mg PO BID 02/20/15 Lisinopril 20 mg PO DAILY 02/20/15 Atorvastatin [Lipitor] 20 mg PO QPM 04/03/23 Insulin Glargine [Lantus Solostar] 45 units SUBQ HS 04/03/23 Ipratropium/Albuterol [Combivent Respimat] 1 puffs INH Q6HR PRN 04/03/23 Empagliflozin [Jardiance] 10 mg PO DAILY 05/18/23 Amlodipine Besylate [Norvasc] 10 mg PO DAILY 05/24/23 Allergies/Adverse Reactions: Allergies Allergy/AdvReac Type Severity Reaction Status Date / Time Penicillins Allergy Severe Rash Verified 06/06/23 21:56 felisa Allergy throat Verified 06/06/23 21:56 swells passion fruit Allergy Unknown Verified 06/06/23 21:56 guava Allergy throat Uncoded 06/06/23 21:56 swells papaya Allergy throat Uncoded 06/06/23 21:56 swells Anes History & Medical History - Anesthetic History Anesthesia Complications: reports: No previous complications - Medical History Cardiovascular: reports: Hypertension, High cholesterol Pulmonary: reports: Shortness of breath (on 2L o2 NC, O2 sat 91%), Other Gastrointestinal: reports: Chronic constipation, Hemorrhoids Urinary: reports: Kidney stones, Other (bladder metastatic cancer. ) Neuro: reports: None Musculoskeletal: reports: Other Endocrine/Autoimmune: reports: Type 2 diabetes Skin: reports: None Smoking Status: Current every day smoker History of Cancer?: Yes Other Past Medical History: Bladder CA with METS, glasses at home - Surgical History General: reports: Colonoscopy, Other Urologic: reports: Bladder surgery Exam General: Oriented x3, Cooperative, Moderate distress Dental: Poor dentition Mouth Openin Fingerbreadth Neck Mobility: Reduced Mallampati classification: III Thyromental Distance: 4-6 cm Respiratory: Accessory muscle use, Rhonchi Cardiovascular: Regular rate, Normal S1, Normal S2, No murmurs Mental/Cognitive Status: Lethargic Plan Anesthesia Type: General Consent for Procedure(s) Verified and Reviewed: Yes Code Status: Attempt Resuscitation (Discussed suspending DNR during surgery and patient agrees) ASA classification: 4-Incapacitating disease Is this case an emergency?: Yes
--- NOTE | 2023-06-07 10:55 | PHARMACY PROGRESS NOTE ---
- Best Possible Medication History Admit Date and Time: 06/07/23 0350 Processed by: Nursing Medications reviewed in ED?: Yes As the person ultimately responsible for medication therapy, providers are able to order a medication from an existing home medication list in [facility] via the "Reconcile Routine" prior to Confirmation of that medication by child support case officer. Such practice is discouraged except when the physician, in their clinical judgment, deems that a medical need exists for a medication without regard to previous use.
[2023-06-07 10:59] LABS: BAND NEUTROPHILS % (MANUAL) 1 %; DIFFERENTIAL COMMENT MANUAL DIFFERENTIAL; LYMPHOCYTES # (MANUAL) 0.9 10^3/uL (1.5-3.5); LYMPHOCYTES % (MANUAL) 3 %; MONOCYTES # (MANUAL) 1.2 10^3/uL (0.0-1.0); NEUTROPHILS # (MANUAL) 28.1 10^3/uL (1.5-6.6); RBC MORPHOLOGY (MULTIPLE) 3+ ANISOCYTOSIS (NORMAL)
[2023-06-07] MEDS: DOCUSATE SODIUM 100 MG CAPSULE PO SCH (11:05)
--- NOTE | 2023-06-07 11:54 | CONSULTATION NOTE ---
Referring Provider Name of Referring Provider:: Dr Blair Consult Date: 06/07/23 Chief Complaint - Chief Complaint Chief Complaint: hematuria, OLVIN, bilateral hydroureteronephrosis History of Present Illness - Admitted From Admitted From:: ER - History Obtained From Records Reviewed: EMR History obtained from: EMR, Dr Blair Exam Limitations: somnolent patient - History of Present Illness HPI Comment/Other: Hugh a 77-year-old male well-known to me with many medical issues including diabetes, hypertension, with an unfortunate recent medical history with diagnosis of locally advanced and invasive bladder cancer obstructing his left ureter with a stent in place, urethral strictures requiring dilation, diffuse metastatic bladder cancer with aggressively worsening pulmonary metastatic disease. He was last seen by myself a few weeks ago when we exchanged his stent. He had been admitted for pain control for his malignancy at that time. He was discharged home with hopeful plans of seeing oncology versus palliative care but he does not seem interested in either. He has been living at home and he had a fall last night. He was found down and sent to the ER. He was found to have a rib fracture along with worsening bilateral hydroureteronephrosis, significant clot burden in the bladder, OLVIN with a creatinine of 3.7 from his baseline 0.9. He has leukocytosis of 31. He is afebrile and hemodynamically stable. He has been somnolent throughout his stay. He answers questions appropriately, but slowly. He is oriented. Last night in the ER they placed a three-way 22 [place] Herbert catheter and irrigate out some clots. However he still has significant hematuria and likely still a large volume of clots in his bladder. It is unclear if he still taking his aspirin or not History - Past Medical History Cardiovascular: reports: Hypertension, High cholesterol Respiratory: reports: Shortness of breath (on 2L o2 NC, O2 sat 91%), Other Neuro: reports: None Endocrine/Autoimmune: reports: Type 2 diabetes GI: reports: Chronic constipation, Hemorrhoids : reports: Kidney stones, Other (bladder metastatic cancer. ) HEENT: reports: Chronic vision loss, Chronic hearing loss Psych: reports: None Musculoskeletal: reports: Other Derm: reports: None MRSA Hx?: No Other Past Medical History: Bladder CA with METS, glasses at home - Past Surgical History General: reports: Colonoscopy, Other - POLST Patient has POLST: No Meds/Allgy - Home Medications Home Medications: Ambulatory Orders Medication Instructions Recorded Confirmed Aspirin [Aspir 81] 81 mg PO DAILY 02/20/15 06/06/23 Docusate Sodium 100 mg PO BID 02/20/15 06/06/23 Lisinopril 20 mg PO DAILY 02/20/15 06/06/23 Atorvastatin [Lipitor] 20 mg PO QPM 04/03/23 06/06/23 Insulin Glargine [Lantus Solostar] 45 units SUBQ HS 04/03/23 06/06/23 Ipratropium/Albuterol [Combivent 1 puffs INH Q6HR PRN 04/03/23 06/06/23 Respimat] Empagliflozin [Jardiance] 10 mg PO DAILY 05/18/23 06/06/23 Amlodipine Besylate [Norvasc] 10 mg PO DAILY 05/24/23 06/06/23 Docusate Sodium 100Mg Capsule 100 mg PO DAILY #20 cap 06/04/23 06/06/23 [Colace 100Mg Capsule] Meloxicam [Mobic] 7.5 mg PO BID 10 Days #20 tablet 06/04/23 06/06/23 Tranexamic Acid 650 mg PO TID #30 tablet 06/04/23 06/06/23 oxyCODONE [Roxicodone] 5 mg PO TID #20 tablet 06/04/23 06/06/23 - Allergies Allergies/Adverse Reactions: Allergies Allergy/AdvReac Type Severity Reaction Status Date / Time Penicillins Allergy Severe Rash Verified 06/06/23 21:56 felisa Allergy throat Verified 06/06/23 21:56 swells passion fruit Allergy Unknown Verified 06/06/23 21:56 guava Allergy throat Uncoded 06/06/23 21:56 swells papaya Allergy throat Uncoded 06/06/23 21:56 swells Exam - Vital Signs Reviewed Vital Signs: Yes Vital Signs: Vital Signs x48h Temp Pulse Pulse Resp BP BP Pulse Ox 06/07/23 09:43 06/07/23 08:00 37.1 C 96 20 111/69 97 06/07/23 05:26 36.9 C 89 20 136/67 H 96 06/07/23 04:19 06/07/23 04:00 36.6 C 89 20 124/59 L 97 O2 Flow Rate 06/07/23 09:43 2 06/07/23 08:00 2 06/07/23 05:26 2 06/07/23 04:19 2 06/07/23 04:00 2 - Physical Exam General Appearance: positive: No acute distress, Lethargic Respiratory: positive: Rhonchi Cardiovascular: positive: Regular rate & rhythm Conclusion and Plan - Lab Results Laboratory Results 06/07/23 11:20: POC Whole Bld Glucose 213 H 06/07/23 09:50: Sodium 137, Potassium 4.5, Chloride 107, Carbon Dioxide 20 L, Anion Gap 10.0, BUN 78 H, Creatinine 4.3 H, Estimated GFR (MDRD) 13 L, Glucose 230 H, Calcium 10.0 06/07/23 09:50: WBC 30.2 H, RBC 3.49 L, Hgb 8.4 L, Hct 27.2 L, MCV 77.9 L, MCH 24.1 L, MCHC 30.9 L, RDW 18.0 H, Plt Count 391, MPV 9.7, Neut # (Auto) RAW STOCK DRIER TENDER, Lymph # (Auto) RAW STOCK DRIER TENDER, [place] # (Auto) RAW STOCK DRIER TENDER, Eos # (Auto) RAW STOCK DRIER TENDER, Baso # (Auto) RAW STOCK DRIER TENDER, Absolute Nucleated RBC RAW STOCK DRIER TENDER, Total Counted 100, Band Neuts % (Manual) 1, Abnorm Lymph % (Manual) 0, Nucleated RBC % RAW STOCK DRIER TENDER, Neutrophils # (Manual) 28.1 H, Lymphocytes # (Manual) 0.9 L, Monocytes # (Manual) 1.2 H, Eosinophils # (Manual) 0.0, Basophils # (Manual) 0.0, Differential Comment MANUAL DIFFERENTIAL, Manual Slide Review Indicated, RBC Morph Micro Appear 3+ ANISOCYTOSIS 06/07/23 07:34: POC Whole Bld Glucose 242 H 06/07/23 04:52: Iron < 10 L, TIBC 171 L, % Saturation TNP, Transferrin 122 L 06/07/23 04:52: Estimat Average Glucose 192 H, Hemoglobin A1c % 8.3 H 06/07/23 03:55: Urine Color RED/BLOODY, Urine Clarity TURBID, Urine pH 6.5, Ur Specific [place] 1.015, Urine Protein >=300 H, Urine Glucose (UA) 250 H, Urine Ketones 15 H, Urine Occult Blood LARGE H, Urine Nitrite POSITIVE H, Urine Bilirubin MODERATE H, Urine Urobilinogen 4 H, Ur Leukocyte Esterase MODERATE H, Urine RBC TNTC H, Urine WBC 6-10 H, Ur Squamous Epith Cells RARE Squamous, Urine Bacteria Moderate H, Ur Microscopic Review INDICATED, Urine Culture Comments INDICATED 06/06/23 23:04: Sodium 134 L, Potassium 4.3, Chloride 105, Carbon Dioxide 21, Anion Gap 8.0, BUN 69 H, Creatinine 3.7 H, Estimated GFR (MDRD) 16 L, Glucose 284 H, Calcium 9.8, Total Bilirubin 0.4, AST 9 L, ALT 13, Alkaline Phosphatase 52, Total Protein 5.2 L, Albumin 2.3 L, Globulin 2.9, Albumin/Globulin Ratio 0.8 L, Lipase 16 06/06/23 23:04: WBC 31.9 H, RBC 3.57 L, Hgb 8.4 L, Hct 27.8 L, MCV 77.9 L, MCH 23.5 L, MCHC 30.2 L, RDW 18.0 H, Plt Count 424, MPV 9.2, Neut # (Auto) 28.3 H, Lymph # (Auto) 1.1 L, [place] # (Auto) 1.8 H, Eos # (Auto) 0.0, Baso # (Auto) 0.1, Absolute Nucleated RBC 0.00, Band Neuts % (Manual) Not Reportable, Abnorm Lymph % (Manual) Not Reportable, Nucleated RBC % 0.0, Neutrophils # (Manual) Not Reportable, Lymphocytes # (Manual) Not Reportable, Monocytes # (Manual) Not Reportable, Eosinophils # (Manual) Not Reportable, Basophils # (Manual) Not Reportable, Differential Comment MANUAL=AUTO DIFF, Manual Slide Review I ndicated, Platelet Estimate NORMAL (130-450,000), Platelet Morphology NORMAL APPEARANCE, RBC Morph Micro Appear 2+ HYPOCHROMASIA - Diagnostic Imaging Results Diagnostic Imaging Results: positive: Read independently - Diagnosis Diagnosis: Gross hematuria with clot retention. Bilateral hydroureteronephrosis despite left stent in place. Significant bladder cancer including metastatic disease. Acute kidney injury - Consultation Note Consultation Note: 77-year-old male with history of diabetes, hypertension, significant metastatic bladder cancer and locally invasive bladder cancer obstructing his left UO now with gross hematuria and clot retention along with bilateral hydr oureteronephrosis despite left stent in place, OLVIN - Plan Plan: Cystoscopy, clot evacuation, fulguration, possible right ureteral stent placement possible left ureteral stent exchange possible resection of bladder tumor was recommended to treat this patient's condition. Risks of the procedure including infection, bleeding, injury to adjacent structures, need for additional procedures were discussed. Patient states understanding and consents to the plan. We will add him on for the procedure later. NPO/IVF Continue catheter for now
--- NOTE | 2023-06-07 13:52 | HISTORY & PHYSICAL EXAMINATION ---
Chief Complaint - Chief Complaint Chief Complaint: Fall, bladder CA, OLVIN, rib fx, Anemia. History of Present Illness - Admitted From Admitted From:: Emergency Department - History Obtained From Records Reviewed: ER notes. History obtained from: ER notes. Partially from pt. Exam Limitations: Somnolence - History of Present Illness HPI Comment/Other: 77 YOM with a Hx of HTN, HLD, DM2, bladder CA w/ pulm metastases, who lives alone, presented to ER via EMS for a ground level fall that occurred yesterday night while getting out of bed to go to the bathroom, states that he lost his balanced and fell to the floor but denies any head injury or LOC. Pt remained on the floor for around 30 min due to inability . Eventually someone came to check on him, found him on the floor, and called 911. Per Er note pt denied any pain but to be uncomfortable w/ painful moans. Er not able to gain much Hx possibly due to some drowsiness from IV dlaudid given. He answers some questions but slowly. He is afebrile and hemodynamically stable. Last night in the ER they placed a three-way 22 [place] Herbert catheter and irrigate out some clots s/p recommendation from Urologist consult. However he still has significant hematuria and likely still a large volume of clots in his bladder. It is unclear if he still taking his aspirin or not. Pt recently seen in ED on the and was admitted at [facility] 05-23-23 to 05-28-23 both visits related to complications with bladder tumor causing L sided ureter compression, hydro- nephrosis, resulting in stent placement. Recent CT scans show multiple rapidly enlarging pulm metastases. Per ER note, pt has declined hospice care and recently failed to follow up with oncologist. Pt does not appear to have a good prognosis currently but is not wanting any aggressive treatment. Hx of tobacco use, unknown how long or how much. History - Past Medical History Cardiovascular: reports: Hypertension, High cholesterol Respiratory: reports: Shortness of breath (on 2L o2 NC, O2 sat 91%), Other Neuro: reports: None Endocrine/Autoimmune: reports: Type 2 diabetes GI: reports: Chronic constipation, Hemorrhoids : reports: Kidney stones, Other (bladder metastatic cancer. ) HEENT: reports: Chronic vision loss, Chronic hearing loss Psych: reports: None Musculoskeletal: reports: Other Derm: reports: None MRSA Hx?: No Other Past Medical History: Bladder CA with METS, glasses at home - Past Surgical History General: reports: Colonoscopy, Other - Family & Social History Living arrangement: At home Living Situation: Alone - Substance History Use: Uses substance without health or social issues: Tobacco Abuse: Recurrent use of substance despite neg consequences: NONE Dependence: Experiences withdrawal or developed tolerances: NONE - POLST Patient has POLST: No POLST Status: DNR Meds/Allgy - Home Medications Home Medications: Ambulatory Orders Medication Instructions Recorded Confirmed Aspirin [Aspir 81] 81 mg PO DAILY 02/20/15 06/06/23 Docusate Sodium 100 mg PO BID 02/20/15 06/06/23 Lisinopril 20 mg PO DAILY 02/20/15 06/06/23 Atorvastatin [Lipitor] 20 mg PO QPM 04/03/23 06/06/23 Insulin Glargine [Lantus Solostar] 45 units SUBQ HS 04/03/23 06/06/23 Ipratropium/Albuterol [Combivent 1 puffs INH Q6HR PRN 04/03/23 06/06/23 Respimat] Empagliflozin [Jardiance] 10 mg PO DAILY 05/18/23 06/06/23 Amlodipine Besylate [Norvasc] 10 mg PO DAILY 05/24/23 06/06/23 Docusate Sodium 100Mg Capsule 100 mg PO DAILY #20 cap 06/04/23 06/06/23 [Colace 100Mg Capsule] Meloxicam [Mobic] 7.5 mg PO BID 10 Days #20 tablet 06/04/23 06/06/23 Tranexamic Acid 650 mg PO TID #30 tablet 06/04/23 06/06/23 oxyCODONE [Roxicodone] 5 mg PO TID #20 tablet 06/04/23 06/06/23 - Allergies Allergies/Adverse Reactions: Allergies Allergy/AdvReac Type Severity Reaction Status Date / Time Penicillins Allergy Severe Rash Verified 06/06/23 21:56 felisa Allergy throat Verified 06/06/23 21:56 swells passion fruit Allergy Unknown Verified 06/06/23 21:56 guava Allergy throat Uncoded 06/06/23 21:56 swells papaya Allergy throat Uncoded 06/06/23 21:56 swells Review of Systems - Constitutional Constitutional: denies: Fever, Chills - Cardiovascular Cariovascular: denies: Chest pain - Respiratory Respiratory: denies: SOB at rest - Gastrointestinal Gastrointestinal: denies: Abdominal pain, Nausea, Vomiting - Genitourinary Genitourinary: reports: Hematuria (Seen in ER urinary cath) - Musculoskeletal Musculoskeletal: reports: Muscle pain (Rib fx, fall.) - Neurological Neurological: reports: Slurred speech (Slow to respond.) Exam - Vital Signs Vital Signs: Vital Signs x48h Temp Pulse Resp BP Pulse Ox O2 Flow Rate 06/07/23 09:43 2 06/07/23 08:00 37.1 C 96 20 111/69 97 2 - Physical Exam General Appearance: positive: Mild distress Eyes Bilateral: positive: EOMI, Other (Miosis) ENT: positive: Dry mucous membranes Neck: positive: Nml inspection Respiratory: positive: Chest non-tender, No respiratory distress, Rhonchi (Scattered.) Cardiovascular: positive: Regular rate & rhythm Peripheral Pulses: positive: 2+ Abdomen: positive: Tenderness (Painful moan with generalized palpation of the abd.) Skin: positive: Warm, Dry. negative: Cyanosis Extremities: negative: Non-tender Neurologic/Psychiatric: positive: Slurred/abnml speech (Only able to speak 1-2 words at a time.). negative: Oriented x3 (Oriented to self but not place or aileen nt.) Conclusion/Plan - Problem List (1) Bladder outlet obstruction Conclusion/Plan: Pt has a Hx of bladder CA with L sided ureter compression, hydro-nephrosis, resulting in prior L stent placement. Right and left ureter stent placed by urology today with sucess. 200 cc of clot in bladder removed. This has been a ongoing problem due to his complex Hx of bladder CA however pt has refused to follow up with oncology for treatment. CT: L stent in place, persistent L hydroureternephrosis. Increased prominence of R hydronephrosis and mild R hydroureter. Blood clots noted in bladder. Will monitor overnight. (2) Urinary tract infection Conclusion/Plan: Pt with a Hx of bladder CA had UA in ER showing RBC's, > 300 urine protein, glucose 250, urine ketones 15, nitrites, moderate bilirubin, WBC's 6-10. Pt denied any fever or chills. Plan: -Per urology, pt will be treated with Keflex and urine will be cultured for sensitivity. -Urology would like us to start Levaquin with renal adjustment. (3) OLVIN (acute kidney injury) Conclusion/Plan: Pt brought in to ER for a fall is found to have OLVIN in the ER with creatinine of 3.7 from his baseline 0.9 days ago. Pt was on the floor for 30 min prior to EMS being called. IV fluids given. Treating UTI as noted. Pt also undergoing stent placement by urologist to help with ureter obstruction. Plan: -Monitor overnight. -BMP, CBC series. (4) Rib fracture Conclusion/Plan: Pt presented to ER via EMS for a ground level fall that occurred yesterday night while getting out of bed to go to the bathroom, states that he lost his balanced and fell to the floor but denies any head injury or LOC. Pt remained on the floor for around 30 min due to inability to pick himself up. Per Er note pt denied any pain but appeared to be uncomfortable via painful moans. CT Chest/Abdo: 11th rib comminuted fracture. No signs of a pnuemothorax at this point. Pt was on 97% O2 w/ 2L nasal canula. Lung sounds bilat showed scattered rhonchi. Plan: -Pain control. -PT/OT eval. Qualifiers: Encounter type: initial encounter Rib fracture type: single rib Fracture type: closed Laterality: left Qualified Code(s): S22.32XA - Fracture of one rib, left side, initial encounter for closed fracture (5) Bladder cancer metastasized to bone Conclusion/Plan: Pt has a Hx of bladder CA w/ multiple pulmonary metastases. Pt recently seen in ED on the and was admitted at [facility] 05-23-23 to 05-28-23 both visits related to complications with bladder tumor causing L sided ureter compression, hydro- nephrosis, resulting in stent placement. Recent CT scans show multiple rapidly enlarging pulm metastases. Per ER note, pt has declined hospice care and recently failed to follow up with oncologist. Pt does not appear to have a good prognosis and has had this explained to him but he does not wanting any aggressive treatment. Plan: Will monitor overnight. (6) Anemia Conclusion/Plan: Pt brought into ER for a fall, found to have anemia, microcytic. WBC 31.9, Hgb 8.4, MCV 77.9, CR 3.7 (baseline normal), Na 134. CBC series ordered. Will monitor. - Lab Results Lab results reviewed: Yes Fish Bones: 06/07/23 09:50 06/07/23 09:50
[2023-06-07] MEDS ORDERED: PROPOFOL 200 MG/20 ML VIAL IVP ONE (15:13)
[2023-06-07] MEDS ORDERED: fentaNYL 100 MCG/2 ML VIAL ONE (15:14)
[2023-06-07] MEDS ORDERED: LIDOCAINE 2% URO-JET 5 ML SYRINGE UR ONE (15:35)
[2023-06-07] MEDS ORDERED: DEXAMETHASONE 4 MG/ML VIAL ONE (15:43)
[2023-06-07] MEDS ORDERED: ONDANSETRON 4 MG/2 ML VIAL ONE (15:43)
[2023-06-07] MEDS ORDERED: ceFAZolin 1 GM VIAL ONE (15:45)
[2023-06-07] MEDS ORDERED: ePHEDrine 50 MG/ML VIAL IVP ONE (16:14)
[2023-06-07] MEDS: LACTATED RINGERS 300 ML IV ONE ×2 (16:39→17:30)
--- NOTE | 2023-06-07 16:44 | OPERATIVE REPORT ---
Operative Report - General Admit Date: 06/07/23 Procedure Date: 06/07/23 Planned Procedure: Cystoscopy, clot evacuation, fulguration of bleeding areas, right ureteral stent placement, left ureteral stent exchange Pre-Op Diagnosis: Hematuria, bilateral hydroureteronephrosis, acute kidney injury Procedure Performed: Cystoscopy, clot evacuation, fulguration of bleeding areas, right ureteral stent placement, left ureteral stent exchange, left ureteral dilation Post Op Diagnosis: Hematuria, bilateral hydroureteronephrosis, acute kidney injury - Procedure Note Primary Surgeon: Rui Anesthesia Provider: JUWAN Isaac Anesthesia Technique: General LMA Pathology: left kidney urine for culture Estimated Blood Loss (mL): 2 Findings: 200 cc of clot in bladder Large left bladder mass, small areas fulgurated Right ureteral stent placed Left distal ureter dilated to 10 [place], new left ureteral stent placed 22 [place] three-way Herbert Complications: none - Other Other Information/Narrative: After informed consent was obtained, the patient was brought to the OR and laid in the supine position. His Herbert catheter was removed. He was then placed in dorsolithotomy position and prepped draped in usual sterile fashion. A formal timeout was performed reconfirming the patient, procedure and laterality. A 26 [place] resectoscope was advanced into the urinary bladder. He had a large clot in the bladder which was evacuated out using Ellik evacuator pulling out about 200 cc or so of old clot. He was noted to have a stent emanating from his left large bladder mass. There was no acute bleeding but there was some oozing areas on this bladder mass. The mass was about 10 cm in size it was more sessile than papillary. His right ureteral orifice was orthotopic and appeared unobstructed. A sensor wire cannulate the right ureteral orifice and a sensor wire was placed up into the kidney. A 6 [place] 26 cm double-J ureteral stent was placed with good curling noted in the kidney and good curling noted in the bladder We attempted to place a sensor wire next to the old left ureteral stent but we could not gain access given the large tumor. The stent was grasped and brought to the meatus and a sensor was placed through it up into the kidney. We then dilated over this sensor wire using a Amplatz renal dilators. Using the 5 [place] open-ended catheter to start, we noted a significant hydronephrotic drip and a culture was sent for analysis. We then replaced sensor wire and then started dilating from 5 [place] to 8 [place] to 10 [place] this was dilated to the distal ureter. A new 6 [place] 26 cm double-J ureteral stent was placed good curling noted in the kidney and good curling noted in the bladder. The resectoscope was replaced back into the bladder and any areas that were oozing were fulgurated. There was excellent visualization and the bladder appeared to have had no injuries. There was no bleeding. A Uro-Jet was placed and 22 [place] three-way Herbert catheter was placed with 40 cc in the balloon. He was left on gentle CBI This concluded the procedure the patient tolerated the procedure well and was brought to PACU without further incident. He will return to the floor for further medical management. The catheter can likely be removed in the next day or so
[2023-06-07] MEDS ORDERED: ATROPINE ABBOJECT 1 MG/10 ML SYRINGE IVP PRN ×2 (17:36→17:42)
[2023-06-07] MEDS ORDERED: HYDROmorphone 0.5 MG/0.5 ML SYRINGE IVP PRN ×2 (17:36→17:42)
[2023-06-07] MEDS ORDERED: METOCLOPRAMIDE 10 MG/2 ML VIAL IVP PRN ×2 (17:36→17:42)
[2023-06-07] MEDS ORDERED: ePHEDrine 50 MG/ML VIAL IVP PRN ×2 (17:36→17:42)
[2023-06-07] MEDS ORDERED: MORPHINE 2 MG/ML CARPUJECT IVP PRN ×2 (17:36→17:42)
[2023-06-07] MEDS ORDERED: NALOXONE 0.4 MG/ML VIAL IVP PRN ×2 (17:36→17:42)
[2023-06-07] MEDS ORDERED: fentaNYL 100 MCG/2 ML VIAL IVP PRN ×2 (17:36→17:42)
[2023-06-07] MEDS: LACTATED RINGERS 1,000 ML IV SCH ×2 (17:41→18:29)
[2023-06-07] MEDS: levoFLOXacin 750 MG/150 ML 750 MG/150 ML BAG IV ONE (18:30)
[2023-06-07] MEDS: ATORVASTATIN 10 MG TABLET PO SCH (21:19)
[2023-06-08] MEDS: ACETAMINOPHEN 325 MG TABLET PO PRN (00:28)
[2023-06-08 05:57] LABS: HCT - HEMATOCRIT 23.8 % (42.0-52.0); HGB - HEMOGLOBIN 7.1 g/dL (14.0-18.0); MEAN CORPUSCULAR HEMOGLOBIN 23.2 pg (27.0-31.0); MEAN CORPUSCULAR HGB CONC 29.8 g/dL (32.0-36.0); MEAN CORPUSCULAR VOLUME 77.8 fL (80.0-94.0); MEAN PLATELET VOLUME 10.2 fL (7.4-11.4); RED BLOOD COUNT 3.06 10^6/uL (4.70-6.10); RED CELL DISTRIBUTION WIDTH 17.8 % (12.0-15.0); WHITE BLOOD COUNT 30.6 x10^3/uL (4.8-10.8)
[2023-06-08 06:24] LABS: MAGNESIUM 1.9 mg/dL (1.7-2.3); PHOSPHORUS 6.4 mg/dL (2.5-5.0)
[2023-06-08 06:45] LABS: CALCIUM 9.3 mg/dL (8.5-10.3); POTASSIUM 4.8 mmol/L (3.5-4.5)
[2023-06-08] MEDS: SODIUM CHLORIDE 0.9% 1,000 ML IV SCH (08:32)
[2023-06-08 09:03] LABS: BASOPHILS % (AUTO) 0.3 %; EOSINOPHILS % (AUTO) 0.1 %; HCT - HEMATOCRIT 24.6 % (42.0-52.0); HGB - HEMOGLOBIN 7.7 g/dL (14.0-18.0); LYMPHOCYTES % (AUTO) 4.6 %; MEAN CORPUSCULAR HEMOGLOBIN 24.3 pg (27.0-31.0); MEAN CORPUSCULAR HGB CONC 31.3 g/dL (32.0-36.0); MEAN CORPUSCULAR VOLUME 77.6 fL (80.0-94.0); MEAN PLATELET VOLUME 9.9 fL (7.4-11.4); MONOCYTES % (AUTO) 2.9 %; NEUTROPHILS % (AUTO) 89.5 %; PLT - PLATELET COUNT 259 10^3/uL (130-450); RED BLOOD COUNT 3.17 10^6/uL (4.70-6.10); RED CELL DISTRIBUTION WIDTH 17.9 % (12.0-15.0)
[2023-06-08 09:14] LABS: ABNORMAL LYMPHS % (MANUAL) 0 %
[2023-06-08 09:25] LABS: CALCIUM 9.4 mg/dL (8.5-10.3); CREATININE 3.9 mg/dL (0.6-1.3); POTASSIUM 4.7 mmol/L (3.5-4.5)
[2023-06-08 09:43] LABS: BAND NEUTROPHILS % (MANUAL) 2 %; DIFFERENTIAL COMMENT MANUAL DIFFERENTIAL; LYMPHOCYTES # (MANUAL) 1.4 10^3/uL (1.5-3.5); LYMPHOCYTES % (MANUAL) 5 %; MONOCYTES # (MANUAL) 0.6 10^3/uL (0.0-1.0); RBC MORPHOLOGY (MULTIPLE) 3+ ANISOCYTOSIS (NORMAL)
--- NOTE | 2023-06-08 16:02 | PROVIDER PROGRESS NOTE ---
Assessment/Plan - Problem List (1) Bladder outlet obstruction Assessment/Plan: CT showed : L stent in place, persistent L hydroureternephrosis. Increased prominence of R hydronephrosis and mild R hydroureter. Blood clots noted in bladder. Pt has a Hx of bladder CA with L sided ureter compression, hydro-nephrosis, resulting in prior L stent placement. Right and left ureter stents were placed by urology yesterday 06/07 with success. 200 cc of clot in bladder removed. He has had b;ladder irrigation and the blood has cleared This has been a ongoing problem due to his complex Hx of bladder CA however pt h as refused to follow up with oncology for treatment (missed his appt last week). Urologist feels he has 2 weks to live. Plan: Appreciate Dr Fabian speaking to me today. Will keep Herbert in place, now for comfort measures (2) Urinary tract infection Conclusion/Plan: Pt with a Hx of bladder CA, had UA in ER showing RBC's > 300 urine protein, glucose 250, urine ketones 15, (+) nitrites, moderate bilirubin, WBC's 6-10. Pt denied any fever or chills. On CBC his WBC was 31.9 Plan: Per Urology recommendations, pt will be treated with Levaquin and urine will be cultured for sensitivity. Urology would like us to dose Levaquin with renal adjustment. (3) OLVIN (acute kidney injury) Conclusion/Plan: In ER, pt found to have OLVIN with creatinine of 3.7, elevated from his baseline creat which was 0.9 days ago. Pt was on the floor for about 30 min prior to EMS being called. IV fluids given. Treating UTI as noted. Pt also underwent stent placement by Urologist to help with ureter obstruction. Plan: Cont iv fluids, since he is somnolent and not eating or drinking today Avoid nephrotoxins Follow BMP daily (4) Bladder cancer metastasized to bone Conclusion/Plan: Pt has a Hx of bladder CA w/ multiple pulmonary metastases. Pt recently seen in ED on the and was also admitted here at [facility] 05-23-23 to 05-28-23. Both visits related to complications with bladder tumor causing L sided ureter compression, hydro-nephrosis, resulting in needing stent placement. Recent CT scans show multiple rapidly enlarging pulm metastases. Per ER note, pt has declined Hospice care and recently failed to follow up with oncologist. Pt does not appear to have a good prognosis and has had this explained to him but he does not wanting any aggressive treatment. Plan: Palliative Care consult requested today (5) Fall at home Pt presented to ER via EMS for a ground level fall that occurred yesterday night while getting out of bed to go to the bathroom, states that he lost his balanced and fell to the floor but denies any head injury or LOC. Pt remained on the fl oor for around 30 min due to inability to pick himself up. Per ER note pt denied any pain but appeared to be uncomfortable via painful moans. Plan: PT and OT evals and orthostatic VS checks planned when he is no longer somnolent (6) Rib fracture Conclusion/Plan: Pt presented to ER via EMS for a ground level fall that occurred while getting out of bed to go to the bathroom, states that he lost his balanced and fell to the floor but denies any head injury or LOC. Pt remained on the floor for around 30 min due to inability to pick himself up. Per ER note pt denied any pain but appeared to be uncomfortable via painful moans. CT Chest/Abdo: 11th rib comminuted fracture. No signs of a pnuemothorax at that point. Pt was on 97% O2 w/ 2L nasal canula. Lung sounds bilat showed scattered rhonchi. Plan: Pain meds as needed IS Palliative Care consult (7) Chronic respiratory failure Conclusion/Plan: Pt on suppl O2 for his COPD PLan: Cont suppl O2, with target saturation 88-92% (8) DM type 2 Conclusion/Plan: He was on Insulin and Jardiance at home Plan: DM diet may be soon changed to Reg diet for comfort feeding, if PA,lliative CAre recommends Cont hypoglycemia prtocol, fingerstick checks, DM diet Cont iv fluids with D5 soncehe is somnolent and not eating (9) Hx HTN Conclusion/Plan: BP is running 90's Plan: Hold his BP meds Cont iv with NS (10) Anemia Conclusion/Plan: Pt found to have anemia, microcytic. Hgb 8.4, MCV 77.9 Plan: Will monitor CBC daily - Current Meds Current Meds: Current Medications Generic Name Dose Route Start Last Admin Trade Name Freq PRN Reason Stop Dose Admin Acetaminophen 650 mg 06/07/23 03:50 06/08/23 00:28 Acetaminophen 325 Mg Tablet PO 650 mg Q4HR PRN Administration Pain 1 to 4, or Fever Docusate Sodium 100 mg 06/07/23 09:00 06/08/23 08:28 Docusate Sodium 100 Mg Capsule PO 100 mg DAILY DK Administration Hydromorphone HCl 0.5 mg 06/07/23 04:01 06/08/23 11:47 Hydromorphone 0.5 Mg/0.5 Ml Syringe IVP 0.5 mg Q4H PRN Administration Severe Pain (Level 7-10) Sodium Chloride 1,000 mls @ 83.333 mls/hr 06/08/23 08:00 06/08/23 08:32 Normal Saline 0.9% IV 83.333 mls/hr .Q12H DK Administration Oxycodone HCl 5 mg 06/07/23 06:00 06/08/23 14:24 Oxycodone 5 Mg Tablet PO 5 mg TID DK Administration Sodium Chloride 10 ml 06/07/23 09:00 06/08/23 09:36 Sodium Chloride Flush 0.9% 10 Ml Syringe IVP 10 ml 0100,0900,1700 DK Administration - Lab Result Fish Bone Diagrams: 06/08/23 08:56 06/08/23 08:56 - Additional Planning My Orders: My Active Orders 06/08/23 Palliative Care Consult [CONS] Routine 06/08/23 08:00 Sodium Chloride 0.9% [Normal Saline 0.9%] 1,000 ml IV 83.333 mls/hr 06/08/23 17:00 Insulin Lispro [Humalog Kwikpen U-100] 1 - 5 unit SUBQ 0800,1200,1700,2100 Subjective - Subjective Patient Reports: Other (Asleep most of day) Objective Vital Signs: Vital Signs - 24 hr 06/07/23 06/07/23 06/07/23 16:39 16:45 16:50 Temperature 37.2 C 37.7 C Heart Rate 68 108 H 109 H Heart Rate [ Brachial] Heart Rate [ Radial] Respiratory 14 19 20 Rate Blood Pressure 136/85 H 135/70 H 132/73 H Blood Pressure [Left Brachial artery] O2 Saturation 94 95 98 If not protocol : Oxygen Flow, liters/minute 06/07/23 06/07/23 06/07/23 16:55 17:00 17:05 Temperature 37.7 C 36.5 C 37.0 C Heart Rate 116 H 118 H 118 H Heart Rate [ Brachial] Heart Rate [ Radial] Respiratory 19 19 21 Rate Blood Pressure 145/65 H 144/75 H 141/69 H Blood Pressure [Left Brachial artery] O2 Saturation 97 95 94 If not protocol : Oxygen Flow, liters/minute 06/07/23 06/07/23 06/07/23 17:10 17:15 17:30 Temperature 37.0 C 37.0 C 36.6 C Heart Rate 120 H 120 H Heart Rate [ 117 H Brachial] Heart Rate [ Radial] Respiratory 22 22 24 Rate Blood Pressure 136/61 H 124/60 Blood Pressure 116/54 L [Left Brachial artery] O2 Saturation 95 96 94 If not protocol 6 : Oxygen Flow, liters/minute 06/07/23 06/07/23 06/07/23 18:00 18:30 19:03 Temperature 36.7 C 36.5 C 36.4 C L Heart Rate Heart Rate [ 114 H 111 H Brachial] Heart Rate [ 114 H Radial] Respiratory 24 16 22 Rate Blood Pressure Blood Pressure 92/50 L 89/46 L 82/43 L [Left Brachial artery] O2 Saturation 94 92 94 If not protocol 6 6 6 : Oxygen Flow, liters/minute 06/07/23 06/07/23 06/07/23 19:15 19:30 20:30 Temperature 36.5 C 36.5 C Heart Rate Heart Rate [ 114 H 112 H Brachial] Heart Rate [ Radial] Respiratory 24 24 Rate Blood Pressure Blood Pressure 78/42 L 83/41 L [Left Brachial artery] O2 Saturation 96 95 If not protocol 6 6 6 : Oxygen Flow, liters/minute 06/07/23 06/07/23 06/08/23 22:17 23:52 00:04 Temperature 36.4 C L 36.6 C Heart Rate Heart Rate [ 100 102 H 96 Brachial] Heart Rate [ Radial] Respiratory 20 24 Rate Blood Pressure Blood Pressure 82/43 L 79/45 L 82/47 L [Left Brachial artery] O2 Saturation 94 96 If not protocol 6 6 : Oxygen Flow, liters/minute 06/08/23 06/08/23 06/08/23 00:34 01:01 02:30 Temperature Heart Rate Heart Rate [ 90 88 Brachial] Heart Rate [ 91 Radial] Respiratory 20 Rate Blood Pressure Blood Pressure 89/48 L 90/49 L 93/47 L [Left Brachial artery] O2 Saturation 96 If not protocol 6 : Oxygen Flow, liters/minute 06/08/23 06/08/23 06/08/23 04:09 06:17 08:06 Temperature 36.5 C 37.1 C Heart Rate Heart Rate [ 92 85 84 Brachial] Heart Rate [ Radial] Respiratory 22 26 H Rate Blood Pressure Blood Pressure 86/49 L 88/42 L 86/44 L [Left Brachial artery] O2 Saturation 97 98 If not protocol 6 : Oxygen Flow, liters/minute 06/08/23 11:06 Temperature 36.4 C L Heart Rate Heart Rate [ 84 Brachial] Heart Rate [ Radial] Respiratory 24 Rate Blood Pressure Blood Pressure 97/48 L [Left Brachial artery] O2 Saturation 98 If not protocol 6 : Oxygen Flow, liters/minute Oxygen O2 Source Simple Mask I&O (Last 24 Hrs): Intake and Output Totals x24h 06/06/23 06/07/23 06/08/23 23:59 23:59 23:59 Intake Total 1000 28957 44337 Output Total 06709 95116 Balance 1000 -3150 -310 General: Other (asleep, awakens to voice, answers and falls back asleep) HEENT: Mucous membr. moist/pink, Other (Long hair and long alicea) Neuro: Non Focal, Other (Lethargic. LOWER [place].) Cardiovascular: No murmurs Respiratory: No respiratory distress Abdomen: Soft, No tenderness, Other (Obese) Extremities: No edema, No tenderness/swelling - Results Results: Laboratory Results WBC 28.0 x10^3/uL (4.8-10.8) H 06/08/23 08:56 RBC 3.17 10^6/uL (4.70-6.10) L 06/08/23 08:56 Hgb 7.7 g/dL (14.0-18.0) L 06/08/23 08:56 Hct 24.6 % (42.0-52.0) L 06/08/23 08:56 MCV 77.6 fL (80.0-94.0) L 06/08/23 08:56 MCH 24.3 pg (27.0-31.0) L 06/08/23 08:56 MCHC 31.3 g/dL (32.0-36.0) L 06/08/23 08:56 RDW 17.9 % (12.0-15.0) H 06/08/23 08:56 Plt Count 259 10^3/uL (130-450) 06/08/23 08:56 MPV 9.9 fL (7.4-11.4) 06/08/23 08:56 Neut # (Auto) Not Reportable 06/08/23 08:56 Lymph # (Auto) Not Reportable 06/08/23 08:56 [place] # (Auto) Not Reportable 06/08/23 08:56 Eos # (Auto) Not Reportable 06/08/23 08:56 Baso # (Auto) Not Reportable 06/08/23 08:56 Absolute Nucleated RBC Not Reportable 06/08/23 08:56 Total Counted 100 06/08/23 08:56 Band Neuts % (Manual) 2 % (0-10) 06/08/23 08:56 Abnorm Lymph % (Manual) 0 % 06/08/23 08:56 Nucleated RBC % Not Reportable 06/08/23 08:56 Neutrophils # (Manual) 26.0 10^3/uL (1.5-6.6) H 06/08/23 08:56 Lymphocytes # (Manual) 1.4 10^3/uL (1.5-3.5) L 06/08/23 08:56 Monocytes # (Manual) 0.6 10^3/uL (0.0-1.0) 06/08/23 08:56 Eosinophils # (Manual) 0.0 10^3/uL (0-0.7) 06/08/23 08:56 Basophils # (Manual) 0.0 10^3/uL (0-0.1) 06/08/23 08:56 Differential Comment MANUAL DIFFERENTIAL 06/08/23 08:56 Manual Slide Review Indicated 06/07/23 09:50 Platelet Estimate NORMAL (130-450,000) (NORMAL) 06/06/23 23:04 Platelet Morphology NORMAL APPEARANCE (NORMAL) 06/06/23 23:04 RBC Morph Micro Appear 3+ ANISOCYTOSIS (NORMAL) 06/08/23 08:56 Sodium 136 mmol/L (135-145) 06/08/23 08:56 Potassium 4.7 mmol/L (3.5-4.5) H 06/08/23 08:56 Chloride 107 mmol/L (101-111) 06/08/23 08:56 Carbon Dioxide 22 mmol/L (21-32) 06/08/23 08:56 Anion Gap 7.0 (6-13) 06/08/23 08:56 BUN 88 mg/dL (6-20) H* 06/08/23 08:56 Creatinine 3.9 mg/dL (0.6-1.3) H 06/08/23 08:56 Estimated GFR (MDRD) 15 (>89) L 06/08/23 08:56 Glucose 170 mg/dL (74-104) H 06/08/23 08:56 POC Whole Bld Glucose 184 mg/dL (70 - 100) H 06/08/23 11:01 Estimat Average Glucose 192 mg/dL (70-100) H 06/07/23 04:52 Hemoglobin A1c % 8.3 % (4.27-6.07) H 06/07/23 04:52 Calcium 9.4 mg/dL (8.5-10.3) 06/08/23 08:56 Phosphorus 6.4 mg/dL (2.5-5.0) H 06/08/23 05:27 Magnesium 1.9 mg/dL (1.7-2.3) 06/08/23 05:27 Iron < 10 ug/dL (50-212) L 06/07/23 04:52 TIBC 171 ug/dL (250-450) L 06/07/23 04:52 % Saturation TNP 06/07/23 04:52 Transferrin 122 mg/dL (203-362) L 06/07/23 04:52 Total Bilirubin 0.4 mg/dL (0.2-1.0) 06/06/23 23:04 AST 9 IU/L (10-42) L 06/06/23 23:04 ALT 13 IU/L (10-60) 06/06/23 23:04 Alkaline Phosphatase 52 IU/L (42-121) 06/06/23 23:04 Total Protein 5.2 g/dL (6.4-8.9) L 06/06/23 23:04 Albumin 2.3 g/dL (3.2-5.5) L 06/06/23 23:04 Globulin 2.9 g/dL (2.1-4.2) 06/06/23 23:04 Albumin/Globulin Ratio 0.8 (1.0-2.2) L 06/06/23 23:04 Lipase 16 U/L (11-82) 06/06/23 23:04 Urine Color RED/BLOODY 06/07/23 03:55 Urine Clarity TURBID (CLEAR) 06/07/23 03:55 Urine pH 6.5 PH (5.0-7.5) 06/07/23 03:55 Ur Specific [place] 1.015 (1.002-1.030) 06/07/23 03:55 Urine Protein >=300 mg/dL (NEGATIVE) H 06/07/23 03:55 Urine Glucose (UA) 250 mg/dL (NEGATIVE) H 06/07/23 03:55 Urine Ketones 15 mg/dL (NEGATIVE) H 06/07/23 03:55 Urine Occult Blood LARGE (NEGATIVE) H 06/07/23 03:55 Urine Nitrite POSITIVE (NEGATIVE) H 06/07/23 03:55 Urine Bilirubin MODERATE (NEGATIVE) H 06/07/23 03:55 Urine Urobilinogen 4 E.U./dL (NORMAL) H 06/07/23 03:55 Ur Leukocyte Esterase MODERATE (NEGATIVE) H 06/07/23 03:55 Urine RBC TNTC /HPF (0-5) H 06/07/23 03:55 Urine WBC 6-10 /HPF (0-3) H 06/07/23 03:55 Ur Squamous Epith Cells RARE Squamous (<= Few) 06/07/23 03:55 Urine Bacteria Moderate /HPF (None Seen) H 06/07/23 03:55 Ur Microscopic Review INDICATED 06/07/23 03:55 Urine Culture Comments INDICATED 06/07/23 03:55 - Procedures Procedures: Procedures CLOSED ENDOSCOPIC BIOPSY OF LARGE INTESTINE (01/18/14) DILATION OF LEFT URETER WITH INTRALUMINAL DEVICE, ENDO (05/23/23) DILATION OF URETHRA, ENDO (05/23/23) DRAINAGE OF BLADDER WITH DRAINAGE DEVICE, ENDO (05/23/23) ENDOSC POLYPECTOMY OF LG INTEST (01/18/14) ENDOSCOPIC BIOPSY OF RECTUM (10/02/14) OTH & OPEN REPAIR INDIRECT INGUINAL HERNIA W GRFT OR PROSTH (04/15/13) REMOVAL OF INTRALUMINAL DEVICE FROM URETER, ENDO (05/23/23)
--- NOTE | 2023-06-08 16:21 | CONSULTATION NOTE ---
Palliative Care Consultation - Referral Referring Provider: Dr. Marcella Osborn Time of Visit: [id number] pm Referral setting: Hospitalized patient Referral Reason: Goals of Care - Information Sources Records reviewed: Previous records reviewed, Other Exam limitations: Clinical condition (patient unable to participate due to confusion/lethargy) - History of Present Illness Brief History of Present Illness: This is a 77-year-old gentleman whom I am reviewing the records, patient unable to participate in exam. Patient presented to the emergency room on 06/07 related to a fall, and appears to been on the floor for at least 30 minutes, and someone eventually checked on him. He was in the emergency room, was alert and oriented at that time, per records, but was moaning and calling out in pain despite mom moaning denied pain. Patient did present with an elevated white count of 31.9, and elevated creatinine of 3.[address] of the abdomen showed the left ureteral stent was in the proper position persistent left hydroureteronephrosis. There was new hyperdense material in the urinary bladder consistent with bleeding. The multiple pulmonary mets noted on his study earlier this month were present and had progressed. There was also an acute appearing left 11th rib fracture with overlying hematoma most likely due to his fall. Unfortunately they were unable to place a catheter, with hope to irrigate out contents, so was in contact with urology Dr. Fabian, who was familiar with patient with goal to take him to the OR. Patient was recently hospitalized 05/23/2023 2 16/01/2024 who presented with severe left flank and back pain. He was found at that time to have an obstructive stent, which she had replaced, as well as dilated significant urethral stenosis and place Keith catheter. Patient was consulted due to his stated goals of not wanting aggressive therapy, had canceled appointments with oncology, and had decided not to have aggressive surgery as he was referred to [facility] in [place] to hospice. Patient continues to in documentation state his goals, but has had difficulty with short-term memory, cognitive issues and poor insight into his limitations prior to this admit. He did insist on going home, though he had minimal support, had not followed through on identifying a DPOA, with significant concerns about how patient was going to manage overall. Hospice had agreed to take him if placement could be arranged, but patient had insisted on returning back to his home setting. Patient has had since surgery, for his significant metastatic bladder cancer and locally invasive bladder cancer obstructing urine output with gross hematuria and clot retention, resulting in OLVIN. He received his cystoscopy, clot evacuation, fulguration of bleeding areas and right ureteral stent placement, and left ureteral stent exchange. Prognosis per urology, and most likely accurate is 2 weeks or less. Patient does present with days to weeks in the context of rapidly progressive disease, poor intake, and unable to meet care needs. Palliative care has been asked to meet with patient regarding further support and exploration of his goals, patient is lethargic, not oriented to person or place, and dependent on previous stated statements of goals, including hospitalist when asked about CODE STATUS and DO NOT RESUSCITATE, willing to continue IV fluids and IV antibiotics at that time, but if he became septic, had an PA, stroke or arrhythmia did not want treatment. She had explained to him he might tonight if decompensated and he said that was okay.It has been of concern not able to identify a DPOA. Patient reports his sister is , and he is estranged from his neighbor when asked, though the accuracy of his answers are certainly of concern, but would be consistent with previous questions. He had spoken with one of the discharge planners, and was fine with being placed as well as going to hospice, patient's fallback is always "hurry hurry hurry". Medical/Surgical History - Past Medical History Cardiovascular: reports: Hypertension, High cholesterol Respiratory: reports: Shortness of breath (on 2L o2 NC, O2 sat 91%), Other Neuro: None, Other (concerns for insight/cognitive decline) Neuro: reports: None Endocrine/Autoimmune: reports: Type 2 diabetes GI: reports: Chronic constipation, Hemorrhoids : reports: Kidney stones, Other (bladder metastatic cancer. ) HEENT: reports: Chronic vision loss, Chronic hearing loss Psych: reports: None Musculoskeletal: reports: Other Derm: reports: None MRSA Hx?: No - Past Surgical History General: reports: Colonoscopy, Other - Substance History Use: Uses substance without health or social issues: Tobacco Abuse: Recurrent use of substance despite neg consequences: NONE Dependence: Experiences withdrawal or developed tolerances: NONE Social History - Living Situation Living Situation: Alone Support System: Patient appears to live alone, there was a neighbor identified Jayne Cabrales from last admit, when had been asked earlier about contacting neighbor by staff, patient had declined, she had last admit identified patient needed caregiving support and had been given permission to receive medical updates. May need to reach out if patient continues to deteriorate to see if any next of kin or other contacts that may need to be contacted regarding disposition and end of life planning i.e burial and home. Medications/Allergies - Medications Active Medication List: Active Medications Acetaminophen (Acetaminophen 325 Mg Tablet) 650 mg PO Q4HR PRN PRN Reason: Pain 1 to 4, or Fever Last Admin: 06/08/23 00:28 Dose: 650 mg Albuterol/Ipratropium (Ipratropium/Albuterol 3 Ml Neb) 3 ml INH Q6H PRN PRN Reason: Shortness of Air/Wheezing Docusate Sodium (Docusate Sodium 100 Mg Capsule) 100 mg PO DAILY [facility] Last Admin: 06/08/23 08:28 Dose: 100 mg Hydromorphone HCl (Hydromorphone 0.5 Mg/0.5 Ml Syringe) 0.5 mg IVP Q4H PRN PRN Reason: Severe Pain (Level 7-10) Last Admin: 06/08/23 11:47 Dose: 0.5 mg Levofloxacin (Levaquin 500 Mg/100 Ml) 500 mg in 100 mls @ 66.667 mls/hr IV Q48H [facility] Sodium Chloride (Normal Saline 0.9%) 1,000 mls @ 83.333 mls/hr IV .Q12H [facility] Last Admin: 06/08/23 08:32 Dose: 83.333 mls/hr Insulin Human Lispro (Insulin Lispro 300 Unit/3 Ml Pen) 1 - 5 unit SUBQ 0800,1200,1700,2100 [facility]; Protocol Ondansetron HCl (Ondansetron 4 Mg/2 Ml Vial) 4 mg IVP Q6HR PRN PRN Reason: Nausea / Vomiting Oxycodone HCl (Oxycodone 5 Mg Tablet) 5 mg PO TID [facility] Last Admin: 06/08/23 14:24 Dose: 5 mg Sodium Chloride (Sodium Chloride Flush 0.9% 10 Ml Syringe) 10 ml IVP PRN PRN PRN Reason: NEEDED PER PROVIDER ORDERS Sodium Chloride (Sodium Chloride Flush 0.9% 10 Ml Syringe) 10 ml IVP 0100,0900,1700 DK Last Admin: 06/08/23 09:36 Dose: 10 ml Aspirin [Aspir 81] 81 mg PO DAILY 02/20/15 Docusate Sodium 100 mg PO BID 02/20/15 Lisinopril 20 mg PO DAILY 02/20/15 Atorvastatin [Lipitor] 20 mg PO QPM 04/03/23 Insulin Glargine [Lantus Solostar] 45 units SUBQ HS 04/03/23 Ipratropium/Albuterol [Combivent Respimat] 1 puffs INH Q6HR PRN 04/03/23 Empagliflozin [Jardiance] 10 mg PO DAILY 05/18/23 Amlodipine Besylate [Norvasc] 10 mg PO DAILY 05/24/23 - Allergies Allergies/Adverse Reactions: Allergies Allergy/AdvReac Type Severity Reaction Status Date / Time guava Allergy Severe throat Verified 06/08/23 11:03 swells felisa Allergy Severe throat Verified 06/08/23 11:03 swells papaya Allergy Severe throat Verified 06/08/23 11:03 swells passion fruit Allergy Severe Unknown Verified 06/08/23 11:03 Penicillins Allergy Severe Rash Verified 06/06/23 21:56 Review of Systems - Constitutional Constitutional: reports: Weakness, Weight loss - Ears, Nose & Throat Ears, Nose & Throat: reports: Hearing loss - Respiratory Respiratory: reports: SOB at rest (oxygen on) - Genitourinary Genitourinary: reports: Other (keith with bright red urine) - Musculoskeletal Musculoskeletal: reports: Other (bedbound, seems very weak) - Integumentary Integumentary: reports: Nail changes (long nails / disheveled) - Neurological Neurological: reports: Memory problems - Psychiatric Psychiatric: reports: Other (seems to be lethargic and dreaming; diff to arouse to engage in conversation) - Endocrine Endocrine: reports: Diabetes type 2 - Hematologic/Lymphatic Hematologic/Lymph: reports: Other (currently on AB) - Other Findings Other Findings: patient unable to participate; despite moaning denies pain Physical Exam - Vital Signs Vital Signs: Vital Signs x48h Temp Pulse Resp BP Pulse Ox O2 Flow Rate 06/08/23 11:06 36.4 C L 84 24 97/48 L 98 6 06/08/23 08:06 37.1 C 84 26 H 86/44 L 98 6 - Physical Exam General Appearance: positive: Moderate distress, Lethargic ENT: positive: Dry mucous membranes Neck: positive: Trachea midline Respiratory: positive: Other (respiratory effort) Abdomen: positive: Soft Skin: positive: Pallor Neurologic/Psychiatric: positive: Unintelligible speech, Flat affect Palliative Care - POLST Patient has POLST: No Performance Status: Concern had been expressed on patient being able to manage at home with previous admit, did have a fall prior to admit. 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 He has had a hospice consult, a nd would be appropriate as far as prognosis and actually did have some understanding with hospice admit that he had metastatic cancer and would ultimately cause his , but had not made any plans for himself, and had little insight into how he was going to care for himself moving forward. Patien t though has been consistent with do not attempt resuscitation, no aggressive treatment, and most recently briefly interaction with DC planner chief okayed moving forward with placement and hospice. Unfortunately patient does not present with decision-making capacity in the context of weighing the nuances involved in making complicated decisions, history does reflect his values and choices to not pursue aggressive treatment. At this point, given previous conversations, it would be prudent to continue with IV fluids and antibiotics to see if patient responds in ability to participate further in decision making, though given previous concerns for cognition will need to move forward with goals to focus on comfort and DNAR, given his acute decline, may want to revisit in concern for prolonging suffering if no improvement with time trial of above, given previous expressed goals. There is no disagreement amongst healthcare team most likely has days to weeks and poor prognosis given his untreated aggressive metastatic cancer. Results - Lab Results Lab results reviewed: Yes Fish Bones: 06/08/23 08:56 06/08/23 08:56 Lab and Imaging Results: Lab Results x24hrs 06/08/23 06/08/23 06/08/23 Range/Units 11:01 08:56 08:56 WBC 28.0 H (4.8-10.8) x10^3/uL RBC 3.17 L (4.70-6.10) 10^6/uL Hgb 7.7 L (14.0-18.0) g/dL Hct 24.6 L (42.0-52.0) % MCV 77.6 L (80.0-94.0) fL MCH 24.3 L (27.0-31.0) pg MCHC 31.3 L (32.0-36.0) g/dL RDW 17.9 H (12.0-15.0) % Plt Count 259 (130-450) 10^3/uL MPV 9.9 (7.4-11.4) fL Neut # (Auto) Not Reportable Lymph # (Auto) Not Reportable [place] # (Auto) Not Reportable Eos # (Auto) Not Reportable Baso # (Auto) Not Reportable Absolute Nucleated RBC Not Reportable Total Counted 100 Band Neuts % (Manual) 2 (0 - 10) % Abnorm Lymph % (Manual) 0 % Nucleated RBC % Not Reportable Neutrophils # (Manual) 26.0 H (1.5-6.6) 10^3/uL Lymphocytes # (Manual) 1.4 L (1.5-3.5) 10^3/uL Monocytes # (Manual) 0.6 (0.0-1.0) 10^3/uL Eosinophils # (Manual) 0.0 (0-0.7) 10^3/uL Basophils # (Manual) 0.0 (0-0.1) 10^3/uL Differential Comment MANUAL DIFFERENTIAL RBC Morph Micro Appear 3+ ANISOCYTOSIS (NORMAL) Sodium 136 (135-145) mmol/L Potassium 4.7 H (3.5-4.5) mmol/L Chloride 107 (101-111) mmol/L Carbon Dioxide 22 (21-32) mmol/L Anion Gap 7.0 (6-13) BUN 88 H* (6-20) mg/dL Creatinine 3.9 H (0.6-1.3) mg/dL Estimated GFR (MDRD) 15 L (>89) Glucose 170 H (74-104) mg/dL POC Whole Bld Glucose 184 H (70 - 100) mg/dL Calcium 9.4 (8.5-10.3) mg/dL Phosphorus (2.5-5.0) mg/dL Magnesium (1.7-2.3) mg/dL 06/08/23 06/08/23 06/08/23 Range/Units 05:56 05:27 05:27 WBC 30.6 H (4.8-10.8) x10^3/uL RBC 3.06 L (4.70-6.10) 10^6/uL Hgb 7.1 L (14.0-18.0) g/dL Hct 23.8 L (42.0-52.0) % MCV 77.8 L (80.0-94.0) fL MCH 23.2 L (27.0-31.0) pg MCHC 29.8 L (32.0-36.0) g/dL RDW 17.8 H (12.0-15.0) % Plt Count 263 (130-450) 10^3/uL MPV 10.2 (7.4-11.4) fL Neut # (Auto) Lymph # (Auto) [place] # (Auto) Eos # (Auto) Baso # (Auto) Absolute Nucleated RBC Total Counted Band Neuts % (Manual) (0 - 10) % Abnorm Lymph % (Manual) % Nucleated RBC % Neutrophils # (Manual) (1.5-6.6) 10^3/uL Lymphocytes # (Manual) (1.5-3.5) 10^3/uL Monocytes # (Manual) (0.0-1.0) 10^3/uL Eosinophils # (Manual) (0-0.7) 10^3/uL Basophils # (Manual) (0-0.1) 10^3/uL Differential Comment RBC Morph Micro Appear (NORMAL) Sodium 137 (135-145) mmol/L Potassium 4.8 H (3.5-4.5) mmol/L Chloride 108 (101-111) mmol/L Carbon Dioxide 21 (21-32) mmol/L Anion Gap 8.0 (6-13) BUN 85 H* (6-20) mg/dL Creatinine 4.0 H (0.6-1.3) mg/dL Estimated GFR (MDRD) 15 L (>89) Glucose 177 H (74-104) mg/dL POC Whole Bld Glucose 171 H (70 - 100) mg/dL Calcium 9.3 (8.5-10.3) mg/dL Phosphorus 6.4 H (2.5-5.0) mg/dL Magnesium 1.9 (1.7-2.3) mg/dL 06/07/23 06/07/23 06/07/23 Range/Units 23:51 18:05 16:47 WBC (4.8-10.8) x10^3/uL RBC (4.70-6.10) 10^6/uL Hgb (14.0-18.0) g/dL Hct (42.0-52.0) % MCV (80.0-94.0) fL MCH (27.0-31.0) pg MCHC (32.0-36.0) g/dL RDW (12.0-15.0) % Plt Count (130-450) 10^3/uL MPV (7.4-11.4) fL Neut # (Auto) Lymph # (Auto) [place] # (Auto) Eos # (Auto) Baso # (Auto) Absolute Nucleated RBC Total Counted Band Neuts % (Manual) (0 - 10) % Abnorm Lymph % (Manual) % Nucleated RBC % Neutrophils # (Manual) (1.5-6.6) 10^3/uL Lymphocytes # (Manual) (1.5-3.5) 10^3/uL Monocytes # (Manual) (0.0-1.0) 10^3/uL Eosinophils # (Manual) (0-0.7) 10^3/uL Basophils # (Manual) (0-0.1) 10^3/uL Differential Comment RBC Morph Micro Appear (NORMAL) Sodium (135-145) mmol/L Potassium (3.5-4.5) mmol/L Chloride (101-111) mmol/L Carbon Dioxide (21-32) mmol/L Anion Gap (6-13) BUN (6-20) mg/dL Creatinine (0.6-1.3) mg/dL Estimated GFR (MDRD) (>89) Glucose (74-104) mg/dL POC Whole Bld Glucose 177 H 157 H 149 H (70 - 100) mg/dL Calcium (8.5-10.3) mg/dL Phosphorus (2.5-5.0) mg/dL Magnesium (1.7-2.3) mg/dL Impression and Recommendations - Palliative Care Impression: This is an unfortunate 77-year-old gentleman with complex social situation, and minimal social support. He now presents with severe complications regarding his metastatic bladder cancer, with urinary tract infection, acute kidney injury, and ongoing hematuria. Patient did receive surgery in the context of palliative intent to relieve symptoms. Patient has been fairly consistent in expressing his values regarding DNAR, no aggressive treatment, but does not present with a DPOA. Patient has also not demonstrated significant insight, but has been consistent with his messaging.Patient presents with poor prognosis, and expected further decline towards his end-of-life event and days to weeks time period. Recommendations/Counseling Done: 1. Goals of care. Patient unable to participate at time of palliative care consult in the context of goals of care conversation. He has been fairly consistent in his messaging regarding DNAR, and nonaggressive treatment for his extensive and rapidly progressing metastatic aggressive bladder cancer. He now is experiencing complications related to this, patient does not have DPOA, thus making this much more complex. Currently on IV fluids and antibiotics, would recommend continued time trial to see if patient better able to participate in his end of life planning though may have missed the window on this, but given progressing OLVIN and metastatic disease, may need to consider transition to comfort care to focus on relief of suffering. 60 minutes with review of chart, labs, previous admits, and coordination of care with hospital team, recommendations written and communicated. Will continue to follow, if disposition and discharge plan able to be completed, would recommend hospice support as transition if patient able to consent.
--- NOTE | 2023-06-08 17:20 | XRAY Report ---
PROCEDURE: OR C-Arm Procedure INDICATIONS: CYSTO FLUORO TIME: 0.5 MIN Dose area product: 243.11 [id number] TECHNIQUE: 3 fluoroscopic images of the abdomen and pelvis. COMPARISON: CT abdomen and pelvis without IV contrast 06/07/2023. FINDINGS: Intraoperative guidance provided for ureteral stent placement. IMPRESSION: Intraoperative guidance provided for ureteral stent placement. Reviewed by: Alfie Marcus MD on 06/08/2023 5:19 PM PST Approved by: Alfie Marcus MD on 06/08/2023 5:19 PM PST Station ID: [id number]
[2023-06-08] MEDS: INSULIN LISPRO 300 UNIT/3 ML PEN SUBQ SCH (17:21)
--- NOTE | 2023-06-08 20:46 | PROVIDER PROGRESS NOTE ---
Subjective - General Admit Date: 06/07/23 Procedure Date: 06/07/23 Post Op Days: 1 Procedure Performed: Cystoscopy, clot evacuation, right ureteral stent placement, left ureteral - Review of Systems Wound/Incisions: positive: Other (Herbert catheter clear effluent on minimal to no CBI) General: positive: Other (Somnolent, arousable, oriented x 3 but not alert) All Other Systems: positive: Other (Unable to obtain d/t patient's clinical condition) Objective - Patient Data Reviewed Vital Signs: Yes Vital Signs: Vital Signs x48h Temp Pulse Resp BP Pulse Ox O2 Flow Rate 06/08/23 20:12 36.6 C 93 18 92/51 L 93 6 06/08/23 16:00 36.6 C 91 22 112/45 L 93 6 Weight: Weight 06/06/23 06/07/23 06/08/23 23:59 23:59 23:59 Weight (kg) 85.3 kg 84 kg Intake & Output: Intake and Output Totals x24h 06/06/23 06/07/23 06/08/23 23:59 23:59 23:59 Intake Total 1000 74134 15307 Output Total 08677 30190 Balance 1000 -3150 -1010 - Lab Results Lab Results: 06/08/23 08:56 06/08/23 08:56 Other Lab Results: Lab Results x24hrs 06/08/23 06/08/23 06/08/23 Range/Units 20:22 16:15 11:01 WBC (4.8-10.8) x10^3/uL RBC (4.70-6.10) 10^6/uL Hgb (14.0-18.0) g/dL Hct (42.0-52.0) % MCV (80.0-94.0) fL MCH (27.0-31.0) pg MCHC (32.0-36.0) g/dL RDW (12.0-15.0) % Plt Count (130-450) 10^3/uL MPV (7.4-11.4) fL Neut # (Auto) Lymph # (Auto) [place] # (Auto) Eos # (Auto) Baso # (Auto) Absolute Nucleated RBC Total Counted Band Neuts % (Manual) (0 - 10) % Abnorm Lymph % (Manual) % Nucleated RBC % Neutrophils # (Manual) (1.5-6.6) 10^3/uL Lymphocytes # (Manual) (1.5-3.5) 10^3/uL Monocytes # (Manual) (0.0-1.0) 10^3/uL Eosinophils # (Manual) (0-0.7) 10^3/uL Basophils # (Manual) (0-0.1) 10^3/uL Differential Comment RBC Morph Micro Appear (NORMAL) Sodium (135-145) mmol/L Potassium (3.5-4.5) mmol/L Chloride (101-111) mmol/L Carbon Dioxide (21-32) mmol/L Anion Gap (6-13) BUN (6-20) mg/dL Creatinine (0.6-1.3) mg/dL Estimated GFR (MDRD) (>89) Glucose (74-104) mg/dL POC Whole Bld Glucose 149 H 182 H 184 H (70 - 100) mg/dL Calcium (8.5-10.3) mg/dL Phosphorus (2.5-5.0) mg/dL Magnesium (1.7-2.3) mg/dL 06/08/23 06/08/23 06/08/23 Range/Units 08:56 08:56 05:56 WBC 28.0 H (4.8-10.8) x10^3/uL RBC 3.17 L (4.70-6.10) 10^6/uL Hgb 7.7 L (14.0-18.0) g/dL Hct 24.6 L (42.0-52.0) % MCV 77.6 L (80.0-94.0) fL MCH 24.3 L (27.0-31.0) pg MCHC 31.3 L (32.0-36.0) g/dL RDW 17.9 H (12.0-15.0) % Plt Count 259 (130-450) 10^3/uL MPV 9.9 (7.4-11.4) fL Neut # (Auto) Not Reportable Lymph # (Auto) Not Reportable [place] # (Auto) Not Reportable Eos # (Auto) Not Reportable Baso # (Auto) Not Reportable Absolute Nucleated RBC Not Reportable Total Counted 100 Band Neuts % (Manual) 2 (0 - 10) % Abnorm Lymph % (Manual) 0 % Nucleated RBC % Not Reportable Neutrophils # (Manual) 26.0 H (1.5-6.6) 10^3/uL Lymphocytes # (Manual) 1.4 L (1.5-3.5) 10^3/uL Monocytes # (Manual) 0.6 (0.0-1.0) 10^3/uL Eosinophils # (Manual) 0.0 (0-0.7) 10^3/uL Basophils # (Manual) 0.0 (0-0.1) 10^3/uL Differential Comment MANUAL DIFFERENTIAL RBC Morph Micro Appear 3+ ANISOCYTOSIS (NORMAL) Sodium 136 (135-145) mmol/L Potassium 4.7 H (3.5-4.5) mmol/L Chloride 107 (101-111) mmol/L Carbon Dioxide 22 (21-32) mmol/L Anion Gap 7.0 (6-13) BUN 88 H* (6-20) mg/dL Creatinine 3.9 H (0.6-1.3) mg/dL Estimated GFR (MDRD) 15 L (>89) Glucose 170 H (74-104) mg/dL POC Whole Bld Glucose 171 H (70 - 100) mg/dL Calcium 9.4 (8.5-10.3) mg/dL Phosphorus (2.5-5.0) mg/dL Magnesium (1.7-2.3) mg/dL 06/08/23 06/08/23 06/07/23 Range/Units 05:27 05:27 23:51 WBC 30.6 H (4.8-10.8) x10^3/uL RBC 3.06 L (4.70-6.10) 10^6/uL Hgb 7.1 L (14.0-18.0) g/dL Hct 23.8 L (42.0-52.0) % MCV 77.8 L (80.0-94.0) fL MCH 23.2 L (27.0-31.0) pg MCHC 29.8 L (32.0-36.0) g/dL RDW 17.8 H (12.0-15.0) % Plt Count 263 (130-450) 10^3/uL MPV 10.2 (7.4-11.4) fL Neut # (Auto) Lymph # (Auto) [place] # (Auto) Eos # (Auto) Baso # (Auto) Absolute Nucleated RBC Total Counted Band Neuts % (Manual) (0 - 10) % Abnorm Lymph % (Manual) % Nucleated RBC % Neutrophils # (Manual) (1.5-6.6) 10^3/uL Lymphocytes # (Manual) (1.5-3.5) 10^3/uL Monocytes # (Manual) (0.0-1.0) 10^3/uL Eosinophils # (Manual) (0-0.7) 10^3/uL Basophils # (Manual) (0-0.1) 10^3/uL Differential Comment RBC Morph Micro Appear (NORMAL) Sodium 137 (135-145) mmol/L Potassium 4.8 H (3.5-4.5) mmol/L Chloride 108 (101-111) mmol/L Carbon Dioxide 21 (21-32) mmol/L Anion Gap 8.0 (6-13) BUN 85 H* (6-20) mg/dL Creatinine 4.0 H (0.6-1.3) mg/dL Estimated GFR (MDRD) 15 L (>89) Glucose 177 H (74-104) mg/dL POC Whole Bld Glucose 177 H (70 - 100) mg/dL Calcium 9.3 (8.5-10.3) mg/dL Phosphorus 6.4 H (2.5-5.0) mg/dL Magnesium 1.9 (1.7-2.3) mg/dL - Current Medications Current Medications: Current Medications Generic Name Dose Route Start Last Admin Trade Name Emilee PRN Reason Stop Dose Admin Acetaminophen 650 mg 06/07/23 03:50 06/08/23 00:28 Acetaminophen 325 Mg Tablet PO 650 mg Q4HR PRN Administration Pain 1 to 4, or Fever Docusate Sodium 100 mg 06/07/23 09:00 06/08/23 08:28 Docusate Sodium 100 Mg Capsule PO 100 mg DAILY DK Administration Hydromorphone HCl 0.5 mg 06/07/23 04:01 06/08/23 11:47 Hydromorphone 0.5 Mg/0.5 Ml Syringe IVP 0.5 mg Q4H PRN Administration Severe Pain (Level 7-10) Insulin Human Lispro 1 - 5 unit 06/08/23 17:00 06/08/23 17:21 Insulin Lispro 300 Unit/3 Ml Pen SUBQ 2 unit 0800,1200,1700,2100 [facility] Administration Protocol Oxycodone HCl 5 mg 06/07/23 06:00 06/08/23 14:24 Oxycodone 5 Mg Tablet PO 5 mg TID DK Administration Sodium Chloride 10 ml 06/07/23 09:00 06/08/23 16:46 Sodium Chloride Flush 0.9% 10 Ml Syringe IVP Not Given 0100,0900,1700 [facility] - Physical Exam General Appearance: positive: Lethargic Cardiovascular: positive: Tachycardia Abdomen: positive: Non-tender, Other (22 [place] three-way Herbert catheter in place with clear effluent no clots on minimal to no CBI) ABX Reporting Has patient been on IV antibiotics over the past 48 hours?: Yes Impression/Plan - Problem List Problem List: 77-year-old male with diffuse large volume and aggressive metastatic bladder cancer with large locally invasive bladder mass on the left obstructing left kidney. Here for complex medical issues including significant OLVIN in the setting of clot retention and likely obstructed left ureter despite stent in place. June 07, 2023 patient had cystoscopy, clot evacuation, fulguration of bleed ing areas, right ureteral stent placement, left ureteral dilation, left ureteral stent placement. Kidney function has not improved. Mental status has not improved. I suspect this patient has days to weeks to live. He has expressed he does not want advanced or aggressive care. He is DNR. Appreciated palliative care consult and evaluation. Consider comfort care Catheter can remain in place for comfort, or can be removed at patient or team's discretion. Avoid nephrotoxic agents. Continue IV fluids as patient is not drinking. Urology signing off, call with questions
[2023-06-08] MEDS: DEXTROSE 5%-0.9% NACL 1,000 ML IV SCH (20:49)
[2023-06-09 07:22] LABS: BASOPHILS % (AUTO) 0.1 %; EOSINOPHILS % (AUTO) 0.7 %; HCT - HEMATOCRIT 25.3 % (42.0-52.0); HGB - HEMOGLOBIN 7.6 g/dL (14.0-18.0); LYMPHOCYTES % (AUTO) 6.2 %; MEAN CORPUSCULAR HEMOGLOBIN 23.7 pg (27.0-31.0); MEAN CORPUSCULAR VOLUME 78.8 fL (80.0-94.0); MEAN PLATELET VOLUME 9.7 fL (7.4-11.4); MONOCYTES % (AUTO) 5.6 %; NEUTROPHILS % (AUTO) 83.7 %; PLT - PLATELET COUNT 236 10^3/uL (130-450); RED BLOOD COUNT 3.21 10^6/uL (4.70-6.10); RED CELL DISTRIBUTION WIDTH 17.7 % (12.0-15.0); WHITE BLOOD COUNT 23.1 x10^3/uL (4.8-10.8)
[2023-06-09 07:29] LABS: ABNORMAL LYMPHS % (MANUAL) 0 %
[2023-06-09 07:47] LABS: BAND NEUTROPHILS % (MANUAL) 3 %; DIFFERENTIAL COMMENT MANUAL DIFFERENTIAL; LYMPHOCYTES # (MANUAL) 1.4 10^3/uL (1.5-3.5); LYMPHOCYTES % (MANUAL) 5 %; MONOCYTES # (MANUAL) 0.2 10^3/uL (0.0-1.0); NEUTROPHILS # (MANUAL) 21.5 10^3/uL (1.5-6.6); RBC MORPHOLOGY (MULTIPLE) 3+ ANISOCYTOSIS (NORMAL); REACTIVE LYMPHS % (MANUAL) 1 %
[2023-06-09 07:50] LABS: CALCIUM 9.4 mg/dL (8.5-10.3); CREATININE 2.6 mg/dL (0.6-1.3); POTASSIUM 4.3 mmol/L (3.5-4.5)
--- NOTE | 2023-06-09 08:53 | PROVIDER PROGRESS NOTE ---
Assessment/Plan - Problem List (1) AMS (altered mental status) Assessment/Plan: He presented confused and was found to have a recurrent UTI with bladder outlet obstruction. Since returning from the OR he has not really woken up, he is too sleepy to eat We are giving him as needed Ativan and as needed narcotics when it appears that he is in distress Plan: I will de-escalate his diabetic diet to a pured diet, to try to feed him when he awakens Continue with supporting him and treating his symptoms I requested a palliative care consult but he was too obtunded to participate, we are therefore continuing with a goal of comfort for him. There is no DPOA or next of kin to contact to get directions (2) Bladder outlet obstruction Assessment/Plan: CT showed : L stent in place, persistent L hydroureternephrosis. Increased prominence of R hydronephrosis and mild R hydroureter. Blood clots noted in bladder. Pt has a Hx of bladder CA with L sided ureter compression, hydro-nephrosis, resulting in prior L stent placement. Right and left ureter stents were placed by urology yesterday 06/07 with success. 200 cc of clot in bladder removed. He has had b;ladder irrigation and the blood has cleared This has been a ongoing problem due to his complex Hx of bladder CA however pt has refused to follow up with oncology for treatment (missed his appt last week). Urologist spoke to me today, feels he has 2 weeks to live. Plan: Appreciate Dr Fabian speaking to me today. Will keep Herbert in place, now for comfort measures (3) Urinary tract infection Conclusion/Plan: Pt with a Hx of bladder CA, had UA in ER showing RBC's > 300 urine protein, glucose 250, urine ketones 15, (+) nitrites, moderate bilirubin, WBC's 6-10. Pt denied any fever or chills. On CBC his WBC was 31.9 Plan: Per Urology recommendations, pt will be treated with Levaquin and urine will be cultured for sensitivity. Urology would like us to dose Levaquin with renal adjustment. (4) OLVIN (acute kidney injury) Conclusion/Plan: In ER, pt found to have OLVIN with creatinine of 3.7, elevated from his baseline creat which was 0.9 days ago. Pt was on the floor for about 30 min prior to EMS being called. IV fluids given. Treating UTI as noted. Pt also underwent stent placement by Urologist to help with ureter obstruction. 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 Pt recently seen in ED on the and was also admitted here at [facility] 05-23-23 to 05-28-23. Both visits related to complications with bladder tumor causing L sided ureter compression, hydro-nephrosis, resulting in needing stent placement. Recent CT scans show multiple rapidly enlarging pulm metastases. Per ER note, pt has declined Hospice care and recently failed to follow up with oncologist. Pt does not appear to have a good prognosis and has had this explained to him but he does not wanting any aggressive treatment. Plan: Palliative Care consult requested today (6) Fall at home Pt presented to ER via EMS for a ground level fall that occurred yesterday night while getting out of bed to go to the bathroom, states that he lost his balanced and fell to the floor but denies any head injury or LOC. Pt remained on the floor for around 30 min due to inability to pick himself up. Per ER note pt denied any pain but appeared to be uncomfortable via painful moans. Plan: PT and OT evals and orthostatic VS checks planned when he is no longer somnolent. I will cancel PT and OT evals for now (7) Rib fracture Conclusion/Plan: Pt presented to ER via EMS for a ground level fall that occurred while getting out of bed to go to the bathroom, states that he lost his balanced and fell to the floor but denies any head injury or LOC. Pt remained on the floor for around 30 min due to inability to pick himself up. Per ER note pt denied any pain but appeared to be uncomfortable via painful moans. CT Chest/Abdo: 11th rib comminuted fracture. No signs of a pnuemothorax at that point. Pt was on 97% O2 w/ 2L nasal canula. Lung sounds bilat showed scattered rhonchi. IS was ordered but he is too somnolent to participate Plan: Pain meds as needed Palliative Care consult appreciated (8) Chronic respiratory failure Conclusion/Plan: Pt on suppl O2 for his COPD PLan: Cont suppl O2, with target saturation 88-92% (9) DM type 2 Conclusion/Plan: He was on Insulin and Jardiance at home Plan: Cont hypoglycemia prtocol, fingerstick checks, DM diet Cont iv fluids with D5 since is somnolent and not eating I will de-escalate his diet from a carb controlled diet to pured, may be he will take easily digestable food when being fed (10) Hx HTN Conclusion/Plan: BP is running 90's Plan: Hold his BP meds Cont iv with NS (11) Anemia Conclusion/Plan: Pt found to have anemia, microcytic. Hgb 8.4, MCV 77.9 Plan: Will monitor CBC daily. We may consider transfusion only if he has a significant drop in hemoglobin - Current Meds Current Meds: Current Medications Generic Name Dose Route Start Last Admin Trade Name Freq PRN Reason Stop Dose Admin Acetaminophen 650 mg 06/07/23 03:50 06/08/23 00:28 Acetaminophen 325 Mg Tablet PO 650 mg Q4HR PRN Administration Pain 1 to 4, or Fever Docusate Sodium 100 mg 06/07/23 09:00 06/09/23 08:39 Docusate Sodium 100 Mg Capsule PO 100 mg DAILY DK Administration Dextrose/Sodium Chloride 1,000 mls @ 50 mls/hr 06/08/23 20:00 06/08/23 20:49 D5ns IV 50 mls/hr .Q20H DK Administration Insulin Human Lispro 1 - 5 unit 06/08/23 17:00 06/09/23 08:34 Insulin Lispro 300 Unit/3 Ml Pen SUBQ Not Given 0800,1200,1700,2100 DK Protocol Oxycodone HCl 5 mg 06/07/23 06:00 06/09/23 05:01 Oxycodone 5 Mg Tablet PO 5 mg TID DK Administration Sodium Chloride 10 ml 06/07/23 09:00 06/09/23 08:35 Sodium Chloride Flush 0.9% 10 Ml Syringe IVP Not Given 0100,0900,1700 DK - Lab Result Fish Bone Diagrams: 06/09/23 07:16 06/09/23 07:16 - Additional Planning My Orders: My Active Orders 06/08/23 17:00 Insulin Lispro [Humalog Kwikpen U-100] 1 - 5 unit SUBQ 0800,1200,1700,2100 06/08/23 20:00 Dextrose 5%-0.9% NaCl [D5ns] 1,000 ml IV 50 mls/hr 06/09/23 08:48 LORazepam INJ [Ativan Inj (Vial)] 0.5 mg IVP Q2H PRN Morphine Oral Soln [Roxanol] 10 mg PO Q2HR PRN 06/09/23 08:49 HYDROmorphone 0.5MG SYRINGE [Dilaudid 0.5MG Syringe] 1 mg IVP Q2H PRN 06/09/23 Lunch DIET [Dysphagia - Puree] [DIET] Subjective - Subjective Patient Reports: Resting Comfortably Nursing Reports: Other (He wakes up intermittently, with moaning, gets turned and repositioned, gets as needed Ativan and as needed narcotics) Objective Vital Signs: Vital Signs - 24 hr 06/08/23 06/08/23 06/08/23 11:06 16:00 20:12 Temperature 36.4 C L 36.6 C 36.6 C Heart Rate [ 84 91 93 Brachial] Respiratory 24 22 18 Rate Blood Pressure 97/48 L 112/45 L 92/51 L [Left Brachial artery] O2 Saturation 98 93 93 If not protocol 6 6 6 : Oxygen Flow, liters/minute 06/08/23 06/09/23 06/09/23 23:36 01:50 07:30 Temperature 36.6 C 36.5 C Heart Rate [ 92 95 Brachial] Respiratory 14 20 20 Rate Blood Pressure 88/48 L 109/54 L [Left Brachial artery] O2 Saturation 93 90 L If not protocol 6 6 : Oxygen Flow, liters/minute Oxygen O2 Source Nasal cannula I&O (Last 24 Hrs): Intake and Output Totals x24h 06/07/23 06/08/23 06/09/23 23:59 23:59 23:59 Intake Total 44248 90093 Output Total 16281 59242 800 Balance -3150 110 -800 General: Other (Obtunded, withdraws to painful stimuli) HEENT: Mucous membr. moist/pink, Other (Long hair and long alicea and is disheveled) Neck: No JVD Neuro: Other (Mostly asleep, withdraws to pain) Cardiovascular: No murmurs Respiratory: No respiratory distress, Breath sounds nml Abdomen: Soft, No tenderness Extremities: No edema - Results Results: Laboratory Results WBC 23.1 x10^3/uL (4.8-10.8) H 06/09/23 07:16 RBC 3.21 10^6/uL (4.70-6.10) L 06/09/23 07:16 Hgb 7.6 g/dL (14.0-18.0) L 06/09/23 07:16 Hct 25.3 % (42.0-52.0) L 06/09/23 07:16 MCV 78.8 fL (80.0-94.0) L 06/09/23 07:16 MCH 23.7 pg (27.0-31.0) L 06/09/23 07:16 MCHC 30.0 g/dL (32.0-36.0) L 06/09/23 07:16 RDW 17.7 % (12.0-15.0) H 06/09/23 07:16 Plt Count 236 10^3/uL (130-450) 06/09/23 07:16 MPV 9.7 fL (7.4-11.4) 06/09/23 07:16 Neut # (Auto) Not Reportable 06/09/23 07:16 Lymph # (Auto) Not Reportable 06/09/23 07:16 Sunflower # (Auto) Not Reportable 06/09/23 07:16 Eos # (Auto) Not Reportable 06/09/23 07:16 Baso # (Auto) Not Reportable 06/09/23 07:16 Absolute Nucleated RBC Not Reportable 06/09/23 07:16 Total Counted 100 06/09/23 07:16 Band Neuts % (Manual) 3 % (0-10) 06/09/23 07:16 Reactive Lymphs % (Man) 1 % 06/09/23 07:16 Abnorm Lymph % (Manual) 0 % 06/09/23 07:16 Nucleated RBC % Not Reportable 06/09/23 07:16 Neutrophils # (Manual) 21.5 10^3/uL (1.5-6.6) H 06/09/23 07:16 Lymphocytes # (Manual) 1.4 10^3/uL (1.5-3.5) L 06/09/23 07:16 Monocytes # (Manual) 0.2 10^3/uL (0.0-1.0) 06/09/23 07:16 Eosinophils # (Manual) 0.0 10^3/uL (0-0.7) 06/09/23 07:16 Basophils # (Manual) 0.0 10^3/uL (0-0.1) 06/09/23 07:16 Differential Comment MANUAL DIFFERENTIAL 06/09/23 07:16 Manual Slide Review Indicated 06/07/23 09:50 Platelet Estimate NORMAL (130-450,000) (NORMAL) 06/06/23 23:04 Platelet Morphology NORMAL APPEARANCE (NORMAL) 06/06/23 23:04 RBC Morph Micro Appear 3+ ANISOCYTOSIS (NORMAL) 06/09/23 07:16 Sodium 143 mmol/L (135-145) 06/09/23 07:16 Potassium 4.3 mmol/L (3.5-4.5) 06/09/23 07:16 Chloride 114 mmol/L (101-111) H 06/09/23 07:16 Carbon Dioxide 21 mmol/L (21-32) 06/09/23 07:16 Anion Gap 8.0 (6-13) 06/09/23 07:16 BUN 82 mg/dL (6-20) H* 06/09/23 07:16 Creatinine 2.6 mg/dL (0.6-1.3) H 06/09/23 07:16 Estimated GFR (MDRD) 24 (>89) L 06/09/23 07:16 Glucose 210 mg/dL (74-104) H 06/09/23 07:16 POC Whole Bld Glucose 199 mg/dL (70 - 100) H 06/09/23 07:31 Estimat Average Glucose 192 mg/dL (70-100) H 06/07/23 04:52 Hemoglobin A1c % 8.3 % (4.27-6.07) H 06/07/23 04:52 Lactic Acid 1.3 mmol/L (0.5-2.2) 06/09/23 07:16 Calcium 9.4 mg/dL (8.5-10.3) 06/09/23 07:16 Phosphorus 6.4 mg/dL (2.5-5.0) H 06/08/23 05:27 Magnesium 1.9 mg/dL (1.7-2.3) 06/08/23 05:27 Iron < 10 ug/dL (50-212) L 06/07/23 04:52 TIBC 171 ug/dL (250-450) L 06/07/23 04:52 % Saturation TNP 06/07/23 04:52 Transferrin 122 mg/dL (203-362) L 06/07/23 04:52 Total Bilirubin 0.4 mg/dL (0.2-1.0) 06/06/23 23:04 AST 9 IU/L (10-42) L 06/06/23 23:04 ALT 13 IU/L (10-60) 06/06/23 23:04 Alkaline Phosphatase 52 IU/L (42-121) 06/06/23 23:04 Total Protein 5.2 g/dL (6.4-8.9) L 06/06/23 23:04 Albumin 2.3 g/dL (3.2-5.5) L 06/06/23 23:04 Globulin 2.9 g/dL (2.1-4.2) 06/06/23 23:04 Albumin/Globulin Ratio 0.8 (1.0-2.2) L 06/06/23 23:04 Lipase 16 U/L (11-82) 06/06/23 23:04 Urine Color RED/BLOODY 06/07/23 03:55 Urine Clarity TURBID (CLEAR) 06/07/23 03:55 Urine pH 6.5 PH (5.0-7.5) 06/07/23 03:55 Ur Specific [place] 1.015 (1.002-1.030) 06/07/23 03:55 Urine Protein >=300 mg/dL (NEGATIVE) H 06/07/23 03:55 Urine Glucose (UA) 250 mg/dL (NEGATIVE) H 06/07/23 03:55 Urine Ketones 15 mg/dL (NEGATIVE) H 06/07/23 03:55 Urine Occult Blood LARGE (NEGATIVE) H 06/07/23 03:55 Urine Nitrite POSITIVE (NEGATIVE) H 06/07/23 03:55 Urine Bilirubin MODERATE (NEGATIVE) H 06/07/23 03:55 Urine Urobilinogen 4 E.U./dL (NORMAL) H 06/07/23 03:55 Ur Leukocyte Esterase MODERATE (NEGATIVE) H 06/07/23 03:55 Urine RBC TNTC /HPF (0-5) H 06/07/23 03:55 Urine WBC 6-10 /HPF (0-3) H 06/07/23 03:55 Ur Squamous Epith Cells RARE Squamous (<= Few) 06/07/23 03:55 Urine Bacteria Moderate /HPF (None Seen) H 06/07/23 03:55 Ur Microscopic Review INDICATED 06/07/23 03:55 Urine Culture Comments INDICATED 06/07/23 03:55 - Procedures Procedures: Procedures CLOSED ENDOSCOPIC BIOPSY OF LARGE INTESTINE (01/18/14) DILATION OF LEFT URETER WITH INTRALUMINAL DEVICE, ENDO (05/23/23) DILATION OF URETHRA, ENDO (05/23/23) DRAINAGE OF BLADDER WITH DRAINAGE DEVICE, ENDO (05/23/23) ENDOSC POLYPECTOMY OF LG INTEST (01/18/14) ENDOSCOPIC BIOPSY OF RECTUM (01/18/14) OTH & OPEN REPAIR INDIRECT INGUINAL HERNIA W GRFT OR PROSTH (04/15/13) REMOVAL OF INTRALUMINAL DEVICE FROM URETER, ENDO (05/23/23)
[2023-06-09] MEDS: MORPHINE SOL 10 MG/0.5 ML ORAL SYRINGE PO PRN (10:08)
[2023-06-09] MEDS: LORazepam 2 MG/ML VIAL IVP PRN (10:08)
[2023-06-09] MEDS: HYDROmorphone 1 MG/ML CARPUJECT IVP PRN (16:21)
[2023-06-09] MEDS: levoFLOXacin 750 MG/150 ML 750 MG/150 ML BAG IV SCH (17:10)
[2023-06-10] MEDS: ZINC OXIDE 20% OINT 30 GM TUBE TOP PRN (05:34)
[2023-06-10] MEDS: ACETAMINOPHEN 1,000 MG/100 ML 1,000 MG/100 ML BAG IV ONE (06:33)
[2023-06-10] MEDS: IPRATROPIUM/ALBUTEROL 3 ML NEB INH PRN (07:15)
[2023-06-10] MEDS ORDERED: ACETAMINOPHEN 1,000 MG/100 ML 1,000 MG/100 ML BAG IV PRN (09:09)
--- NOTE | 2023-06-10 09:12 | PROVIDER PROGRESS NOTE ---
Assessment/Plan - Problem List (1) AMS (altered mental status) Assessment/Plan: When the patient is slightly more awake today, he moans rhythmically, garbles his responses, knows he is in the hospital, but is not oriented to self or time. He did not pass his swallow screen today. Nurse tried to suction his throat with Yankauer and he does not cooperate, bites on the Yankauer tube Plan: I will stop his diet and order n.p.o. except sips and chips. I will order [id number] glucose fingerstick checks every 6 hours, not ac & hs I will order sliding scale insulin coverage every 6 hours I will change all his necessary p.o. meds to IV form I will order a Scopolamine patch Appreciate Palliative Care input, who suggested a time trial of his iv fluids and iv antibx He is not oriented or awake enough to be able to tell us if we should stop his IV fluids and IV antibiotics, so these will be continued with a time trial planned. He never set up a DPOA for us to get directions from. Continue with meds to keep his pain under control, cont oral care and treat any anxiety. (2) Bladder outlet obstruction Assessment/Plan: CT showed : L stent in place, persistent L hydroureternephrosis. Increased prominence of R hydronephrosis and mild R hydroureter. Blood clots noted in bladder. Pt has a Hx of bladder CA with L sided ureter compression, hydro-nephrosis, resulting in prior L stent placement. Right and left ureter stents were placed by urology yesterday 06/07 with success. 200 cc of clot in bladder removed. He has had b;ladder irrigation and the blood has cleared This has been a ongoing problem due to his complex Hx of bladder CA however pt has refused to follow up with oncology for treatment (missed his appt last week). Urologist felt he has 2 weeks to live. Plan: Will keep Herbert in place, now for comfort measures (3) Urinary tract infection Conclusion/Plan: Pt with a Hx of bladder CA, had UA in ER showing RBC's > 300 urine protein, glucose 250, urine ketones 15, (+) nitrites, moderate bilirubin, WBC's 6-10. Pt denied any fever or chills. On CBC his WBC was 31.9 Plan: Per Urology recommendations, pt will be treated with Levaquin with renal adjustment.and urine will be cultured for sensitivity. I will give him a time trial with a total 5-day course of antibiotics, stop date after that (4) OLVIN (acute kidney injury) Conclusion/Plan: In ER, pt found to have OLVIN with creatinine of 3.7, elevated from his baseline creat which was 0.9 days ago. Pt was on the floor for about 30 min prior to EMS being called. IV fluids given. Treating UTI as noted. Pt also underwent stent placement by Urologist to help with ureter obstruction. Plan: Cont iv fluids, since he is somnolent and not eating or drinking yet again today. 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 Pt recently seen in ED on the and was also admitted here at [facility] 05-23-23 to 05-28-23. Both visits related to complications with bladder tumor causing L sided ureter compression, hydro-nephrosis, resulting in needing stent placement. Recent CT scans show multiple rapidly enlarging pulm metastases. Per ER note, pt has declined Hospice care and recently failed to follow up with oncologist. Pt does not appear to have a good prognosis and has had this explained to him but he does not wanting any aggressive treatment. Plan: Palliative Care consult and recommendations appreciated (6) Fall at home Pt presented to ER via EMS for a ground level fall that occurred yesterday night while getting out of bed to go to the bathroom, states that he lost his balanced and fell to the floor but denies any head injury or LOC. Pt remained on the floor for around 30 min due to inability to pick himself up. Per ER note pt denied any pain but appeared to be uncomfortable via painful moans. Plan: PT and OT evals and orthostatic VS checks planned when he is no longer somnolent. I cancelled PT and OT evals for now (7) Rib fracture Conclusion/Plan: Pt presented to ER via EMS for a ground level fall that occurred while getting out of bed to go to the bathroom, states that he lost his balanced and fell to the floor but denies any head injury or LOC. Pt remained on the floor for around 30 min due to inability to pick himself up. Per ER note pt denied any pain but appeared to be uncomfortable via painful moans. CT Chest/Abdo: 11th rib comminuted fracture. No signs of a pnuemothorax at that point. Pt was on 97% O2 w/ 2L nasal canula. Lung sounds bilat showed scattered rhonchi. IS was ordered but he is too somnolent to participate Plan: Pain meds as needed Palliative Care consult and recommendations appreciated (8) Chronic respiratory failure Conclusion/Plan: Pt on suppl O2 for his COPD PLan: Cont suppl O2, with target saturation 88-92% (9) DM type 2 Conclusion/Plan: He was on Insulin and Jardiance at home Plan: Cont hypoglycemia prtocol, fingerstick checks, DM diet Cont iv fluids with D5 since is somnolent and not eating Today I will de-escalate his diet from a pured to NPO except sips and chips (10) Hx HTN Conclusion/Plan: BP is running 90's Plan: Hold his BP meds Cont iv with NS (11) Anemia Conclusion/Plan: Pt found to have anemia, microcytic. Hgb 8.4, MCV 77.9 Plan: Will monitor CBC daily. We may consider transfusion only if he has a significant drop in hemoglobin - Current Meds Current Meds: Current Medications Generic Name Dose Route Start Last Admin Trade Name Freq PRN Reason Stop Dose Admin Albuterol/Ipratropium 3 ml 06/07/23 06:02 06/10/23 07:15 Ipratropium/Albuterol 3 Ml Neb INH 3 ml Q6H PRN Administration Shortness of Air/Wheezing Docusate Sodium 100 mg 06/07/23 09:00 06/10/23 08:50 Docusate Sodium 100 Mg Capsule PO Not Given DAILY DK Hydromorphone HCl 1 mg 06/09/23 08:49 06/10/23 08:44 Hydromorphone 1 Mg/Ml Carpuject IVP 1 mg Q2H PRN Administration Severe Pain (Level 7-10) Levofloxacin 750 mg in 150 mls @ 100 mls/hr 06/09/23 18:00 06/09/23 19:38 Levaquin 750 Mg/150 Ml IV Infused Q48H DK Infusion Dextrose/Sodium Chloride 1,000 mls @ 50 mls/hr 06/08/23 20:00 06/09/23 16:20 D5ns IV 50 mls/hr .Q20H DK Administration Insulin Human Lispro 1 - 5 unit 06/08/23 17:00 06/10/23 08:43 Insulin Lispro 300 Unit/3 Ml Pen SUBQ 3 unit 0800,1200,1700,2100 [facility] Administration Protocol Lorazepam 0.5 mg 06/09/23 08:48 06/09/23 10:08 Lorazepam 2 Mg/Ml Vial IVP 0.5 mg Q2H PRN Administration Anxiety Morphine Sulfate 10 mg 06/09/23 08:48 06/10/23 06:34 Morphine Miroslava 10 Mg/0.5 Ml Oral Syringe PO 10 mg Q2HR PRN Administration Moderate Pain (Level 4-6) Multi-Ingredient Ointment 1 applic 06/10/23 04:22 06/10/23 05:34 Zinc Oxide 20% Oint 30 Gm Tube TOP 1 applic PRN PRN Administration Skin Care Oxycodone HCl 5 mg 06/07/23 06:00 06/10/23 04:20 Oxycodone 5 Mg Tablet PO Not Given TID [facility] Sodium Chloride 10 ml 06/07/23 09:00 06/10/23 08:44 Sodium Chloride Flush 0.9% 10 Ml Syringe IVP 10 ml 0100,0900,1700 [facility] Administration - Lab Result Fish Bone Diagrams: 06/09/23 07:16 06/09/23 07:16 - Additional Planning My Orders: My Active Orders 06/09/23 08:48 LORazepam INJ [Ativan Inj (Vial)] 0.5 mg IVP Q2H PRN Morphine Oral Soln [Roxanol] 10 mg PO Q2HR PRN 06/09/23 08:49 HYDROmorphone 1MG CARP [Dilaudid 1Mg Carp] 1 mg IVP Q2H PRN 06/10/23 04:22 Zinc Oxide 20% Oint [Zinc Oxide] 1 applic TOP PRN PRN 06/10/23 07:16 RT [Nebulizer/MDI Tx.] [RC] .q4prn 06/10/23 09:09 DIET [NPO] [DIET] ACETAMINOPHEN 1000MG IV Q6H PRN PAIN Acetaminophen 1,000 mg/100 ml [Acetaminophen] 1,000 mg in 100 ml IV Q6HR Scopolamine Patch [Transderm-Scop] 1 patch TOP Q3D Subjective - Subjective Patient Reports: Other (He wakes up and moans 3 times then coughs, with garbled voice he can answer that he is in the hospital but otherwise cannot carry on a conversation) Nursing Reports: Other (Nursing tried to suction his throat but he bites down on the Yankauer. Nursing asks him as if he is in pain and he answers no) Objective Vital Signs: Vital Signs - 24 hr 06/09/23 06/09/23 06/09/23 09:21 16:00 21:35 Temperature 36.9 C Heart Rate Heart Rate [ 93 Brachial] Respiratory 20 Rate Blood Pressure 118/53 L [Left Brachial artery] O2 Saturation 98 If not protocol 6 6 6 : Oxygen Flow, liters/minute 06/10/23 06/10/23 06/10/23 00:47 03:35 05:30 Temperature 37.5 C 37.6 C 38.1 C H Heart Rate Heart Rate [ 104 H 99 105 H Brachial] Respiratory 20 20 20 Rate Blood Pressure 98/53 L 110/64 [Left Brachial artery] O2 Saturation 92 96 93 If not protocol 6 6 6 : Oxygen Flow, liters/minute 06/10/23 06/10/23 06/10/23 06:50 07:17 07:35 Temperature 36.3 C L 36.7 C Heart Rate 108 H Heart Rate [ 108 H Brachial] Respiratory 24 20 Rate Blood Pressure 106/60 [Left Brachial artery] O2 Saturation 93 If not protocol 6 4 : Oxygen Flow, liters/minute Oxygen O2 Source Nasal cannula I&O (Last 24 Hrs): Intake and Output Totals x24h 06/08/23 06/09/23 06/10/23 23:59 23:59 23:59 Intake Total 17346 1125.833 100 Output Total 56014 1925 675 Balance 110 -799.167 -575 General: Other (Obtunded, wakes up intermittently, moves all extremities, answers with a garbled voice) HEENT: Mucous membr. moist/pink, Other (Long hair and long alicea and is disheveled) Neck: Supple Neuro: Other (Lethargic, moves all extrem, answers with garbled speech, is orien curtis to place) Cardiovascular: Regular rate, No murmurs Respiratory: No respiratory distress Abdomen: Soft, No tenderness Genitourinary: Other (Herbert in place) Extremities: No edema - Results Results: Laboratory Results WBC 23.1 x10^3/uL (4.8-10.8) H 06/09/23 07:16 RBC 3.21 10^6/uL (4.70-6.10) L 06/09/23 07:16 Hgb 7.6 g/dL (14.0-18.0) L 06/09/23 07:16 Hct 25.3 % (42.0-52.0) L 06/09/23 07:16 MCV 78.8 fL (80.0-94.0) L 06/09/23 07:16 MCH 23.7 pg (27.0-31.0) L 06/09/23 07:16 MCHC 30.0 g/dL (32.0-36.0) L 06/09/23 07:16 RDW 17.7 % (12.0-15.0) H 06/09/23 07:16 Plt Count 236 10^3/uL (130-450) 06/09/23 07:16 MPV 9.7 fL (7.4-11.4) 06/09/23 07:16 Neut # (Auto) Not Reportable 06/09/23 07:16 Lymph # (Auto) Not Reportable 06/09/23 07:16 Travis # (Auto) Not Reportable 06/09/23 07:16 Eos # (Auto) Not Reportable 06/09/23 07:16 Baso # (Auto) Not Reportable 06/09/23 07:16 Absolute Nucleated RBC Not Reportable 06/09/23 07:16 Total Counted 100 06/09/23 07:16 Band Neuts % (Manual) 3 % (0-10) 06/09/23 07:16 Reactive Lymphs % (Man) 1 % 06/09/23 07:16 Abnorm Lymph % (Manual) 0 % 06/09/23 07:16 Nucleated RBC % Not Reportable 06/09/23 07:16 Neutrophils # (Manual) 21.5 10^3/uL (1.5-6.6) H 06/09/23 07:16 Lymphocytes # (Manual) 1.4 10^3/uL (1.5-3.5) L 06/09/23 07:16 Monocytes # (Manual) 0.2 10^3/uL (0.0-1.0) 06/09/23 07:16 Eosinophils # (Manual) 0.0 10^3/uL (0-0.7) 06/09/23 07:16 Basophils # (Manual) 0.0 10^3/uL (0-0.1) 06/09/23 07:16 Differential Comment MANUAL DIFFERENTIAL 06/09/23 07:16 Manual Slide Review Indicated 06/07/23 09:50 Platelet Estimate NORMAL (130-450,000) (NORMAL) 06/06/23 23:04 Platelet Morphology NORMAL APPEARANCE (NORMAL) 06/06/23 23:04 RBC Morph Micro Appear 3+ ANISOCYTOSIS (NORMAL) 06/09/23 07:16 Sodium 143 mmol/L (135-145) 06/09/23 07:16 Potassium 4.3 mmol/L (3.5-4.5) 06/09/23 07:16 Chloride 114 mmol/L (101-111) H 06/09/23 07:16 Carbon Dioxide 21 mmol/L (21-32) 06/09/23 07:16 Anion Gap 8.0 (6-13) 06/09/23 07:16 BUN 82 mg/dL (6-20) H* 06/09/23 07:16 Creatinine 2.6 mg/dL (0.6-1.3) H 06/09/23 07:16 Estimated GFR (MDRD) 24 (>89) L 06/09/23 07:16 Glucose 210 mg/dL (74-104) H 06/09/23 07:16 POC Whole Bld Glucose 236 mg/dL (70 - 100) H 06/10/23 07:31 Estimat Average Glucose 192 mg/dL (70-100) H 06/07/23 04:52 Hemoglobin A1c % 8.3 % (4.27-6.07) H 06/07/23 04:52 Lactic Acid 1.3 mmol/L (0.5-2.2) 06/09/23 07:16 Calcium 9.4 mg/dL (8.5-10.3) 06/09/23 07:16 Phosphorus 6.4 mg/dL (2.5-5.0) H 06/08/23 05:27 Magnesium 1.9 mg/dL (1.7-2.3) 06/08/23 05:27 Iron < 10 ug/dL (50-212) L 06/07/23 04:52 TIBC 171 ug/dL (250-450) L 06/07/23 04:52 % Saturation TNP 06/07/23 04:52 Transferrin 122 mg/dL (203-362) L 06/07/23 04:52 Total Bilirubin 0.4 mg/dL (0.2-1.0) 06/06/23 23:04 AST 9 IU/L (10-42) L 06/06/23 23:04 ALT 13 IU/L (10-60) 06/06/23 23:04 Alkaline Phosphatase 52 IU/L (42-121) 06/06/23 23:04 Total Protein 5.2 g/dL (6.4-8.9) L 06/06/23 23:04 Albumin 2.3 g/dL (3.2-5.5) L 06/06/23 23:04 Globulin 2.9 g/dL (2.1-4.2) 06/06/23 23:04 Albumin/Globulin Ratio 0.8 (1.0-2.2) L 06/06/23 23:04 Lipase 16 U/L (11-82) 06/06/23 23:04 Urine Color RED/BLOODY 06/07/23 03:55 Urine Clarity TURBID (CLEAR) 06/07/23 03:55 Urine pH 6.5 PH (5.0-7.5) 06/07/23 03:55 Ur Specific [place] 1.015 (1.002-1.030) 06/07/23 03:55 Urine Protein >=300 mg/dL (NEGATIVE) H 06/07/23 03:55 Urine Glucose (UA) 250 mg/dL (NEGATIVE) H 06/07/23 03:55 Urine Ketones 15 mg/dL (NEGATIVE) H 06/07/23 03:55 Urine Occult Blood LARGE (NEGATIVE) H 06/07/23 03:55 Urine Nitrite POSITIVE (NEGATIVE) H 06/07/23 03:55 Urine Bilirubin MODERATE (NEGATIVE) H 06/07/23 03:55 Urine Urobilinogen 4 E.U./dL (NORMAL) H 06/07/23 03:55 Ur Leukocyte Esterase MODERATE (NEGATIVE) H 06/07/23 03:55 Urine RBC TNTC /HPF (0-5) H 06/07/23 03:55 Urine WBC 6-10 /HPF (0-3) H 06/07/23 03:55 Ur Squamous Epith Cells RARE Squamous (<= Few) 06/07/23 03:55 Urine Bacteria Moderate /HPF (None Seen) H 06/07/23 03:55 Ur Microscopic Review INDICATED 06/07/23 03:55 Urine Culture Comments INDICATED 06/07/23 03:55 - Procedures Procedures: Procedures CLOSED ENDOSCOPIC BIOPSY OF LARGE INTESTINE (01/18/14) DILATION OF LEFT URETER WITH INTRALUMINAL DEVICE, ENDO (05/23/23) DILATION OF URETHRA, ENDO (05/23/23) DRAINAGE OF BLADDER WITH DRAINAGE DEVICE, ENDO (05/23/23) ENDOSC POLYPECTOMY OF LG INTEST (01/18/14) ENDOSCOPIC BIOPSY OF RECTUM (01/18/14) OTH & OPEN REPAIR INDIRECT INGUINAL HERNIA W GRFT OR PROSTH (04/15/13) REMOVAL OF INTRALUMINAL DEVICE FROM URETER, ENDO (05/23/23)
[2023-06-10] MEDS: SCOPOLAMINE PATCH TOP SCH (09:55)
[2023-06-10] MEDS: INSULIN REGULAR HUMAN 300 UNIT/3 ML VIAL SUBQ SCH (12:00)
--- NOTE | 2023-06-11 17:35 | PROVIDER PROGRESS NOTE ---
Assessment/Plan - Problem List (1) AMS (altered mental status) Assessment/Plan: When he awakes, he moans less now, garbles his responses. He did not pass his swallow screen on 06/10 Nurse tried to suction his throat with Yankauer and he does not cooperate, bites on the Yankauer tube Plan: I stopped his diet and order n.p.o. except sips and chips. I ordered [id number] glucose fingerstick checks every 6 hours, not ac & hs I ordered sliding scale insulin coverage every 6 hours I changed all his essential p.o. meds to IV form Cont Scopolamine patch, which has helped his gurgling and inability to expect orate Appreciate Palliative Care input, who suggested a time trial of his iv fluids and iv antibx He is not oriented or awake enough to be able to tell us if we should stop his IV fluids and IV antibiotics, so these will be continued with a time trial planned. He never set up a DPOA for us to get directions from. Continue with meds to keep his pain under control, cont oral care and treat any anxiety. (2) Bladder outlet obstruction Assessment/Plan: CT showed : L stent in place, persistent L hydroureternephrosis. Increased prominence of R hydronephrosis and mild R hydroureter. Blood clots noted in bladder. Pt has a Hx of bladder CA with L sided ureter compression, hydro-nephrosis, resulting in prior L stent placement. Right and left ureter stents were placed by urology yesterday 06/07 with success. 200 cc of clot in bladder removed. He has had b;ladder irrigation and the blood has cleared This has been a ongoing problem due to his complex Hx of bladder CA however pt has refused to follow up with oncology for treatment (missed his appt last week). Urologist felt he has 2 weeks to live. Plan: Will keep Herbert in place, now for comfort measures (3) Urinary tract infection Conclusion/Plan: Pt with a Hx of bladder CA, had UA in ER showing RBC's > 300 urine protein, glucose 250, urine ketones 15, (+) nitrites, moderate bilirubin, WBC's 6-10. Pt denied any fever or chills. On CBC his WBC was 31.9 Plan: Per Urology recommendations, pt will be treated with Levaquin with renal adjustment.and urine will be cultured for sensitivity. I will give him a time trial with a total 5-day course of antibiotics, stop date after that (4) OLVIN (acute kidney injury) Conclusion/Plan: In ER, pt found to have OLVIN with creatinine of 3.7, elevated from his baseline creat which was 0.9 days ago. Pt was on the floor for about 30 min prior to EMS being called. IV fluids given. Treating UTI as noted. Pt also underwent stent placement by Urologist to help with ureter obstruction. Plan: Cont iv fluids, since he is somnolent and not eating or drinking yet again today. 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 Pt recently seen in ED on the and was also admitted here at [facility] 05-23-23 to 05-28-23. Both visits related to complications with bladder tumor causing L sided ureter compression, hydro-nephrosis, resulting in needing stent placement. Recent CT scans show multiple rapidly enlarging pulm metastases. Per ER note, pt has declined Hospice care and recently failed to follow up with oncologist. Pt does not appear to have a good prognosis and has had this explained to him but he does not wanting any aggressive treatment. Plan: Palliative Care consult and recommendations appreciated (6) Fall at home Pt presented to ER via EMS for a ground level fall that occurred yesterday night while getting out of bed to go to the bathroom, states that he lost his balanced and fell to the floor but denies any head injury or LOC. Pt remained on the floor for around 30 min due to inability to pick himself up. Per ER note pt denied any pain but appeared to be uncomfortable via painful moans. Plan: PT and OT evals and orthostatic VS checks were planned initially. I cancelled PT and OT evals (7) Rib fracture Conclusion/Plan: Pt presented to ER via EMS for a ground level fall that occurred while getting out of bed to go to the bathroom, states that he lost his balanced and fell to the floor but denies any head injury or LOC. Pt remained on the floor for around 30 min due to inability to pick himself up. Per ER note pt denied any pain but appeared to be uncomfortable via painful moans. CT Chest/Abdo: 11th rib comminuted fracture. No signs of a pnuemothorax at that point. Pt was on 97% O2 w/ 2L nasal canula. Lung sounds bilat showed scattered rhonchi. IS was ordered but he is too somnolent to participate Plan: Pain meds as needed Palliative Care consult and recommendations appreciated (8) Chronic respiratory failure Conclusion/Plan: Pt on suppl O2 for his COPD PLan: Cont suppl O2, with target saturation 88-92% (9) DM type 2 Conclusion/Plan: He was on Insulin and Jardiance at home Plan: Cont hypoglycemia prtocol, fingerstick checks, DM diet Cont iv fluids with D5 since is somnolent and not eating (10) Hx HTN Conclusion/Plan: BP is running 90's Plan: Hold his BP meds Cont iv with NS, I will stop that after a time trial (11) Anemia Conclusion/Plan: Pt found to have anemia, microcytic. Hgb 8.4, MCV 77.9 Plan: I will stop lab draws after a time trial of IVF and IV antibiotics - Current Meds Current Meds: Current Medications Generic Name Dose Route Start Last Admin Trade Name Freq PRN Reason Stop Dose Admin Albuterol/Ipratropium 3 ml 06/07/23 06:02 06/10/23 07:15 Ipratropium/Albuterol 3 Ml Neb INH 3 ml Q6H PRN Administration Shortness of Air/Wheezing Hydromorphone HCl 1 mg 06/09/23 08:49 06/11/23 14:27 Hydromorphone 1 Mg/Ml Carpuject IVP 1 mg Q2H PRN Administration Severe Pain (Level 7-10) Levofloxacin 750 mg in 150 mls @ 100 mls/hr 06/09/23 18:00 06/09/23 19:38 Levaquin 750 Mg/150 Ml IV 06/12/23 00:01 Infused Q48H DK Infusion Dextrose/Sodium Chloride 1,000 mls @ 50 mls/hr 06/08/23 20:00 06/11/23 13:38 D5ns IV 06/12/23 00:01 50 mls/hr .Q20H DK Administration Insulin Human Regular 1 - 5 unit 06/10/23 12:00 06/11/23 11:38 Insulin Regular Human 300 Unit/3 Ml Vial SUBQ 06/12/23 00:01 3 unit Q6HR DK Administration Protocol Lorazepam 0.5 mg 06/09/23 08:48 06/09/23 10:08 Lorazepam 2 Mg/Ml Vial IVP 0.5 mg Q2H PRN Administration Anxiety Morphine Sulfate 10 mg 06/09/23 08:48 06/10/23 22:25 Morphine Miroslava 10 Mg/0.5 Ml Oral Syringe PO 10 mg Q2HR PRN Administration Moderate Pain (Level 4-6) Multi-Ingredient Ointment 1 applic 06/10/23 04:22 06/10/23 05:34 Zinc Oxide 20% Oint 30 Gm Tube TOP 1 applic PRN PRN Administration Skin Care Scopolamine HBr 1 patch 06/10/23 09:09 06/10/23 09:55 Scopolamine Patch TOP 1 patch Q3D DK Administration Sodium Chloride 10 ml 06/07/23 09:00 06/11/23 09:52 Sodium Chloride Flush 0.9% 10 Ml Syringe IVP 10 ml 0100,0900,1700 DK Administration - Lab Result Fish Bone Diagrams: 06/09/23 07:16 06/09/23 07:16 Subjective - Subjective Patient Reports: Other (Asleep) Nursing Reports: Other (Less awakening with moaning, over the last 24 hours) Objective Vital Signs: Vital Signs - 24 hr 06/10/23 06/11/23 06/11/23 21:30 00:00 08:00 Temperature 36.7 C 36.8 C Heart Rate [ 86 88 Brachial] Respiratory 16 20 Rate Blood Pressure 111/53 L [Left Brachial artery] Blood Pressure 123/55 L [Right Brachial artery] O2 Saturation 93 91 L If not protocol 4 4 4 : Oxygen Flow, liters/minute 06/11/23 06/11/23 15:23 15:27 Temperature 36.7 C Heart Rate [ 92 99 Brachial] Respiratory 20 Rate Blood Pressure [Left Brachial artery] Blood Pressure 88/54 L 117/61 [Right Brachial artery] O2 Saturation 94 If not protocol 4 : Oxygen Flow, liters/minute Oxygen O2 Source Nasal cannula I&O (Last 24 Hrs): Intake and Output Totals x24h 02/21/24 02/22/24 02/23/24 23:59 23:59 23:59 Intake Total 7480.398 8752 1000 Output Total 1925 1625 850 Balance -799.167 -525 150 General: Other (Asleep, moves all extremities spontaneously, awakens to pain) HEENT: Mucous membr. moist/pink Neuro: Other (Asleep, moves all extremities spontaneously, awakens to pain) Cardiovascular: No murmurs Respiratory: No respiratory distress Abdomen: Soft Genitourinary: Other (has a Herbert) Extremities: Other (Trace edema) - Results Results: Laboratory Results WBC 23.1 x10^3/uL (4.8-10.8) H 06/09/23 07:16 RBC 3.21 10^6/uL (4.70-6.10) L 06/09/23 07:16 Hgb 7.6 g/dL (14.0-18.0) L 06/09/23 07:16 Hct 25.3 % (42.0-52.0) L 06/09/23 07:16 MCV 78.8 fL (80.0-94.0) L 06/09/23 07:16 MCH 23.7 pg (27.0-31.0) L 06/09/23 07:16 MCHC 30.0 g/dL (32.0-36.0) L 06/09/23 07:16 RDW 17.7 % (12.0-15.0) H 06/09/23 07:16 Plt Count 236 10^3/uL (130-450) 06/09/23 07:16 MPV 9.7 fL (7.4-11.4) 06/09/23 07:16 Neut # (Auto) Not Reportable 06/09/23 07:16 Lymph # (Auto) Not Reportable 06/09/23 07:16 [place] # (Auto) Not Reportable 06/09/23 07:16 Eos # (Auto) Not Reportable 06/09/23 07:16 Baso # (Auto) Not Reportable 06/09/23 07:16 Absolute Nucleated RBC Not Reportable 06/09/23 07:16 Total Counted 100 06/09/23 07:16 Band Neuts % (Manual) 3 % (0-10) 06/09/23 07:16 Reactive Lymphs % (Man) 1 % 06/09/23 07:16 Abnorm Lymph % (Manual) 0 % 06/09/23 07:16 Nucleated RBC % Not Reportable 06/09/23 07:16 Neutrophils # (Manual) 21.5 10^3/uL (1.5-6.6) H 06/09/23 07:16 Lymphocytes # (Manual) 1.4 10^3/uL (1.5-3.5) L 06/09/23 07:16 Monocytes # (Manual) 0.2 10^3/uL (0.0-1.0) 06/09/23 07:16 Eosinophils # (Manual) 0.0 10^3/uL (0-0.7) 06/09/23 07:16 Basophils # (Manual) 0.0 10^3/uL (0-0.1) 06/09/23 07:16 Differential Comment MANUAL DIFFERENTIAL 06/09/23 07:16 Manual Slide Review Indicated 06/07/23 09:50 Platelet Estimate NORMAL (130-450,000) (NORMAL) 06/06/23 23:04 Platelet Morphology NORMAL APPEARANCE (NORMAL) 06/06/23 23:04 RBC Morph Micro Appear 3+ ANISOCYTOSIS (NORMAL) 06/09/23 07:16 Sodium 143 mmol/L (135-145) 06/09/23 07:16 Potassium 4.3 mmol/L (3.5-4.5) 06/09/23 07:16 Chloride 114 mmol/L (101-111) H 06/09/23 07:16 Carbon Dioxide 21 mmol/L (21-32) 06/09/23 07:16 Anion Gap 8.0 (6-13) 06/09/23 07:16 BUN 82 mg/dL (6-20) H* 06/09/23 07:16 Creatinine 2.6 mg/dL (0.6-1.3) H 06/09/23 07:16 Estimated GFR (MDRD) 24 (>89) L 06/09/23 07:16 Glucose 210 mg/dL (74-104) H 06/09/23 07:16 POC Whole Bld Glucose 230 mg/dL (70 - 100) H 06/11/23 11:24 Estimat Average Glucose 192 mg/dL (70-100) H 06/07/23 04:52 Hemoglobin A1c % 8.3 % (4.27-6.07) H 06/07/23 04:52 Lactic Acid 1.3 mmol/L (0.5-2.2) 06/09/23 07:16 Calcium 9.4 mg/dL (8.5-10.3) 06/09/23 07:16 Phosphorus 6.4 mg/dL (2.5-5.0) H 06/08/23 05:27 Magnesium 1.9 mg/dL (1.7-2.3) 06/08/23 05:27 Iron < 10 ug/dL (50-212) L 06/07/23 04:52 TIBC 171 ug/dL (250-450) L 06/07/23 04:52 % Saturation TNP 06/07/23 04:52 Transferrin 122 mg/dL (203-362) L 06/07/23 04:52 Total Bilirubin 0.4 mg/dL (0.2-1.0) 06/06/23 23:04 AST 9 IU/L (10-42) L 06/06/23 23:04 ALT 13 IU/L (10-60) 06/06/23 23:04 Alkaline Phosphatase 52 IU/L (42-121) 06/06/23 23:04 Total Protein 5.2 g/dL (6.4-8.9) L 06/06/23 23:04 Albumin 2.3 g/dL (3.2-5.5) L 06/06/23 23:04 Globulin 2.9 g/dL (2.1-4.2) 06/06/23 23:04 Albumin/Globulin Ratio 0.8 (1.0-2.2) L 06/06/23 23:04 Lipase 16 U/L (11-82) 06/06/23 23:04 Urine Color RED/BLOODY 06/07/23 03:55 Urine Clarity TURBID (CLEAR) 06/07/23 03:55 Urine pH 6.5 PH (5.0-7.5) 06/07/23 03:55 Ur Specific [place] 1.015 (1.002-1.030) 06/07/23 03:55 Urine Protein >=300 mg/dL (NEGATIVE) H 06/07/23 03:55 Urine Glucose (UA) 250 mg/dL (NEGATIVE) H 06/07/23 03:55 Urine Ketones 15 mg/dL (NEGATIVE) H 06/07/23 03:55 Urine Occult Blood LARGE (NEGATIVE) H 06/07/23 03:55 Urine Nitrite POSITIVE (NEGATIVE) H 06/07/23 03:55 Urine Bilirubin MODERATE (NEGATIVE) H 06/07/23 03:55 Urine Urobilinogen 4 E.U./dL (NORMAL) H 06/07/23 03:55 Ur Leukocyte Esterase MODERATE (NEGATIVE) H 06/07/23 03:55 Urine RBC TNTC /HPF (0-5) H 06/07/23 03:55 Urine WBC 6-10 /HPF (0-3) H 06/07/23 03:55 Ur Squamous Epith Cells RARE Squamous (<= Few) 06/07/23 03:55 Urine Bacteria Moderate /HPF (None Seen) H 06/07/23 03:55 Ur Microscopic Review INDICATED 06/07/23 03:55 Urine Culture Comments INDICATED 06/07/23 03:55 - Procedures Procedures: Procedures CLOSED ENDOSCOPIC BIOPSY OF LARGE INTESTINE (01/18/14) DILATION OF LEFT URETER WITH INTRALUMINAL DEVICE, ENDO (05/23/23) DILATION OF URETHRA, ENDO (05/23/23) DRAINAGE OF BLADDER WITH DRAINAGE DEVICE, ENDO (05/23/23) ENDOSC POLYPECTOMY OF LG INTEST (01/18/14) ENDOSCOPIC BIOPSY OF RECTUM (01/18/14) OTH & OPEN REPAIR INDIRECT INGUINAL HERNIA W GRFT OR PROSTH (04/15/13) REMOVAL OF INTRALUMINAL DEVICE FROM URETER, ENDO (05/23/23)
[2023-06-12 08:11] VITALS: BP 86/50
[2023-06-12 08:56] VITALS: O2SAT 76
--- NOTE | 2023-06-12 11:04 | Discharge Plan ---
Discharge Plan Problem Reviewed?: Yes Disposition: 20 No Smoking: If you smoke, Please STOP! Call for help.
--- NOTE | 2023-06-12 11:05 | DISCHARGE SUMMARY ---
Discharge Summary Admit Date: 06/07/23 Discharge Date: 06/12/23 Discharging Provider: Dr Marcella Pickering Primary Care Provider: Dr David Evans Discharge Disposition: 20 - HPI History of Present Illness: From the H&P of Dr. Heike Collier: 77 y/o WM with a Hx of HTN, HLD, DM2, bladder CA w/ pulm metastases, who lives alone, presented to ER via EMS for a ground level fall that occurred yesterday n ight while getting out of bed to go to the bathroom, states that he lost his balanced and fell to the floor but denies any head injury or LOC. Pt remained on the floor for around 30 min due to inability to get up. Eventually someone came to check on him, found him on the floor, and called 911. Per ER note pt denied any pain but was actually noted to be uncomfortable having painful moans. He got IV Dilaudid. He answers some questions but slowly. He is afebrile and hemodynamically stable. In the ER, they placed a three-way 22 [place] Herbert catheter and irrigate out some clots s/p recommendation from Urologist consult. However he still has significant hematuria and likely still has clots in his bladder. It is unclear if he still taking his aspirin or not. Other workup in the ER shows that he has a new rib fracture sustained from the fall at home and CT scan shows multiple rapidly enlarging pulm metastases. He will be taken to the OR by Urology for replacement of the L ureteral stent and placement of a new R ureteral stent. Pt was recently seen in ED on 06/04/23, and prior to that had been admitted here at [facility] from 05/23/23 to 05/28/23 and both presentations were related to complications with his bladder tumor. It had caused L sided ureter compression, hydro-nephrosis, resulting in stent placement. When he was discharged on 05/28/23, pt had declined Hospice care and also recently failed to follow up with Oncologist. Pt does not have a good prognosis currently and is not wanting any aggressive treatment. Hx of tobacco use and is a COPDer. Several hours postoperatively, he is hypotensive in spite of getting iv fluids and antibiotics. He is sleepy, tired, uncomfortable, and with generalized bladder pain. I asked him about CODE STATUS and he is DO NOT RESUSCITATE. Because of the drop in blood pressure, I asked him if he wanted me to escalate his therapy by going to the ICU, and starting pressors. He said no. Urology discussed the case with me. He felt the patient had a very very poor prognosis with has maybe 2 more weeks of life left. The patient understood that. And as such, the patient did not want me to escalate therapy. He was willing to continue IV fluids and IV antibiotics but if he became septic, had an WI, had a stroke, or an arrhythmia, he did not want treatment. I explained to him that he might soon if he decompensated and he said that was okay. - HOSPITAL COURSE Hospital Course: (1) AMS (altered mental status) He was obtunded and never completely returned to his baseline mental status after his OR procedure. He refused food and liquids. His iv meds and iv fluids were continued. He did not pass his swallow screen on 06/10/23 and all meds were changed to iv or topical form. A Palliative Care consult was requested to help determine his wishes but he did not participate in their discussion due to obtundation. He would only answer with garbled responses. There were no family or a DPOA to contact for direction regarding is wishes. We added medications fo treating his pain and other symptoms, in order to keep him comfortable. Palliative information security consultant advised we give him a time trial of iv fluids and meds, which was done. When these were stopped, meds for comfort were continued. He on 06/12/23. (2) Bladder outlet obstruction CT showed: L stent in place, persistent L hydroureternephrosis, increased prominence of R hydronephrosis and mild R hydroureter. Blood clots were noted in bladder. Pt had a Hx of bladder CA with L sided ureter compression, hydro- nephrosis, resulting in prior L stent placement. Now, right and left ureter stents were placed by urology on 06/07/23 with success. 200 cc of clot in bladder was removed and bladder irrigated until the blood cleared. A Herbert was left in place. (3) Urinary tract infection Pt had UA in ER showing RBC's > 300 urine protein, glucose 250, urine ketones 15, (+) nitrites, moderate bilirubin, WBC's 6-10. Pt denied any fever or chills. On CBC his WBC was 31.9. Per Urology recommendations, he was treated with Levaquin. Per Palliative Care recommendations, we gave him a time trial on this treatment, then stopped. (4) OLVIN (acute kidney injury) In ER, pt found to have OLVIN with creatinine of 3.7, elevated from his baseline creat which was 0.9 several days ago. Per ER note he had been on the floor for about 30 min prior to EMS being called. IV fluids were given and UTI was treated. Pt also underwent stent placement by Urologist to help with ureter obstruction. 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 Pt was recently admitted here from 05-23-23 to 05-28-23 to treat complications of the bladder tumor causing L sided ureter compression, L hydro-nephrosis, resulting in needing stent placement. Now here needed bilateral stents placed for tumor and clot complications. Recent CT scans showed multiple rapidly enlarging pulm metastases. Patient had declined Hospice care at the 05-28-23 discharge, and recently failed to see his oncologist. Palliative Care recommendations were followed. (6) Fall at home Pt presented to ER via EMS for a ground level fall at home that occurred while getting out of bed. Pt remained on the floor for around 30 min due to inability to pick himself up. Imaging for trauma was performed. (7) Rib fracture Pt presented after a ground level fall at home. CT Chest/Abdo: 11th rib comminuted fracture. No signs of a pnuemothorax at that point. Pain medications were ordered. (8) Chronic respiratory failure Pt was on suppl O2 for his COPD (9) DM type 2 He was on Insulin and Jardiance at home. He refused food and liquids and was on iv fluids and sliding scale insulin here. (10) Hx HTN BP was not elevated and his HTN meds were on hold. (11) Anemia Pt found to have microcytic anemia. Hgb 8.4, MCV 77.9. Hgb did not require blood transfusions. - ALLERGIES Allergies/Adverse Reactions: Allergies Allergy/AdvReac Type Severity Reaction Status Date / Time guava Allergy Severe throat Verified 06/08/23 11:03 swells felisa Allergy Severe throat Verified 06/08/23 11:03 swells papaya Allergy Severe throat Verified 06/08/23 11:03 swells passion fruit Allergy Severe Unknown Verified 06/08/23 11:03 Penicillins Allergy Severe Rash Verified 06/06/23 21:56 - MEDICATIONS Home Medications: Ambulatory Orders Medication Instructions Recorded Confirmed Aspirin [Aspir 81] 81 mg PO DAILY 02/20/15 06/06/23 Docusate Sodium 100 mg PO BID 02/20/15 06/06/23 Lisinopril 20 mg PO DAILY 02/20/15 06/06/23 Atorvastatin [Lipitor] 20 mg PO QPM 04/03/23 06/06/23 Insulin Glargine [Lantus Solostar] 45 units SUBQ HS 04/03/23 06/06/23 Ipratropium/Albuterol [Combivent 1 puffs INH Q6HR PRN 04/03/23 06/06/23 Respimat] Empagliflozin [Jardiance] 10 mg PO DAILY 05/18/23 06/06/23 Amlodipine Besylate [Norvasc] 10 mg PO DAILY 05/24/23 06/06/23 Docusate Sodium 100Mg Capsule 100 mg PO DAILY #20 cap 06/04/23 06/06/23 [Colace 100Mg Capsule] Meloxicam [Mobic] 7.5 mg PO BID 10 Days #20 tablet 06/04/23 06/06/23 Tranexamic Acid 650 mg PO TID #30 tablet 06/04/23 06/06/23 oxyCODONE [Roxicodone] 5 mg PO TID #20 tablet 06/04/23 06/06/23 - LABS Result Diagrams: 06/09/23 07:16 06/09/23 07:16
--- NOTE | 2023-06-14 13:16 | ANESTHESIA POST OP EVALUATION ---
Anesthesia Post Eval - Post Anesthesia Eval Vitals: Last Vital Signs Temp 37.0 C 06/12/23 08:00 Pulse 100 06/12/23 08:45 Resp 26 H 06/12/23 08:45 BP 86/50 L 06/12/23 08:00 Pulse Ox 76 L 06/12/23 08:45 O2 Flow Rate 6 06/12/23 08:45 CV Function Including HR & BP: Stable Pain Control: Satisfactory Nausea & Vomiting: Negative Mental Status: Baseline Respiratory Status: Airway Patent Hydration Status: Satisfactory Anesthesia Complications: None
== END 2023-06-12 09:33 | disposition expired | DRG 660 ==
LOC: EDUNIT# → ED 21:50 → MS2 06-07 03:50
PROVIDERS: ADMIT Internal Medicine; ATTEND Internal Medicine
PROC: 0T788DZ Dilation of Bilateral Ureters with Intraluminal Device, Via Natural or Artificial Opening Endoscopic (ICD-10-PCS; 2023-06-07)
PROC: 0TP98DZ Removal of Intraluminal Device from Ureter, Via Natural or Artificial Opening Endoscopic (ICD-10-PCS; 2023-06-07)
PROC: 0T5B8ZZ Destruction of Bladder, Via Natural or Artificial Opening Endoscopic (ICD-10-PCS; principal; 2023-06-07 12:45)
DX: N13.1 Hydronephrosis with ureteral stricture, not elsewhere classified (principal); C78.00 Secondary malignant neoplasm of unspecified lung; S22.32XA Fracture of one rib, left side, initial encounter for closed fracture; R31.0 Gross hematuria; J96.10 Chronic respiratory failure, unspecified whether with hypoxia or hypercapnia; E46 Unspecified protein-calorie malnutrition; E87.1 Hypo-osmolality and hyponatremia; N17.9 Acute kidney failure, unspecified; N32.0 Bladder-neck obstruction; C67.9 Malignant neoplasm of bladder, unspecified; W18.30XA Fall on same level, unspecified, initial encounter; Y92.009 Unspecified place in unspecified non-institutional (private) residence as the place of occurrence of the external cause; E11.9 Type 2 diabetes mellitus without complications; Z79.84 Long term (current) use of oral hypoglycemic drugs; Z79.4 Long term (current) use of insulin; I10 Essential (primary) hypertension; Z66 Do not resuscitate; D50.9 Iron deficiency anemia, unspecified; E78.5 Hyperlipidemia, unspecified; N32.89 Other specified disorders of bladder; J44.9 Chronic obstructive pulmonary disease, unspecified; R41.82 Altered mental status, unspecified; R53.1 Weakness; G89.3 Neoplasm related pain (acute) (chronic); D72.829 Elevated white blood cell count, unspecified; F17.200 Nicotine dependence, unspecified, uncomplicated; N39.0 Urinary tract infection, site not specified; Z51.5 Encounter for palliative care; E66.9 Obesity, unspecified; Z68.31 Body mass index [BMI] 31.0-31.9, adult; R31.9 Hematuria, unspecified
CPT/HCPCS: 36415; 51702; 74176; 80048; 80053; 81001; 83036; 83540; 83605; 83690; 83735; 84100; 84466; 85025; 85027; 87086; 87181; 94640; 96374; 99285; A9270; C1758; C2617; J0131; J1170; J1815; J2060; J3490; J7120; 81003